=== PATIENT | female | born 1955 | race Hispanic/Latino ===

== ENCOUNTER 2016-12-23 10:28 | Emergency (ER) | payer MEDICARE ==
[2016-12-23] MEDS ORDERED: Albuterol-Ipratrop 3 mg / 0.5 (3 ml) UD IH STA ×2 (10:51)
[2016-12-23] MEDS ORDERED: Albuterol-Ipratrop 3 mg / 0.5 (3 ml) UD ONE (10:53)
--- NOTE | 2016-12-23 10:56 | ED PDOC ---
HPI: SOB/CHF/COPD Time Seen by Provider: 12/23/16 10:41 Chief Complaint (Nursing): Cough, Cold, Congestion Chief Complaint (Provider): Cough, Cold, Congestion History Per: Patient History/Exam Limitations: no limitations Onset/Duration Of Symptoms: Days Current Symptoms Are (Timing): Still Present Initiating Event: Upper Respiratory Illness Quality: Tightness Exacerbating Factor(s): Coughing Current Respiratory Medications: See Home Med List Associated Symptoms: Productive Cough. denies: Fever, Chills Additional Complaint(s): Patient is a 61 year old female with a history of COPD, presents to ED for evaluation of right sided chest pain for 2 days. Pain is associated with cough productive of yellow/brown sputum. Patient also reports SOB unrelieved with home nebulizer. Denies fever, palpations, dizziness, headache or hemoptysis Past Medical History Reviewed: Historical Data, Nursing Documentation, Vital Signs Vital Signs: Last Vital Signs Temp 98.2 F 12/23/16 10:37 Pulse 92 H 12/23/16 10:37 Resp 28 H 12/23/16 11:22 BP 132/79 12/23/16 10:37 Pulse Ox 95 12/23/16 11:22 - Medical History PMH: COPD, Fibromyalgia, HTN - Surgical History Surgical History: No Surg Hx - Family History Family History: States: Unknown Family Hx - Home Medications Home Medications: Ambulatory Orders Medication Instructions Recorded Naproxen [Naprosyn] 500 mg PO BID 09/28/16 Oxycodone HCl [Oxycontin] 20 mg PO Q12 09/28/16 Pregabalin [Lyrica] 75 mg PO BID 09/28/16 oxyCODONE/Acetaminophen [Percocet 1 tab PO BID 09/28/16 5/325 mg Tab] Albuterol 0.083% [Albuterol 3 ml IH Q8 #1 neb 12/23/16 Sulfate 3 Ml] Azithromycin [Zithromax] 250 mg PO DAILY #6 tab 12/23/16 Non-Formulary 1 ea .ROUTE Q6 #1 ea 12/23/16 predniSONE [predniSONE Tab] 10 mg PO TID #15 tab 12/23/16 - Allergies Allergies/Adverse Reactions: Allergies Allergy/AdvReac Type Severity Reaction Status Date / Time No Known Allergies Allergy Verified 02/03/15 19:48 Review of Systems ROS Statement: Except As Marked, All Systems Reviewed And Found Negative Constitutional: Negative for: Fever, Chills Cardiovascular: Positive for: Chest Pain. Negative for: Palpitations, Light Headedness Respiratory: Positive for: Cough, Shortness of Breath, Sputum Gastrointestinal: Negative for: Abdominal Pain Musculoskeletal: Negative for: Neck Pain Skin: Negative for: Rash Physical Exam - Reviewed Nursing Documentation Reviewed: Yes Vital Signs Reviewed: Yes - Physical Exam Appears: Positive for: Non-toxic, No Acute Distress Skin: Positive for: Normal Color, Warm. Negative for: Rash Eye Exam: Positive for: Normal appearance Neck: Positive for: Normal, Painless ROM Cardiovascular/Chest: Positive for: Regular Rate, Rhythm, Chest Non Tender Respiratory: Positive for: Decreased Breath Sounds, Rhonchi, Wheezing (mild expiratory right greater than left). Negative for: Respiratory Distress Gastrointestinal/Abdominal: Positive for: Normal Exam. Negative for: Tenderness Extremity: Positive for: Normal ROM. Negative for: Pedal Edema, Calf Tenderness Neurologic/Psych: Positive for: Alert, Oriented - Laboratory Results Result Diagrams: 12/23/16 10:55 12/23/16 10:55 - ECG O2 Sat by Pulse Oximetry: 89 (RA) Pulse Ox Interpretation: Abnormal - Progress Re-evaluation Time: 12:59 Condition: Improved Medical Decision Making Medical Decision Making: Time: 1050 Initial impression: COPD exacerbation r/o pneumonia Initial plan: -- VBG -- CMP -- Urine dip -- CBC -- CXR -- Duoneb x2, Solumedrol -- Blood culture Scribe Attestation: Documented by Lorie Middleton acting as a scribe for Jan Eason MD MD Scribe Attestation: All medical record entries made by the Scribe were at my direction and personally dictated by me. I have reviewed the chart and agree that the record accurately reflects my personal performance of the history, physical exam, medical decision making, and the department course for this patient. I have also personally directed, reviewed, and agree with the discharge instructions and disposition. Disposition - Clinical Impression Clinical Impression: COPD exacerbation - Patient ED Disposition Is Patient to be Admitted: No Counseled Patient/Family Regarding: Studies Performed, Diagnosis, Need For Followup, Rx Given - Disposition Referrals: [facility] [place] [Outside] Disposition: Routine/Home Disposition Time: 13:00 Condition: FAIR Prescriptions: Albuterol 0.083% [Albuterol Sulfate 3 Ml] 3 ml IH Q8 #1 neb Non-Formulary 1 ea .ROUTE Q6 #1 ea Azithromycin [Zithromax] 250 mg PO DAILY #6 tab predniSONE [predniSONE Tab] 10 mg PO TID #15 tab Instructions: COPD (Chronic Obstructive Pulmonary Disease) (ED)
[2016-12-23 11:22] LABS: BASO # 0.1 K/uL (0.0-0.2); BASO % 0.8 % (0.0-2.0); EOS # 0.2 K/uL (0.0-0.7); EOS % 1.8 % (0.0-4.0); HEMATOCRIT 45.1 % (34.0-47.0); LYMPH % 23.2 % (20.0-40.0); MEAN CORPUSCULAR HEMOGLOBIN 31.4 pg (27.0-31.0); MEAN CORPUSCULAR HGB CONC 33.4 g/dL (33.0-37.0); MEAN PLATELET VOLUME 7.3 fl (7.2-11.7); MONO # 0.6 K/uL (0.0-0.8); MONO % 7.4 % (0.0-10.0); NEUT # 5.8 K/uL (1.8-7.0); NEUT % 66.8 % (50.0-75.0); NRBC % 0.1 % (0.0-0.0); RED CELL DISTRIBUTION WIDTH 13.7 % (11.5-14.5); WHITE BLOOD COUNT 8.6 K/uL (4.8-10.8)
[2016-12-23 11:42] LABS: ALB/GLOB RATIO 1.1 (1.0-2.1); ALKALINE PHOSPHATASE 90 U/L (38-126); ALT/SGPT 10 U/L (9-52); AST/SGOT 18 U/L (14-36); BILIRUBIN,TOTAL 0.5 mg/dl (0.2-1.3); BLOOD UREA NITROGEN 14 mg/dl (7-17); CALCIUM 9.3 mg/dL (8.4-10.2); CARBON DIOXIDE 30 mmol/L (22-30); CHLORIDE 103 mmol/L (98-107); GFR AFRICAN-AMERICAN > 60; GLUCOSE,RANDOM 97 mg/dL (65-105); POTASSIUM 3.8 MMOL/L (3.6-5.0); SODIUM 143 mmol/l (132-148)
--- NOTE | 2016-12-23 12:48 | RAD ---
HISTORY: Cough. Technique: Single view portable erect @ 11:40. COMPARISON: 09/28/2016. FINDINGS: LUNGS: No active pulmonary disease. PLEURA: No significant pleural effusion identified, no pneumothorax apparent. CARDIOVASCULAR: No radiographic findings to suggest acute or significant cardiovascular disease. OSSEOUS STRUCTURES: No significant abnormalities. VISUALIZED UPPER ABDOMEN: Normal. OTHER FINDINGS: None. IMPRESSION: No active disease. No significant interval change compared to the prior examination(s).
[2016-12-23 13:07] VITALS: BP 132/74; PULSE 74; RESP 19; TEMP 98; O2SAT 96
== END 2016-12-23 13:20 | disposition home or self-care (01) ==
LOC: SUPCPDRO 10:28 → H.ER 10:28
DX: J44.1 Chronic obstructive pulmonary disease with (acute) exacerbation (principal); R05 Cough; I10 Essential (primary) hypertension; M79.7 Fibromyalgia
CPT/HCPCS: 71010; 80053; 85025; 87040; 94640; 96374; 99284; J2930

== ENCOUNTER 2017-06-17 07:09 | Emergency (ER) | payer MEDICARE ==
[2017-06-17 07:22] VITALS: BP 172/93; PULSE 82; RESP 16; TEMP 98.9; O2SAT 90
[2017-06-17] MEDS: Tetracaine 0.5% Ophth 2 ML BOTTLE OD ONE (08:00)
[2017-06-17] MEDS ORDERED: Tetracaine 0.5% Ophth 2 ML BOTTLE ONE (08:13)
[2017-06-17] MEDS: Ciprofloxacin 0.3% OPTH SOLN OD ONE (08:30)
--- NOTE | 2017-06-17 08:44 | ED PDOC ---
HPI: Eye Injury/Pain Time Seen by Provider: 06/17/17 07:19 Chief Complaint (Nursing): Eye Problem Chief Complaint (Provider): Eye problem History Per: Patient History/Exam Limitations: no limitations Onset/Duration Of Symptoms: Days (x1) Current Symptoms Are (Timing): Still Present Associated Symptoms: Pain (mild pain to light), FB Sensation, Other (mild blurry vision) Additional Complaint(s): Jesús Alex is a 62 year old female, with a past medical history of fibromyalgia and hypertension, who presents to the emergency department complaining of right eye pain since awakening. Patient has an indwelling pain pump. She thinks she might have poked her eye while sleeping but is unsure. Patient reports mild blurry vision, sense of foreign body and mild pain to light. She states she didn't take her blood pressure this morning. She denies any headaches, changes of speech or vision. PMD: None provided. Past Medical History Reviewed: Historical Data, Nursing Documentation, Vital Signs Vital Signs: Last Vital Signs Temp 98.9 F 06/17/17 07:19 Pulse 82 06/17/17 07:19 Resp 16 06/17/17 07:19 BP 172/93 H 06/17/17 07:19 Pulse Ox 90 L 06/17/17 07:19 - Medical History PMH: Asthma, COPD, Fibromyalgia, HTN, Hypercholesterolemia - Family History Family History: States: Unknown Family Hx - Social History Current smoker - smoking cessation education provided: Yes (Heavy smoker >10 cigarettes daily) Alcohol: None Drugs: Denies - Home Medications Home Medications: Ambulatory Orders Medication Instructions Recorded Naproxen [Naprosyn] 500 mg PO BID 09/28/16 Oxycodone HCl [Oxycontin] 20 mg PO Q12 09/28/16 Pregabalin [Lyrica] 75 mg PO BID 09/28/16 oxyCODONE/Acetaminophen [Percocet 1 tab PO BID 09/28/16 5/325 mg Tab] Albuterol 0.083% [Albuterol 3 ml IH Q8 #1 neb 12/23/16 Sulfate 3 Ml] Azithromycin [Zithromax] 250 mg PO DAILY #6 tab 12/23/16 Non-Formulary 1 ea .ROUTE Q6 #1 ea 12/23/16 predniSONE [predniSONE Tab] 10 mg PO TID #15 tab 12/23/16 - Allergies Allergies/Adverse Reactions: Allergies Allergy/AdvReac Type Severity Reaction Status Date / Time No Known Allergies Allergy Verified 06/17/17 07:18 Review of Systems ROS Statement: Except As Marked, All Systems Reviewed And Found Negative Eyes: Positive for: Pain (right eye pain and mild pain to light), Vision Change (mild blurry vision), Other (sense of foreign body) Neurological: Negative for: Change in Speech (or vision), Headache Physical Exam - Reviewed Nursing Documentation Reviewed: Yes Vital Signs Reviewed: Yes - Physical Exam Appears: Positive for: Well, Non-toxic, No Acute Distress Head Exam: Positive for: ATRAUMATIC, NORMAL INSPECTION, NORMOCEPHALIC Skin: Positive for: Normal Color, Warm, Dry Eye Exam: Positive for: Normal appearance (Cornea is quiet and appearance of pupil is 3mm and reactive. ), Conjunctival injection (mild to right eye), Other (Mild increased lachrymation) Neck: Positive for: Normal, Painless ROM, Supple Respiratory: Positive for: Normal Breath Sounds Extremity: Positive for: Normal ROM. Negative for: Pedal Edema, Deformity Neurologic/Psych: Positive for: Alert, Oriented, Gait (normal). Negative for: Motor/Sensory Deficits (strength is normal) - ECG O2 Sat by Pulse Oximetry: 90 (RA) Pulse Ox Interpretation: Abnormal Medical Decision Making Medical Decision Making: Initial Impression: Eye pain and corneal abrasion. Initial Plan: --Cilocan 0.3% Ophth SOLN --Tetracaine 0.5% Ophth Soln --reevaluation -2 drops of tetracaine applied to right eye with some relief of symptoms. Fluorescein applied to right eye with minimal uptake in lower cornea. Patient started on Ciprofloxacin drops and she states she will see her eye doctor today. Visual acuity performed with 20/30 on both eyes symmetric. Patient understands need for follow up with production bow maker, and referral for Dr. Chery contact center team lead. Patient did not want treatment for blood pressure in ER. Scribe Attestation: Documented by Praveen Adam, acting as a scribe for Alejandro Drake MD Provider Scribe Attestation: All medical record entries made by the Scribe were at my direction and personally dictated by me. I have reviewed the chart and agree that the record accurately reflects my personal performance of the history, physical exam, medical decision making, and the department course for this patient. I have also personally directed, reviewed, and agree with the discharge instructions and disposition. Disposition - Clinical Impression Clinical Impression: Eye pain, Corneal abrasion - Disposition Referrals: Peter Chery MD [Staff Provider] - Disposition Time: 08:30 Condition: STABLE Additional Instructions: Return to ER for any change in vision, use Cipro drops (2 drops to R eye) every 4 hours today. See your eye doctor today, or Dr Chery, if unable to see your own eye doctor. Instructions: Corneal Abrasion (ED), Blurred Vision (ED), Eye Pain (ED)
== END 2017-06-17 08:40 | disposition home or self-care (01) ==
LOC: H.ER 07:09
DX: H53.8 Other visual disturbances (principal)

== ENCOUNTER 2017-12-27 08:42 | Emergency (ER) | payer MEDICARE ==
[2017-12-27 08:56] VITALS: BMI 22.3
[2017-12-27 08:57] VITALS: BP 143/76; PULSE 79; RESP 16; TEMP 98.3; O2SAT 96
[2017-12-27] MEDS ORDERED: Morphine 5 MG/ML SYRINGE IM STA (09:18)
--- NOTE | 2017-12-27 09:22 | ED PDOC ---
HPI: General Adult Time Seen by Provider: 12/27/17 09:10 Chief Complaint (Nursing): Upper Extremity Problem/Injury Additional Complaint(s): 62 y/o F c PMHx HTN, HLD, COPD, fibromyalgia, pain pump implant, on chronic opiates p/w L shoulder pain x 4 days. Patient states she was laying down when someone knocked on the door and she suddenly jolted and has had this L shoulder pain since then. Pain is sharp, worse with movement or palpation, nonradiating, constant. She states it feels like an acute injury and not associated with her chronic pain. Denies fever, chills, dyspnea, nausea, vomiting, headstrike, LOC, numbness, or motor weakness. Past Medical History Vital Signs: Last Vital Signs Temp 98.3 F 12/27/17 08:56 Pulse 79 12/27/17 08:56 Resp 16 12/27/17 08:56 BP 143/76 12/27/17 08:56 Pulse Ox 96 12/27/17 09:23 - Medical History PMH: Asthma, COPD, Fibromyalgia, HTN, Hypercholesterolemia - Family History Family History: States: Unknown Family Hx - Home Medications Home Medications: Ambulatory Orders Medication Instructions Recorded Naproxen [Naprosyn] 500 mg PO BID 09/28/16 Oxycodone HCl [Oxycontin] 20 mg PO Q12 09/28/16 Pregabalin [Lyrica] 75 mg PO BID 09/28/16 oxyCODONE/Acetaminophen [Percocet 1 tab PO BID 09/28/16 5/325 mg Tab] Albuterol 0.083% [Albuterol 3 ml IH Q8 #1 neb 12/23/16 Sulfate 3 Ml] Azithromycin [Zithromax] 250 mg PO DAILY #6 tab 12/23/16 Non-Formulary 1 ea .ROUTE Q6 #1 ea 12/23/16 predniSONE [predniSONE Tab] 10 mg PO TID #15 tab 12/23/16 - Allergies Allergies/Adverse Reactions: Allergies Allergy/AdvReac Type Severity Reaction Status Date / Time No Known Allergies Allergy Verified 06/17/17 07:18 Review of Systems ROS Statement: Except As Marked, All Systems Reviewed And Found Negative Constitutional: Negative for: Fever Respiratory: Negative for: Shortness of Breath Physical Exam - Physical Exam Comments: Gen: NAD Head: NC/AT Eyes: No scleral icterus ENT: MMM Neck: No midline tenderness, FROM Chest: No tenderness, no clavicular tenderness CV: Regular rate Lungs: No accessory muscle use Extremities: L posterior shoulder tenderness, no edema, erythema or limited ROM Skin: No ecchymosis Neuro: Alert, motor and sensation intact in arm - ECG O2 Sat by Pulse Oximetry: 96 Medical Decision Making Medical Decision Making: Morphine IM injection for pain. Shoulder to exclude fracture or dislocation. XR negative for fracture or dislocation. Will discharge home, continue home medications, f/u PMD, return to ED for worsening pain, inability to range, or fever. Disposition - Clinical Impression Clinical Impression: Shoulder pain - Patient ED Disposition Is Patient to be Admitted: No - Disposition Disposition: Routine/Home Disposition Time: 09:52 Condition: STABLE Instructions: Shoulder Pain (DC) Forms: [employer] (Burkinan)
[2017-12-27] MEDS ORDERED: Morphine 4 MG/ML VIAL IM STA (09:59)
--- NOTE | 2017-12-27 16:50 | RAD ---
PROCEDURE: Radiographs of the Left Shoulder HISTORY: shoulder pain COMPARISON: No prior. FINDINGS: BONES: Normal. No fracture. JOINTS: Normal. Glenohumeral and acromioclavicular joints preserved. No osteoarthritis. SOFT TISSUES: Normal. OTHER FINDINGS: None. IMPRESSION: Normal radiographs of the left shoulder.
== END 2017-12-27 09:55 | disposition home or self-care (01) ==
LOC: H.ER 08:42
DX: M25.512 Pain in left shoulder (principal); E78.00 Pure hypercholesterolemia, unspecified; I10 Essential (primary) hypertension; M79.7 Fibromyalgia; Z79.891 Long term (current) use of opiate analgesic; J44.9 Chronic obstructive pulmonary disease, unspecified
CPT/HCPCS: 73030; 96372; 99283; J2270

== ENCOUNTER 2018-01-01 11:01 | Emergency (ER) | payer MEDICARE ==
[2018-01-01 11:01] VITALS: BMI 22.3
--- NOTE | 2018-01-01 11:40 | ED PDOC ---
Upper Extremity Pain/Injury Time Seen by Provider: 01/01/18 11:31 Chief Complaint (Nursing): Upper Extremity Problem/Injury Chief Complaint (Provider): left shoulder pain History Per: Patient (62 y/o female 62 y/o F c PMHx HTN, HLD, COPD, fibromyalgia , pain pump implant, on chronic opiates with L shoulder pain after falling outstretching on hands 4-5 days ago when moving suddenly to answer door. Has had xry yesterday negative. Was given morphine at that time that helped with pain. Seen by Yareli yesterday (pain management) with trigger point injections and mild temporary improvement of symptoms.) Past Medical History Reviewed: Historical Data, Nursing Documentation, Vital Signs Vital Signs: Last Vital Signs Temp 97.9 F 01/01/18 11:06 Pulse 90 01/01/18 11:06 Resp 18 01/01/18 11:06 BP 111/67 01/01/18 11:06 Pulse Ox 97 01/01/18 11:06 - Medical History PMH: Asthma, COPD, Fibromyalgia, HTN, Hypercholesterolemia - Family History Family History: States: Unknown Family Hx - Home Medications Home Medications: Ambulatory Orders Medication Instructions Recorded Naproxen [Naprosyn] 500 mg PO BID 09/28/16 Oxycodone HCl [Oxycontin] 20 mg PO Q12 09/28/16 Pregabalin [Lyrica] 75 mg PO BID 09/28/16 oxyCODONE/Acetaminophen [Percocet 1 tab PO BID 09/28/16 5/325 mg Tab] Albuterol 0.083% [Albuterol 3 ml IH Q8 #1 neb 12/23/16 Sulfate 3 Ml] Azithromycin [Zithromax] 250 mg PO DAILY #6 tab 12/23/16 Non-Formulary 1 ea .ROUTE Q6 #1 ea 12/23/16 predniSONE [predniSONE Tab] 10 mg PO TID #15 tab 12/23/16 Naproxen 375 mg PO Q12 PRN #14 tablet 01/01/18 - Allergies Allergies/Adverse Reactions: Allergies Allergy/AdvReac Type Severity Reaction Status Date / Time No Known Allergies Allergy Verified 01/01/18 11:19 Review of Systems ROS Statement: Except As Marked, All Systems Reviewed And Found Negative Physical Exam - Reviewed Nursing Documentation Reviewed: Yes Vital Signs Reviewed: Yes - Physical Exam Appears: Positive for: Well, Non-toxic, No Acute Distress Head Exam: Positive for: ATRAUMATIC, NORMAL INSPECTION, NORMOCEPHALIC Skin: Positive for: Normal Color, Warm, DRY Eye Exam: Positive for: EOMI, Normal appearance, PERRL ENT: Positive for: Normal ENT Inspection Neck: Positive for: Normal, Painless ROM Cardiovascular/Chest: Positive for: Regular Rate, Rhythm Respiratory: Positive for: CNT, Normal Breath Sounds Gastrointestinal/Abdominal: Positive for: Normal Exam, Soft Back: Positive for: Normal Inspection Extremity: Positive for: Normal ROM, Tenderness (subscapular left side tenderness) Neurologic/Psych: Positive for: Alert, Oriented - ECG O2 Sat by Pulse Oximetry: 97 - Progress ED Course And Treament: case d/w Dr. Downs [phone] Patient seen in his office yesterday/he gave trigger point injections. Recommends f/u with ortho for further evaluation. Disposition - Clinical Impression Clinical Impression: Shoulder strain - Patient ED Disposition Is Patient to be Admitted: No - Disposition Referrals: Delicia Foster MD [Staff Provider] - Disposition: Routine/Home Disposition Time: 11:42 Condition: FAIR Prescriptions: Naproxen 375 mg PO Q12 PRN #14 tablet PRN Reason: Pain, Moderate (4-7) Instructions: Shoulder Pain (DC) Forms: [employer] (Sri Lankan)
[2018-01-01 13:25] VITALS: BP 130/65; PULSE 67; RESP 16; TEMP 98.7; O2SAT 96
== END 2018-01-01 13:25 | disposition home or self-care (01) ==
LOC: H.ER 11:01
DX: M25.512 Pain in left shoulder (principal); E78.00 Pure hypercholesterolemia, unspecified; I10 Essential (primary) hypertension; M79.7 Fibromyalgia; J44.9 Chronic obstructive pulmonary disease, unspecified
CPT/HCPCS: 96372; 99283; J1885

== ENCOUNTER 2018-01-03 14:20 | Emergency (ER) | payer MEDICARE ==
[2018-01-03 14:20] VITALS: BMI 22.3
[2018-01-03 14:29] VITALS: BP 155/98; PULSE 91; RESP 18; TEMP 98.2; O2SAT 96
[2018-01-03] MEDS ORDERED: Lidocaine 5% Patch TD STA (14:42)
--- NOTE | 2018-01-03 15:27 | ED PDOC ---
Upper Extremity Pain/Injury Time Seen by Provider: 01/03/18 14:30 Chief Complaint (Nursing): Upper Extremity Problem/Injury Chief Complaint (Provider): Upper Ectremity Pain History Per: Patient History/Exam Limitations: no limitations Onset/Duration Of Symptoms: Days (x14) Current Symptoms Are (Timing): Still Present Additional Complaint(s): Jesús Alex is a 62 year old female with a past medical history of hypertension, hypercholesterolemia, COPD, and fibromyalgia who is presenting to the ER with son for evaluation of left shoulder pain, onset 2 weeks ago. Patient states that on December 27 she fell down and injured her left shoulder for which she was evaluated in this ED. An X-Ray was taken which showed no abnormalities. She returned to the ER on the due to continued pain. Patient states that she has been taking anti-inflammatory drugs with no relief of symptoms. Of note, patient reports having a "pain pump" which releases morphine. She denies any numbness, tingling, chest pain, or shortness of breath. Patient offers no other medical complaints at this time. PMD: Venu Andrade Past Medical History Reviewed: Historical Data, Nursing Documentation, Vital Signs Vital Signs: Last Vital Signs Temp 98.2 F 01/03/18 14:26 Pulse 91 H 01/03/18 14:26 Resp 18 01/03/18 14:26 BP 155/98 H 01/03/18 14:26 Pulse Ox 96 01/03/18 14:26 - Medical History PMH: Asthma, COPD, Fibromyalgia, HTN, Hypercholesterolemia - Family History Family History: States: No Known Family Hx - Social History Current smoker - smoking cessation education provided: Yes (Heavy) Alcohol: None Drugs: Denies - Home Medications Home Medications: Ambulatory Orders Medication Instructions Recorded Naproxen [Naprosyn] 500 mg PO BID 09/28/16 Oxycodone HCl [Oxycontin] 20 mg PO Q12 09/28/16 Pregabalin [Lyrica] 75 mg PO BID 09/28/16 oxyCODONE/Acetaminophen [Percocet 1 tab PO BID 09/28/16 5/325 mg Tab] Albuterol 0.083% [Albuterol 3 ml IH Q8 #1 neb 12/23/16 Sulfate 3 Ml] Azithromycin [Zithromax] 250 mg PO DAILY #6 tab 12/23/16 Non-Formulary 1 ea .ROUTE Q6 #1 ea 12/23/16 predniSONE [predniSONE Tab] 10 mg PO TID #15 tab 12/23/16 Naproxen 375 mg PO Q12 PRN #14 tablet 01/01/18 Meloxicam [Mobic] 1 - 2 tab PO DAILY PRN #15 tab 01/03/18 - Allergies Allergies/Adverse Reactions: Allergies Allergy/AdvReac Type Severity Reaction Status Date / Time No Known Allergies Allergy Verified 01/01/18 11:19 Review of Systems ROS Statement: Except As Marked, All Systems Reviewed And Found Negative Cardiovascular: Negative for: Chest Pain Respiratory: Negative for: Shortness of Breath Musculoskeletal: Positive for: Shoulder Pain (left) Neurological: Negative for: Numbness, Other (tingling) Physical Exam - Reviewed Nursing Documentation Reviewed: Yes Vital Signs Reviewed: Yes - Physical Exam Appears: Positive for: Non-toxic, No Acute Distress Head Exam: Positive for: ATRAUMATIC, NORMAL INSPECTION, NORMOCEPHALIC Skin: Positive for: Normal Color, Warm. Negative for: Rash Neck: Positive for: Normal, Painless ROM Cardiovascular/Chest: Positive for: Regular Rate, Rhythm, Chest Non Tender. Negative for: Murmur Respiratory: Positive for: Normal Breath Sounds. Negative for: Respiratory Distress Pulses-Radial (L): 2+ Pulses-Radial (R): 2+ Gastrointestinal/Abdominal: Positive for: Normal Exam, Soft, Other (no ecchymosis). Negative for: Tenderness Back: Positive for: Normal Inspection. Negative for: L CVA Tenderness, R CVA Tenderness, Vertebral Tenderness Extremity: Positive for: Tenderness (mild tenderness to left shoulder). Negative for: Deformity, Swelling Neurologic/Psych: Positive for: Alert, Oriented. Negative for: Motor/Sensory Deficits, Aphasia, Facial Droop - ECG O2 Sat by Pulse Oximetry: 96 (RA) Pulse Ox Interpretation: Normal Medical Decision Making Medical Decision Making: Time: 14:38 Plan: --CT Upper extremity --EKG --Lidoderm --Toradol [address] L shoulder x-ray: Degenerative changes of AC joint, suspect rotator cuff impingement. Recommend additional evaluation with MRI. On re-evaluation, pt. sleeping comfortably. Easily arousable. Shoulder sling offered but pt. refused. Reports pain has completely resolved with Toradol. Pt. and son informed of CT findings and advised to f/u with orthopedist for further evaluation. Both agree with plan. Also told to discontinue naproxen. Scribe Attestation: Documented by Maki Fang, acting as a scribe for Jefry Parry PA-C. Provider Scribe Attestation: All medical record entries made by the Scribe were at my direction and personally dictated by me. I have reviewed the chart and agree that the record accurately reflects my personal performance of the history, physical exam, medical decision making, and the department course for this patient. I have also personally directed, reviewed, and agree with the discharge instructions and disposition. Disposition - Clinical Impression Clinical Impression: Shoulder injury - Patient ED Disposition Is Patient to be Admitted: No - Disposition Referrals: Delicia Foster MD [Staff Provider] [facility] [[facility]] Disposition: Routine/Home Disposition Time: 16:24 Condition: IMPROVED Additional Instructions: Follow up with Dr. Naga Waters for further evaluation. Return to ED immediately if symptoms worsen. Prescriptions: Meloxicam [Mobic] 1 - 2 tab PO DAILY PRN #15 tab PRN Reason: Pain Instructions: Shoulder Sprain, Rotator Cuff Injury Forms: [employer] (Sinhala) Print Language: GREEK
--- NOTE | 2018-01-03 16:20 | CT ---
EXAM: CT Left Upper Extremity Without Intravenous Contrast, Shoulder EXAM DATE/TIME: 01/03/2018 2:38 PM CLINICAL HISTORY: 62 years old, female; Pain; Shoulder; Left; Additional info: Attention left shoulder TECHNIQUE: Axial computed tomography images of the left shoulder without intravenous contrast. All CT scans at this facility use one or more dose reduction techniques, viz.: automated exposure control; ma/kV adjustment per patient size (including targeted exams where dose is matched to indication; i.e. head); or iterative reconstruction technique. Coronal and sagittal reformatted images were created and reviewed. COMPARISON: No relevant prior studies available. FINDINGS: Bones/joints: Degenerative changes of AC joint. Loss of intervening fat plane with rotator cuff. Small joint effusion. Spondylosis lower cervical and thoracic spine. Degenerative disc disease. No acute fracture. No dislocation. Soft tissues: Unremarkable. Lung apices: Centrilobular emphysema. IMPRESSION: Degenerative changes of AC joint, suspect rotator cuff impingement. Recommend additional evaluation with MRI.
--- NOTE | 2018-01-04 10:24 | CARD ---
APPROVED REPORT EKG Measurement Heart [id number] <Conclusion> Normal sinus rhythm Normal ECG
== END 2018-01-03 16:37 | disposition home or self-care (01) ==
LOC: H.ER 14:20
DX: M25.511 Pain in right shoulder (principal); E78.00 Pure hypercholesterolemia, unspecified; I10 Essential (primary) hypertension; M79.7 Fibromyalgia; J44.9 Chronic obstructive pulmonary disease, unspecified
CPT/HCPCS: 73200; 93005; 96372; 99284; J1885

== ENCOUNTER 2018-06-01 10:31 | Observation (INO) | payer MEDICARE ==
[2018-06-01 10:31] VITALS: BMI 22.3
--- NOTE | 2018-06-01 11:54 | ED PDOC ---
HPI: General Adult Time Seen by Provider: 06/01/18 11:00 Chief Complaint (Nursing): Weakness/Neurological Deficit Chief Complaint (Provider): generalized weakness History Per: Patient History/Exam Limitations: no limitations Onset/Duration Of Symptoms: Days (x1) Current Symptoms Are (Timing): Still Present Additional Complaint(s): Jesús Alex is a 63 year old female, with a past medical history of fibromyalgia, COPD, HTN and migraines, who presents to the emergency department complaining of generalized weakness, difficulty breathing, nausea and worsening headaches onset for x1 week. Patient reports her blood pressure has been higher than usual and has been feeling off-balance with chest pain/sob. Patient has a pain pump and is currently seeing Dr. Downs for pain management. She denies any fever, chills, vomiting, diarrhea or other medical complaints. PMD: Venu Hilario Pain management: Dr. Downs at [facility] Past Medical History Reviewed: Historical Data, Nursing Documentation, Vital Signs Vital Signs: Last Vital Signs Temp 97.9 F 06/01/18 16:53 Pulse 70 06/01/18 17:37 Resp 16 06/01/18 17:37 BP 169/96 H 06/01/18 16:53 Pulse Ox 95 06/01/18 16:53 - Medical History PMH: Asthma, COPD, Fibromyalgia, HTN, Hypercholesterolemia, Migraine - Surgical History Surgical History: Cholecystectomy Other surgeries: hip replacement - Family History Family History: States: Unknown Family Hx - Social History Current smoker - smoking cessation education provided: Yes (half pack per day) Alcohol: None Drugs: Denies - Home Medications Home Medications: Ambulatory Orders Medication Instructions Recorded Acetaminophen/Butalbital/Caf 1 tab PO Q6 PRN 06/01/18 [Fioricet] Albuterol Sulfate [Ventolin Hfa] 2 puff IH Q4 PRN 06/01/18 Aliskiren [Tekturna] 150 mg PO DAILY 06/01/18 Azelastine HCl [Azelastine HCl] 1 spray NORAH BID PRN 06/01/18 Clonidine Pump 4.236 mcg DAILY 06/01/18 Cyclobenzaprine [Flexeril] 10 mg PO Q8 PRN 06/01/18 Esomeprazole Magnesium [Nexium] 40 mg PO DAILY 06/01/18 Morphine Pump 10.591 mg DAILY 06/01/18 Oxycodone HCl/Acetaminophen 1 tab PO Q6 PRN 06/01/18 [Percocet 10-325 mg Tablet] Pregabalin [Lyrica] 75 mg PO Q8 06/01/18 Verapamil HCl [Verelan Pm] 200 mg PO HS 06/01/18 - Allergies Allergies/Adverse Reactions: Allergies Allergy/AdvReac Type Severity Reaction Status Date / Time No Known Allergies Allergy Verified 06/01/18 10:34 Review of Systems ROS Statement: Except As Marked, All Systems Reviewed And Found Negative Constitutional: Positive for: Weakness (generalized). Negative for: Fever, Chills Respiratory: Positive for: Shortness of Breath Gastrointestinal: Positive for: Nausea. Negative for: Vomiting, Diarrhea Neurological: Positive for: Headache Physical Exam - Reviewed Nursing Documentation Reviewed: Yes Vital Signs Reviewed: Yes - Physical Exam Appears: Positive for: No Acute Distress Head Exam: Positive for: ATRAUMATIC, NORMOCEPHALIC Skin: Positive for: Normal Color, Warm, Dry Eye Exam: Positive for: Normal appearance, EOMI, PERRL ENT: Positive for: Normal ENT Inspection Neck: Positive for: Painless ROM Cardiovascular/Chest: Positive for: Regular Rate, Rhythm. Negative for: Murmur Respiratory: Positive for: Normal Breath Sounds. Negative for: Respiratory Distress Gastrointestinal/Abdominal: Positive for: Normal Exam, Soft, Other (pain pump in place to right side of abdomen). Negative for: Tenderness, Guarding, Rebound Back: Positive for: Normal Inspection Extremity: Positive for: Normal ROM (upper and lower extremities). Negative for : Deformity, Swelling Neurologic/Psych: Positive for: Alert, Oriented. Negative for: Motor/Sensory Deficits - Laboratory Results Result Diagrams: 06/01/18 12:15 06/01/18 12:15 - ECG ECG Rhythm: Positive for: Sinus Rhythm Interpretation Of ECG: Normal Sinus rhythm at 69 bpm Rate: 69 O2 Sat by Pulse Oximetry: 98 (RA) Pulse Ox Interpretation: Normal Medical Decision Making Medical Decision Making: Time: 11:17 Initial Impression: generalized weakness, headache, chest pain Initial Plan: --CMP --Troponin I --CBC w/ differential --Chest two views (PA/LAT) [RAD] --Reevaluation -Latest blood pressure is 141/77 13:30 -will admit patient to obs telly 13:53 CXR FINDINGS: LUNGS: Hyperinflation, manifestations of COPD. No active pulmonary disease. Chronic interstitial lung disease. PLEURA: No significant pleural effusion identified. No pneumothorax apparent. CARDIOVASCULAR: No radiographic findings to suggest acute or significant cardiovascular disease. OSSEOUS STRUCTURES: No significant abnormalities. VISUALIZED UPPER ABDOMEN: Normal. OTHER FINDINGS: None. IMPRESSION: No active disease. No significant interval change compared to the prior examination(s). CT head no acute findings. ----- Scribe Attestation: Documented by Praveen Adam, acting as a scribe for Diamond Reed MD. Provider Scribe Attestation: All medical record entries made by the Scribe were at my direction and personally dictated by me. I have reviewed the chart and agree that the record accurately reflects my personal performance of the history, physical exam, medical decision making, and the department course for this patient. I have also personally directed, reviewed, and agree with the discharge instructions and disposition. Time: 1422 -- Spoke to Dr. Andrade who agrees with plan of care for the patient. -- At this time, patient is now complaining of a headache. CT Head ordered for further evaluation -- Spoke to hospitalist, Dr. Barr who is covering for Dr. Herminio Boyle for admission to [facility]. Time: [address] RESULTS FINDINGS: HEMORRHAGE: No intracranial hemorrhage. BRAIN: No mass effect or edema. No atrophy or chronic microvascular ischemic changes. VENTRICLES: Unremarkable. No hydrocephalus. CALVARIUM: Unremarkable. PARANASAL SINUSES: Unremarkable as visualized. No significant inflammatory changes. MASTOID AIR CELLS: Unremarkable as visualized. No inflammatory changes. OTHER FINDINGS: None. IMPRESSION: No acute intracranial abnormalities. No significant findings to account for the clinical presentation. No significant interval change compared to the prior examination(s). Scribe Attestation: Documented by Lyle Caputo acting as a scribe for Diamond Reed MD. Provider Scribe Attestation: All medical record entries made by the Scribe were at my direction and personally dictated by me. I have reviewed the chart and agree that the record accurately reflects my personal performance of the history, physical exam, medical decision making, and the department course for this patient. I have also personally directed, reviewed, and agree with the discharge instructions and disposition. Disposition - Clinical Impression Clinical Impression: Muscle weakness, Generalized muscle weakness - Disposition Condition: STABLE
[2018-06-01 12:20] LABS: BASO % 0.7 % (0.0-2.0); EOS # 0.2 K/uL (0.0-0.7); EOS % 3.5 % (0.0-4.0); HEMOGLOBIN 15.5 g/dL (12.0-16.0); LYMPH # 1.6 K/uL (1.0-4.3); LYMPH % 29.7 % (20.0-40.0); MEAN CELL VOLUME 93.4 fl (81.0-99.0); MEAN CORPUSCULAR HEMOGLOBIN 30.8 pg (27.0-31.0); MEAN PLATELET VOLUME 7.8 fl (7.2-11.7); MONO # 0.3 K/uL (0.0-0.8); NEUT # 3.2 K/uL (1.8-7.0); NEUT % 60.1 % (50.0-75.0); NRBC % 0.1 % (0.0-0.0); RBC 5.02 Mil/uL (3.80-5.20); RED CELL DISTRIBUTION WIDTH 14.4 % (11.5-14.5); WHITE BLOOD COUNT 5.4 K/uL (4.8-10.8)
[2018-06-01 12:28] LABS: BLOOD UREA NITROGEN 13 mg/dl (7-17); CALCIUM 8.8 mg/dL (8.4-10.2); GFR NON-AFRICAN AMERICAN > 60
[2018-06-01 12:40] LABS: ALB/GLOB RATIO 1.1 (1.0-2.1); ALBUMIN 3.9 g/dL (3.5-5.0); ALT/SGPT 14 U/L (9-52); AST/SGOT 33 U/L (14-36)
--- NOTE | 2018-06-01 13:55 | RAD ---
Date of service: 06/01/2018 HISTORY: Hypertension. COMPARISON: 07/11/2017 TECHNIQUE: Chest PA and lateral FINDINGS: LUNGS: Hyperinflation, manifestations of COPD. No active pulmonary disease. Chronic interstitial lung disease. PLEURA: No significant pleural effusion identified. No pneumothorax apparent. CARDIOVASCULAR: No radiographic findings to suggest acute or significant cardiovascular disease. OSSEOUS STRUCTURES: No significant abnormalities. VISUALIZED UPPER ABDOMEN: Normal. OTHER FINDINGS: None. IMPRESSION: No active disease. No significant interval change compared to the prior examination(s).
[2018-06-01] MEDS ORDERED: Albuterol 0.083% Inhal Sol (2.5 mg/3 mL) UD INH ONE (14:24)
[2018-06-01] MEDS ORDERED: Albuterol 0.083% Inhal Sol (2.5 mg/3 mL) UD ONE (15:00)
--- NOTE | 2018-06-01 15:15 | CT ---
Date of service: 06/01/2018 PROCEDURE: CT HEAD WITHOUT CONTRAST. HISTORY: Chest pain, headache. Duration of symptoms unknown. COMPARISON: 09/28/2016. TECHNIQUE: Axial computed tomography images were obtained through the head/brain without intravenous contrast. Coronal and sagittal reconstructed images. Radiation dose: Total exam DLP = 805.00 mGy-cm. This CT exam was performed using one or more of the following dose reduction techniques: Automated exposure control, adjustment of the mA and/or kV according to patient size, and/or use of iterative reconstruction technique. FINDINGS: HEMORRHAGE: No intracranial hemorrhage. BRAIN: No mass effect or edema. No atrophy or chronic microvascular ischemic changes. VENTRICLES: Unremarkable. No hydrocephalus. CALVARIUM: Unremarkable. PARANASAL SINUSES: Unremarkable as visualized. No significant inflammatory changes. MASTOID AIR CELLS: Unremarkable as visualized. No inflammatory changes. OTHER FINDINGS: None. IMPRESSION: No acute intracranial abnormalities. No significant findings to account for the clinical presentation. No significant interval change compared to the prior examination(s).
--- NOTE | 2018-06-01 15:32 | CP.PCM.HP ---
History of Present Illness - History of Present Illness History of Present Illness: 63 yo female with history of HTN, COPD, fibromyalgia, and migraines presents because of chronic fatigue, shortness of breath, chest pain, and elevated blood pressure. Pt reports that she has been taking her blood pressure all week and has noted it to be elevated in the 160's/ 100's. She reports that the elevated blood pressure is associated with chest pressure, shortness of breath and headaches. She woke up this morning with a headache around 2 am of which she associated with her high blood pressure. She took three pills of fiorcet this morning with no relief. Headache was associated with generalized weakness and Tinnitus. She reports that her chronic fatigue has been worse lately because of stress. She feels she can barely walk 1/2 block a day for the past 2 weeks. Chest pressure is located substernally and described as a constant, non- radiating, 4-5/10 pain worsened with walking. She states nothing makes it better. She denies the use of oxygen at home, one sided weakness, trauma to the head, dizziness, nausea and vomiting. Patient has a pain pump that is followed by Dr. Downs (her pain physician). Family history: Mother had HTN and from Heart attack in her 40's; Social Hx: Smokes 1/2 pack per day for >45 years. Denies illicit drug use and alcohol use. Surgical hx: Hip replacement a couple of months ago in [facility]. PMD: Dr. Andrade Pain management: Dr. Downs. Present on Admission - Present on Admission Any Indicators Present on Admission: No History of DVT/PE: No History of Uncontrolled Diabetes: No Urinary Catheter: No Decubitus Ulcer Present: No Review of Systems - Constitutional Constitutional: Chills, Fatigue, Lethargy, Weakness. absent: Fever - EENT Eyes: Blurred Vision (with elevated bp). absent: Loss of Peripheral Vision, Pain - Cardiovascular Cardiovascular: Chest Pain. absent: Dyspnea on Exertion, Orthopnea, Palpitations, Pedal Edema Additional comments: Chest pressure with walking. - Respiratory Respiratory: Cough (productive cough), Dyspnea, Wheezing, Chest Congestion. absent: Hemoptysis - Gastrointestinal Gastrointestinal: absent: Abdominal Pain, Bloating, Cramping, Diarrhea, Nausea, Vomiting - Genitourinary Genitourinary: absent: Dysuria, Hematuria, Pyuria, Urinary Incontinence, Urinary Frequency, Urinary Urgency - Neurological Neurological: Headaches. absent: Abnormal Speech, Confusion, Convulsions, Dizziness, Numbness, Frequent Falls, Loss of Vision, Sensory Deficit, Tingling Past Patient History - Infectious Disease Hx of Infectious Diseases: None - Past Social History Smoking Status: Heavy Smoker > 10 Cigarettes Daily Chewing Tobacco Use: No Cigar Use: No Alcohol: None Drugs: Denies Home Situation {Lives}: With Family (lives with ) - CARDIAC Hx Hypercholesterolemia: Yes Hx Hypertension: Yes - PULMONARY Hx Asthma: Yes Hx Chronic Obstructive Pulmonary Disease (COPD): Yes - NEUROLOGICAL Hx Migraine: Yes - MUSCULOSKELETAL/RHEUMATOLOGICAL Hx Musculoskeletal Disorders: Yes - PSYCHIATRIC Hx Substance Use: No - SURGICAL HISTORY Hx Cholecystectomy: Yes - ANESTHESIA Hx Anesthesia: Yes Hx Anesthesia Reactions: No Meds Allergies/Adverse Reactions: Allergies Allergy/AdvReac Type Severity Reaction Status Date / Time No Known Allergies Allergy Verified 06/01/18 10:34 Physical Exam - Constitutional Appears: Non-toxic, No Acute Distress, Older Than Stated Age Additional comments: Lethargic on exam. - Head Exam Head Exam: ATRAUMATIC, NORMAL INSPECTION, NORMOCEPHALIC - Eye Exam Eye Exam: Normal appearance - ENT Exam ENT Exam: Mucous Membranes Dry Additional comments: Rugae on tongue- Dry mouth. - Neck Exam Neck exam: Negative for: Lymphadenopathy, Tenderness, Thyromegaly - Respiratory Exam Respiratory Exam: Decreased Breath Sounds, Prolonged Expiratory Phase, Wheezes ( expiratory wheezing. ). absent: Rales, Rhonchi - Cardiovascular Exam Cardiovascular Exam: REGULAR RHYTHM, RRR, +S1, +S2. absent: Diastolic murmur, Gallop, Rubs, +S4, Systolic Murmur - GI/Abdominal Exam GI & Abdominal Exam: Normal Bowel Sounds, Soft. absent: Distended, Firm, Guarding, Hernia, Organomegaly, Pulsatile Mass, Rebound Additional comments: + right mid-abdominal scar present where pain pump is located. - Extremities Exam Extremities exam: Positive for: normal inspection, pedal pulses present (+2 dorsalis pedis and tibialis.). Negative for: calf tenderness, joint swelling Additional comments: + Left 3rd toe with keratosis on lateral area. - Neurological Exam Neurological exam: Alert, Oriented x3 - Psychiatric Exam Psychiatric exam: Normal Affect - Skin Skin Exam: Dry, Intact, Normal Color, Warm Results - Vital Signs Recent Vital Signs: Last Vital Signs Temp 98 F 06/01/18 10:34 Pulse 69 06/01/18 14:27 Resp 12 06/01/18 12:02 BP 141/77 06/01/18 12:02 Pulse Ox 98 06/01/18 14:27 - Labs Result Diagrams: 06/01/18 12:15 06/01/18 12:15 Labs: Laboratory Results - last 24 hr 06/01/18 06/01/18 12:15 12:15 WBC 5.4 RBC 5.02 Hgb 15.5 Hct 46.9 MCV 93.4 MCH 30.8 MCHC 33.0 RDW 14.4 Plt Count 220 MPV 7.8 Neut % (Auto) 60.1 Lymph % (Auto) 29.7 [place] % (Auto) 6.0 Eos % (Auto) 3.5 Baso % (Auto) 0.7 Neut # (Auto) 3.2 Lymph # (Auto) 1.6 Hood # (Auto) 0.3 Eos # (Auto) 0.2 Baso # (Auto) 0.0 Sodium 137 Potassium 4.9 Chloride 101 Carbon Dioxide 31 H Anion Gap 10 BUN 13 Creatinine 0.6 L Est GFR ( Amer) > 60 Est GFR (Non-Af Amer) > 60 Random Glucose 86 Calcium 8.8 Total Bilirubin 0.9 AST 33 ALT 14 Alkaline Phosphatase 92 Troponin I < 0.0120 Total Protein 7.7 Albumin 3.9 Globulin 3.7 Albumin/Globulin Ratio 1.1 Assessment & Plan - Assessment and Plan (Free Text) Assessment: 63 yo female with history of HTN, COPD, fibromyalgia, and migraines presents because of chronic fatigue, shortness of breath, chest pain, and elevated blood pressure. Chronic fatigue is probably secondary to chronic fibromyalgia. Plan: 1. Chronic fatigue secondary to chronic fibromyalgia - Patient is on a pain pump (morphine and clonidine)- Son said he will bring in the necessary items for her pump infusions. - possible Depression- start Amitriptyline 10mg HS as it also helps with her chronic Fibromyalgia - Percocet 5-325 Q6H prn for severe pain - Continue Lyrica 75mg po Q8H - Continue Cyclobenzapine 10mg Q8H - Continue Modafinil 100mg po Daily. - F/U TSH, B12 level, Vitamin D, RPR 2. Chest pain - Rule out ACS - EKG-normal sinus rhythm - Troponin negative x1. - F/U Troponin levels (Q6H) x2 3. Hypertension - BP: 141/77 - controlled - Continue home medications Aliskiren and Verapamil. - Monitor vital signs. 4. COPD - Patient is saturating >92% on 2L NC - continue Ventolin 2 puff Q4-6H 5. Chronic Migraines - Continue home medication of Fioricet Q6H prn 6. DVT prophylaxis - Lovenox 40mg po daily and SCD's. 7. Code status - Full Code - Date & Time Date: 06/01/18 Time: 04:00
[2018-06-01] MEDS ORDERED: Albuterol HFA 90 mcg/actuation (8 g) IH PRN (16:59)
[2018-06-01] MEDS ORDERED: Apap-Butalbital-Caffeine 325-50-40mg Tab PO PRN (17:27)
[2018-06-01] MEDS: Oxycodone/Acetaminophen 5/325 mg Tab PO PRN (18:18)
[2018-06-01] MEDS ORDERED: VERAPAMIL HCL 200 MG PO SCH (22:00)
[2018-06-02] MEDS: Oxycodone/Acetaminophen 5/325 mg Tab PO PRN ×2 (00:13→09:29)
[2018-06-02 06:39] LABS: HEMOGLOBIN 14.5 g/dL (12.0-16.0); MEAN CELL VOLUME 92.7 fl (81.0-99.0); MEAN CORPUSCULAR HEMOGLOBIN 30.9 pg (27.0-31.0); MEAN CORPUSCULAR HGB CONC 33.3 g/dL (33.0-37.0); RBC 4.68 Mil/uL (3.80-5.20); RED CELL DISTRIBUTION WIDTH 13.9 % (11.5-14.5)
[2018-06-02] MEDS ORDERED: Enoxaparin 40 mg Syringe SC SCH (09:00)
[2018-06-02] MEDS ORDERED: MORPHINE SUBCUT SCH (09:00)
[2018-06-02] MEDS ORDERED: Ergocalciferol 50,000 Intl Units Cap PO SCH (09:00)
[2018-06-02] MEDS ORDERED: CLONIDINE SUBCUT SCH (09:00)
[2018-06-02 09:03] VITALS: BP 141/83; PULSE 61; RESP 20; TEMP 98.5; O2SAT 95
--- NOTE | 2018-06-02 11:53 | CP.PCM.DIS ---
Provider - Provider Date of Admission: 06/01/18 14:23 Attending physician: Alejandra Larson MD Time Spent in preparation of Discharge (in minutes): 30 Diagnosis - Discharge Diagnosis (1) Chronic fatigue fibromyalgia syndrome Status: Acute (2) HTN (hypertension) Status: Acute (3) COPD exacerbation Status: Acute Hospital Course - Lab Results Lab Results: Most Recent Lab Values WBC 6.0 K/uL (4.8-10.8) 06/02/18 06:00 RBC 4.68 Mil/uL (3.80-5.20) 06/02/18 06:00 Hgb 14.5 g/dL (12.0-16.0) 06/02/18 06:00 Hct 43.4 % (34.0-47.0) 06/02/18 06:00 MCV 92.7 fl (81.0-99.0) 06/02/18 06:00 MCH 30.9 pg (27.0-31.0) 06/02/18 06:00 MCHC 33.3 g/dL (33.0-37.0) 06/02/18 06:00 RDW 13.9 % (11.5-14.5) 06/02/18 06:00 Plt Count 222 K/uL (130-400) 06/02/18 06:00 MPV 7.8 fl (7.2-11.7) 06/01/18 12:15 Neut % (Auto) 60.1 % (50.0-75.0) 06/01/18 12:15 Lymph % (Auto) 29.7 % (20.0-40.0) 06/01/18 12:15 [place] % (Auto) 6.0 % (0.0-10.0) 06/01/18 12:15 Eos % (Auto) 3.5 % (0.0-4.0) 06/01/18 12:15 Baso % (Auto) 0.7 % (0.0-2.0) 06/01/18 12:15 Neut # (Auto) 3.2 K/uL (1.8-7.0) 06/01/18 12:15 Lymph # (Auto) 1.6 K/uL (1.0-4.3) 06/01/18 12:15 [place] # (Auto) 0.3 K/uL (0.0-0.8) 06/01/18 12:15 Eos # (Auto) 0.2 K/uL (0.0-0.7) 06/01/18 12:15 Baso # (Auto) 0.0 K/uL (0.0-0.2) 06/01/18 12:15 Sodium 137 mmol/l (132-148) 06/01/18 12:15 Potassium 4.9 MMOL/L (3.6-5.0) 06/01/18 12:15 Chloride 101 mmol/L (98-107) 06/01/18 12:15 Carbon Dioxide 31 mmol/L (22-30) H 06/01/18 12:15 Anion Gap 10 (10-20) 06/01/18 12:15 BUN 13 mg/dl (7-17) 06/01/18 12:15 Creatinine 0.6 mg/dl (0.7-1.2) L 06/01/18 12:15 Est GFR ( Amer) > 60 06/01/18 12:15 Est GFR (Non-Af Amer) > 60 06/01/18 12:15 Random Glucose 86 mg/dL (65-105) 06/01/18 12:15 Calcium 8.8 mg/dL (8.4-10.2) 06/01/18 12:15 Total Bilirubin 0.9 mg/dl (0.2-1.3) 06/01/18 12:15 AST 33 U/L (14-36) 06/01/18 12:15 ALT 14 U/L (9-52) 06/01/18 12:15 Alkaline Phosphatase 92 U/L (38-126) 06/01/18 12:15 Troponin I < 0.0120 ng/mL (0.00-0.120) 06/02/18 00:15 Total Protein 7.7 G/DL (6.3-8.2) 06/01/18 12:15 Albumin 3.9 g/dL (3.5-5.0) 06/01/18 12:15 Globulin 3.7 gm/dL (2.2-3.9) 06/01/18 12:15 Albumin/Globulin Ratio 1.1 (1.0-2.1) 06/01/18 12:15 Vitamin B12 184 pg/mL (239-931) L 06/01/18 16:38 25-OH Vitamin D Total < 12.8 NG/ML (30.0-100.0) L 06/01/18 16:38 TSH 3rd Generation 2.86 mIU/ML (0.46-4.68) 06/01/18 16:38 RPR Nonreactive (NONREACTIVE) 06/01/18 16:38 - Hospital Course Hospital Course: 63 yo female with history of HTN, COPD, fibromyalgia, and migraines presents because of chronic fatigue, shortness of breath, chest pain, and elevated blood pressure. Pt reports that she has been taking her blood pressure all week and has noted it to be elevated in the 160's/ 100's. She reports that the elevated blood pressure is associated with chest pressure, shortness of breath and headaches. She woke up this morning with a headache around 2 am of which she associated with her high blood pressure. She took three pills of fiorcet this morning with no relief. Headache was associated with generalized weakness and Tinnitus. She reports that her chronic fatigue has been worse lately because of stress. She feels she can barely walk 1/2 block a day for the past 2 weeks. Chest pressure is located substernally and described as a constant, non- radiating, 4-5/10 pain worsened with walking. She states nothing makes it better. PMD: Dr. Andrade Pain management: Dr. Downs. ED course: Patient was afebrile and vitally stable. V/S: T: 97.7 F ; HR: 70 ; BP: 132/76 ; O2 sat: 91 on RA. - Labs: 5.4 > 15.5/ 46.9 < 220 137/4.9 ; 101/31 ; 13/0.6 < 86 --Troponin levels were ordered. -Chest Xray: negative for active disease. - CT head performed: negative EKG- normal sinus rhythm. Patient was transferred to telemetry for observation to rule out ACS. Floor course: On the floor, patient continued to be vitally stable and her Oxygen saturation was >92% on 2L NC. Home medications were continued for patient 's Chronic pain secondary to Chronic fibromyalgia. Tropnonins x3 were obtained and were negative x3. Patient was started on Amytriptiline 10mg po HS for Chronic fibromyalgia. B12 level was found to be low (184) and she was given a IM B12 injection- 1000 mcg. Vitamin D was also found to be low (< 12.8) and she was given oral vitamin D 50,000 orally. Echo was performed, pending final read. Discharge Exam - Head Exam Head Exam: ATRAUMATIC, NORMOCEPHALIC - ENT Exam ENT Exam: Mucous Membranes Moist - Respiratory Exam Respiratory Exam: Decreased Breath Sounds, Prolonged Expiratory Phase, Wheezes ( mild global expiratory wheezing. ). absent: Rales, Rhonchi, Respiratory Distress, Stridor - Cardiovascular Exam Cardiovascular Exam: REGULAR RHYTHM, RRR, +S1, +S2. absent: Diastolic murmur, Gallop, Rubs, +S4, Systolic Murmur - GI/Abdominal Exam GI & Abdominal Exam: Normal Bowel Sounds, Soft. absent: Diminished Bowel Sounds , Distended, Firm, Guarding, Mass, Pulsatile Mass, Rebound, Tenderness Additional comments: + right mid abdominal scar secondary to where pain pump is located. nontender. - Extremities Exam Extremities exam: normal inspection, pedal pulses present (+2 dorsalis pedis pulses bilaterally. ) - Neurological Exam Neurological exam: Alert, Oriented x3 - Psychiatric Exam Psychiatric exam: Normal Affect - Skin Skin Exam: Dry, Intact, Normal Color, Warm Discharge Plan - Discharge Medications Prescriptions: Amitriptyline [Elavil] 25 mg PO HS #30 tab Cyanocobalamin [Vitamin B12 1000 mcg Tab] 1,000 mcg PO DAILY #7 tab Ergocalciferol (Vitamin D2) [Vitamin D2] 50,000 unit PO QWK #4 capsule - Follow Up Plan Condition: STABLE Disposition: HOME/ ROUTINE Patient education suggested?: Yes
--- NOTE | 2018-06-02 14:03 | CARD ---
APPROVED REPORT Date of service: 06/02/2018 EXAM: Two-dimensional and M-mode echocardiogram with Doppler and color Doppler. Other Information Quality : GoodRhythm : NSR INDICATION Dyspnea 2D DIMENSIONS IVSd1.10 (0.7-1.1cm)LVDd4.59 (3.9-5.9cm) LVOT Diameter2.34 (1.8-2.4cm)PWd1.02 (0.7-1.1cm) IVSs1.44 (0.8-1.2cm)LVDs2.60 (2.5-4.0cm) FS (%) 43.3 %PWs1.41 (0.8-1.2cm) M-Mode DIMENSIONS Left Atrium (MM)3.88 (2.5-4.0cm)IVSd1.10 (0.7-1.1cm) Aortic Root3.62 (2.2-3.7cm)LVDd5.18 (4.0-5.6cm) Aortic Cusp Exc.2.26 (1.5-2.0cm)PWd1.12 (0.7-1.1cm) IVSs1.88 cmFS (%) 45 % LVDs2.82 (2.0-3.8cm)PWs1.41 cm Aortic Valve AoV Peak Iannngmf19.7cm/sAoV VTI15.0cmAO Peak GR.3mmHg LVOT Peak Qwfgnfsk07.7cm/sLVOT VTI15.60cmAO Mean GR.2mmHg ASHTYN (VMAX)2.00rs0ZZQ (VTI)2.74cm2 Mitral Valve MV E Jtdpltei83.4cm/sMV DECEL [id number] A Mcalrmht69.7cm/s MV QDS41faK/A ratio0.8MVA (PHT)2.25cm2 TDI Lateral E' Peak V7.33cm/sMedial E' Peak V5.46cm/sE/Lateral E'5.1 E/Medial E'6.8 LEFT VENTRICLE The left ventricle is normal size. There is normal left ventricular wall thickness. The left ventricular systolic function is normal. The estimated ejection fraction is 55-60% No regional wall motion abnormalities noted.. Transmitral Doppler flow pattern is Grade I-abnormal relaxation pattern. No left ventricle thrombus noted on this study. There is no ventricular septal defect visualized. There is no mass noted in the left ventricle. RIGHT VENTRICLE The right ventricle is normal size. There is normal right ventricular wall thickness. The right ventricular systolic function is normal. ATRIA The left atrium size is normal. The right atrium size is normal. The interatrial septum is intact with no evidence for an atrial septal defect. AORTIC VALVE The aortic valve is normal in structure. No aortic regurgitation is present. There is no aortic valvular stenosis. MITRAL VALVE The mitral valve is normal in structure. There is no mitral valve stenosis. There is trivial to mild mitral valve regurgitation noted. TRICUSPID VALVE The tricuspid valve is normal in structure. There is trivial tricuspid valve regurgitation noted. PULMONIC VALVE The pulmonary valve is normal in structure. There is no pulmonic valvular regurgitation. GREAT VESSELS The aortic root is normal in size. The ascending aorta is normal in size. The pulmonary artery is normal. The IVC is normal in size and collapses >50% with inspiration. PERICARDIAL EFFUSION There is no pericardial effusion. <Conclusion> Trivial to mild mitral insufficiency Normal LV systolic function with doppler hemodynamics consistent with abnormal relaxation The estimated ejection fraction is 55-60%
== END 2018-06-02 12:49 | disposition home or self-care (01) ==
LOC: H.ER 10:31 → H.ERHOLD 14:23 → H.TEL 16:37
PROVIDERS: ADMIT Hospitalist; ATTEND Hospitalist
DX: G89.4 Chronic pain syndrome (principal); M79.7 Fibromyalgia; J44.1 Chronic obstructive pulmonary disease with (acute) exacerbation; R64 Cachexia; Z68.1 Body mass index [BMI] 19.9 or less, adult; G43.909 Migraine, unspecified, not intractable, without status migrainosus; R07.89 Other chest pain; E53.8 Deficiency of other specified B group vitamins; E55.9 Vitamin D deficiency, unspecified; E78.00 Pure hypercholesterolemia, unspecified; I10 Essential (primary) hypertension; F17.210 Nicotine dependence, cigarettes, uncomplicated; H93.19 Tinnitus, unspecified ear; Z79.891 Long term (current) use of opiate analgesic; Z96.649 Presence of unspecified artificial hip joint; Z79.899 Other long term (current) drug therapy
CPT/HCPCS: 36415; 70450; 71046; 80053; 82306; 82607; 84443; 84484; 85025; 85027; 86592; 93306; 99285; G0378; J1650

== ENCOUNTER 2018-06-28 15:15 | Emergency (ER) | payer MEDICARE ==
[2018-06-28 15:15] VITALS: BMI 22.3
[2018-06-28 15:21] VITALS: BP 183/97; PULSE 63; RESP 16; TEMP 98; O2SAT 99
--- NOTE | 2018-06-28 15:46 | ED PDOC ---
Upper Extremity Pain/Injury Chief Complaint (Provider): left elbow pain History Per: Patient History/Exam Limitations: no limitations Current Symptoms Are (Timing): Still Present Additional Complaint(s): Jesús Alex is a 63 year old female who is presenting to the emergency room for evaluation of pain and swelling to the left elbow x 1.5 weeks. Patient states that her elbow has been sore for a few days and adds that she noticed redness today. She reports that in the past she had a cyst that was drained from the same elbow. Patient also states she has RI 3 week ago which was treated with stent placement. Patient denies any chest pain, SOB or CLARKE at this time. Patient offers no other medical complaints. PMD: Venu Andrade <Stephanie Mackenzie - Last Filed: 06/28/18 16:12> <Nora Santa - Last Filed: 06/28/18 23:58> Time Seen by Provider: 06/28/18 15:28 Chief Complaint (Nursing): Upper Extremity Problem/Injury Supervising Attending Note - Attestation: I have personally seen and examined this patient.: No I have reviewed all pertinent clinical information: Yes <Nora Santa F - Last Filed: 06/28/18 23:58> Past Medical History Reviewed: Historical Data, Nursing Documentation, Vital Signs Vital Signs: Last Vital Signs Temp 98.0 F 06/28/18 15:18 Pulse 63 06/28/18 15:18 Resp 16 06/28/18 15:18 BP 183/97 H 06/28/18 15:18 Pulse Ox 99 06/28/18 15:18 - Medical History PMH: Anxiety, Asthma, COPD, Fibromyalgia, HTN, Hypercholesterolemia, Migraine - Surgical History Surgical History: Cholecystectomy - Family History Family History: States: No Known Family Hx - Living Arrangements Living Arrangements: With Family - Social History Current smoker - smoking cessation education provided: No Ex-Smoker (has not smoked in the last 12 months): Yes (quit 3 weeks ago) Alcohol: None Drugs: Denies <Stephanie Mackenzie - Last Filed: 06/28/18 16:12> Vital Signs: Last Vital Signs Temp 98.0 F 06/28/18 15:18 Pulse 63 06/28/18 15:18 Resp 16 06/28/18 15:18 BP 183/97 H 06/28/18 15:18 Pulse Ox 99 06/28/18 16:19 <Nora Santa - Last Filed: 06/28/18 23:58> - Home Medications Home Medications: Ambulatory Orders Medication Instructions Recorded Clonidine Pump 4.236 mcg DAILY 06/01/18 Morphine Pump 10.591 mg DAILY 06/01/18 RX: Acetaminophen/Butalbital/Caf 1 tab PO Q6 PRN 06/01/18 [Fioricet] RX: Albuterol Sulfate [Ventolin 2 puff IH Q4 PRN 06/01/18 Hfa] RX: Azelastine HCl 1 spray NORAH BID PRN 06/01/18 RX: Cyclobenzaprine [Flexeril] 10 mg PO Q8 PRN 06/01/18 RX: Esomeprazole Magnesium [Nexium] 40 mg PO DAILY 06/01/18 RX: Oxycodone HCl/Acetaminophen 1 tab PO Q6 PRN 06/01/18 [Percocet 10-325 mg Tablet] RX: Amitriptyline [Elavil] 25 mg PO HS #30 tab 06/02/18 RX: Cyanocobalamin [Vitamin B12 1,000 mcg PO DAILY #7 tab 06/02/18 1000 mcg Tab] RX: Ergocalciferol (Vitamin D2) 50,000 unit PO QWK #4 capsule 06/02/18 [Vitamin D2] RX: Aspirin [Aspirin Chewable] 81 mg PO DAILY 30 Days chew 06/15/18 RX: Metoprolol Tartrate [Lopressor] 25 mg PO BID 30 Days tab 06/15/18 RX: Rosuvastatin Calcium [Crestor] 5 mg PO HS 30 Days tab 06/15/18 RX: Ticagrelor [Brilinta] 90 mg PO BID 30 Days tab 06/15/18 RX: Lisinopril [Zestril] 10 mg PO DAILY 30 Days tab 06/16/18 RX: Clindamycin [Cleocin] 300 mg PO TID #21 cap 06/28/18 - Allergies Allergies/Adverse Reactions: Allergies Allergy/AdvReac Type Severity Reaction Status Date / Time No Known Allergies Allergy Verified 06/01/18 10:34 Review of Systems ROS Statement: Except As Marked, All Systems Reviewed And Found Negative Cardiovascular: Negative for: Chest Pain Musculoskeletal: Positive for: Arm Pain (pain, redness and swelling to left elbow) <Stephanie Mackenzie - Last Filed: 06/28/18 16:12> Physical Exam - Reviewed Nursing Documentation Reviewed: Yes Vital Signs Reviewed: Yes - Physical Exam Appears: Positive for: Well, Non-toxic, No Acute Distress Head Exam: Positive for: ATRAUMATIC, NORMAL INSPECTION, NORMOCEPHALIC Skin: Positive for: Normal Color. Negative for: Rash Eye Exam: Positive for: Normal appearance Cardiovascular/Chest: Positive for: Regular Rate, Rhythm Respiratory: Positive for: Normal Breath Sounds. Negative for: Wheezing, Respiratory Distress Extremity: Positive for: Other (local cellulitis to left olecranon, no erythematous streaking, localilzed swelling to olecranon consistent with bursitis, no palpable fluid collection noted) Neurologic/Psych: Positive for: Alert, Oriented. Negative for: Motor/Sensory Deficits <Stephanie Mackenzie - Last Filed: 06/28/18 16:12> - ECG O2 Sat by Pulse Oximetry: 99 (RA) Pulse Ox Interpretation: Normal <Stephanie Mackenzie - Last Filed: 06/28/18 16:12> Medical Decision Making Medical Decision Making: Time: 15:42 Impression: 63 year old female with cellulitis Plan: --Clindamycin 300 mg PO Upon provider evaluation patient is medically stable, and requires no further treatment in the ED at this time. Patient will be discharged with Rx for Clindamycin. Counseling was provided and all questions were answered regarding diagnosis and need for follow up with Ortho. There is agreement to discharge plan. Return if symptoms persist or worsen. Patient was also counseled on applying warm compresses with Epsom salts to affected area as often as possible. Scribe Attestation: Documented by Maki Fang, acting as a scribe for Stephanie Mackenzie PA-C. Provider Scribe Attestation: All medical record entries made by the Scribe were at my direction and personally dictated by me. I have reviewed the chart and agree that the record accurately reflects my personal performance of the history, physical exam, medical decision making, and the department course for this patient. I have also personally directed, reviewed, and agree with the discharge instructions and disposition. <Stephanie Mackenzie - Last Filed: 06/28/18 16:12> Disposition - Patient ED Disposition Is Patient to be Admitted: No Counseled Patient/Family Regarding: Diagnosis, Need For Followup, Rx Given - Disposition Disposition: Routine/Home Disposition Time: 16:17 <Stephanie Mackenzie - Last Filed: 06/28/18 16:12> <Nora Santa - Last Filed: 06/28/18 23:58> - Clinical Impression Clinical Impression: Cellulitis of left elbow, Olecranon bursitis of left elbow - Disposition Referrals: Venu Andrade MD [Family Provider] - Condition: STABLE Additional Instructions: Apply warm compresses with Epsom salts to affected area as often as possible. Take antibiotics as directed. Follow-up in 2-3 days with primary doctor or specialiat. Prescriptions: RX: Clindamycin [Cleocin] 300 mg PO TID #21 cap Instructions: Olecranon Bursitis, Cellulitis (Skin Infection), Adult (DC) Forms: [employer] (Bermudian)
== END 2018-06-28 16:26 | disposition home or self-care (01) ==
LOC: H.ER 15:15
DX: L03.114 Cellulitis of left upper limb (principal); M70.22 Olecranon bursitis, left elbow

== ENCOUNTER 2018-09-13 16:53 | Emergency (ER) | payer MEDICARE ==
[2018-09-13 16:57] VITALS: BMI 21.7
--- NOTE | 2018-09-13 17:40 | ED PDOC ---
HPI:Nausea, Vomiting, Diarrhea Time Seen by Provider: 09/13/18 17:05 Chief Complaint (Nursing): Abdominal Pain Chief Complaint (Provider): Vomiting, Diarrhea, Abdominal Pain History Per: Patient History/Exam Limitations: no limitations Onset/Duration Of Symptoms: Hrs (since 0700 this morning) Current Symptoms Are (Timing): Still Present Additional Complaint(s): 63 year old female presents to the ED for evaluation of over ten episodes of intractable non-bilious, non-bloody vomiting since approx. 0700 this morning and about five episodes of watery, non-bloody diarrhea that developed a little later associated with crampy abdominal pain and generalized weakness. She reports her neighbor has similar symptoms, but not as severe. Denies chest pain, shortness of breath, and recent travel. Of note, in 05/2018 she suffered from a GA and had a cath with stents placed. PMD: Dr. Redmond Past Medical History Reviewed: Historical Data, Nursing Documentation, Vital Signs Vital Signs: Last Vital Signs Temp 99.4 F 09/13/18 16:55 Pulse 95 H 09/13/18 16:55 Resp 16 09/13/18 16:55 BP 115/72 09/13/18 16:55 Pulse Ox 94 L 09/13/18 16:55 - Medical History PMH: Anxiety, Asthma, CAD, COPD, Fibromyalgia, HTN, Hypercholesterolemia, Migraine Denies: Chronic Kidney Disease Other PMH: GA - Surgical History Surgical History: Cholecystectomy, Coronary Stent Other surgeries: surgery for pain medication implant - Family History Family History: States: Unknown Family Hx - Social History Current smoker - smoking cessation education provided: No Ex-Smoker (has not smoked in the last 12 months): Yes (quit 05/2018, previously a heavy smoker) Alcohol: None Drugs: Denies - Immunization History Hx Tetanus Toxoid Vaccination: No Hx Influenza Vaccination: No Hx Pneumococcal Vaccination: No - Home Medications Home Medications: Ambulatory Orders Medication Instructions Recorded Clonidine Pump 4.236 mcg DAILY 06/01/18 Morphine Pump 10.591 mg DAILY 06/01/18 RX: Acetaminophen/Butalbital/Caf 1 tab PO Q6 PRN 06/01/18 [Fioricet] RX: Albuterol Sulfate [Ventolin 2 puff IH Q4 PRN 06/01/18 Hfa] RX: Azelastine HCl 1 spray NORAH BID PRN 06/01/18 RX: Cyclobenzaprine [Flexeril] 10 mg PO Q8 PRN 06/01/18 RX: Esomeprazole Magnesium [Nexium] 40 mg PO DAILY 06/01/18 RX: Oxycodone HCl/Acetaminophen 1 tab PO Q6 PRN 06/01/18 [Percocet 10-325 mg Tablet] RX: Amitriptyline [Elavil] 25 mg PO HS #30 tab 06/02/18 RX: Cyanocobalamin [Vitamin B12 1,000 mcg PO DAILY #7 tab 06/02/18 1000 mcg Tab] RX: Ergocalciferol (Vitamin D2) 50,000 unit PO QWK #4 capsule 06/02/18 [Vitamin D2] RX: Aspirin [Aspirin Chewable] 81 mg PO DAILY 30 Days chew 06/15/18 RX: Metoprolol Tartrate [Lopressor] 25 mg PO BID 30 Days tab 06/15/18 RX: Rosuvastatin Calcium [Crestor] 5 mg PO HS 30 Days tab 06/15/18 RX: Ticagrelor [Brilinta] 90 mg PO BID 30 Days tab 06/15/18 RX: Lisinopril [Zestril] 10 mg PO DAILY 30 Days tab 06/16/18 RX: Clindamycin [Cleocin] 300 mg PO TID #21 cap 06/28/18 Dicyclomine [Bentyl] 20 mg PO QID PRN #20 tab 09/13/18 Nitrofurantoin Macrocrystals 1 cap PO BID #14 cap 09/13/18 [Macrobid] Ondansetron ODT [Zofran ODT] 1 odt PO Q6 PRN #20 odt 09/13/18 - Allergies Allergies/Adverse Reactions: Allergies Allergy/AdvReac Type Severity Reaction Status Date / Time No Known Allergies Allergy Verified 06/01/18 10:34 Review of Systems ROS Statement: Except As Marked, All Systems Reviewed And Found Negative (as per HPI) Constitutional: Positive for: Weakness (generalized) Cardiovascular: Negative for: Chest Pain Respiratory: Negative for: Shortness of Breath Gastrointestinal: Positive for: Vomiting (intractable, non-bloody, non-bilious), Abdominal Pain (crampy), Diarrhea (watery, non-bloody) Physical Exam - Reviewed Nursing Documentation Reviewed: Yes Vital Signs Reviewed: Yes - Physical Exam Appears: Positive for: In Acute Distress (mild painful; tired appearing) Head Exam: Positive for: ATRAUMATIC, NORMOCEPHALIC Skin: Positive for: Warm, Dry Eye Exam: Positive for: EOMI, PERRL ENT: Positive for: Other (mucus membranes dry) Neck: Positive for: Painless ROM, Supple Cardiovascular/Chest: Positive for: Regular Rate, Rhythm. Negative for: Bradycardia Respiratory: Positive for: Rhonchi. Negative for: Respiratory Distress Gastrointestinal/Abdominal: Positive for: Soft, Tenderness (mild diffuse), Other (implant in place, palpable and nontender). Negative for: Mass, Distended, Guarding, Rebound Back: Positive for: Normal Inspection. Negative for: Decreased ROM Extremity: Positive for: Normal ROM. Negative for: Deformity Lymphatic: Negative for: Adenopathy Neurologic/Psych: Positive for: Alert. Negative for: Motor/Sensory Deficits - Laboratory Results Result Diagrams: 09/13/18 17:40 09/13/18 17:40 - ECG O2 Sat by Pulse Oximetry: 94 Pulse Ox Interpretation: Abnormal Interpretation Of Abnormal: hx asthma and COPD Medical Decision Making Medical Decision Making: Time: 1723 Initial Impression: vomiting and diarrhea DDx includes but is not limited to: gastroenteritis, dehydration, electrolyte abnormality, viral syndrome Initial Plan: --Type and screen --EKG --CMP --Lact acid --Lipase --Magnesium and phosphorus --Trop I --CBC with differential --PT / PTT --Bentyl 20mg PO --Zofran 8mg IV --Influenza A B swab --Urinalysis 0 Labs unremarkable and patient feeling better and eager to be discharge. Has mild hypoxia which may be secondary to COPD exacerbation. Duoneb ordered but pt otherwise stable for discharge. Scribe Attestation: Documented by Mary Tian, acting as a scribe for Stephanie Fagan MD. Provider Scribe Attestation: All medical record entries made by the Scribe were at my direction and personally dictated by me. I have reviewed the chart and agree that the record accurately reflects my personal performance of the history, physical exam, medical decision making, and the department course for this patient. I have also personally directed, reviewed, and agree with the discharge instructions and disposition. Disposition - Clinical Impression Clinical Impression: Vomiting and diarrhea, Asthma exacerbation Counseled Patient/Family Regarding: Studies Performed, Diagnosis, Need For Followup - Disposition Referrals: Venu Redmond MD [Staff Provider] - Disposition: Routine/Home Disposition Time: 20:00 Condition: IMPROVED Prescriptions: Dicyclomine [Bentyl] 20 mg PO QID PRN #20 tab PRN Reason: abdominal pain Nitrofurantoin Macrocrystals [Macrobid] 1 cap PO BID #14 cap Ondansetron ODT [Zofran ODT] 1 odt PO Q6 PRN #20 odt PRN Reason: Nausea/Vomiting Instructions: Asthma, Adult (DC), Viral Gastroenteritis, Adult (DC)
[2018-09-13 18:06] LABS: BASO % 0.3 % (0.0-2.0); EOS # 0.1 K/uL (0.0-0.7); LYMPH # 0.4 K/uL (1.0-4.3); LYMPH % 5.1 % (20.0-40.0); MEAN CELL VOLUME 91.6 fl (81.0-99.0); MEAN CORPUSCULAR HEMOGLOBIN 30.3 pg (27.0-31.0); MEAN CORPUSCULAR HGB CONC 33.1 g/dL (33.0-37.0); MEAN PLATELET VOLUME 7.6 fl (7.2-11.7); MONO # 0.2 K/uL (0.0-0.8); MONO % 2.2 % (0.0-10.0); NEUT # 7.7 K/uL (1.8-7.0); NEUT % 91.4 % (50.0-75.0); PLATELET COUNT 192 K/uL (130-400); RBC 4.61 Mil/uL (3.80-5.20); RED CELL DISTRIBUTION WIDTH 14.1 % (11.5-14.5); WHITE BLOOD COUNT 8.4 K/uL (4.8-10.8)
[2018-09-13 18:14] LABS: PROTHROMBIN TIME 10.8 Seconds (9.8-13.1)
[2018-09-13 18:17] LABS: PARTIAL THROMBOPLASTIN TIME 28.3 Seconds (25.6-37.1)
[2018-09-13 18:19] LABS: ALB/GLOB RATIO 1.2 (1.0-2.1); ALBUMIN 4.2 g/dL (3.5-5.0); ALT/SGPT 23 U/L (9-52); AST/SGOT 25 U/L (14-36); BLOOD UREA NITROGEN 22 mg/dl (7-17); CALCIUM 9.1 mg/dL (8.4-10.2); GFR NON-AFRICAN AMERICAN > 60; LIPASE 58 U/L (23-300)
[2018-09-13 19:12] LABS: ANISOCYTOSIS SLIGHT; LYMPHOCYTE 7 % (20-50); MONOCYTE 3 % (0-10); NEUTROPHIL 90 % (42-75); OVALOCYTES SLIGHT; PLATELET ESTIMATE NORMAL (NORMAL); TOTAL CELLS COUNTED 100
[2018-09-13 19:13] LABS: LARGE PLATELETS PRESENT
[2018-09-13] MEDS ORDERED: Albuterol-Ipratrop 3 mg / 0.5 (3 ml) UD ONE (20:16)
[2018-09-13] MEDS: Albuterol-Ipratrop 3 mg / 0.5 (3 ml) UD INH STA (20:16)
[2018-09-13 20:22] LABS: SQUAMOUS EPITHIAL 1 /hpf (0-5); URINE AMORPHOUS SEDIMENT RARE /ul (<OCC); URINE BACTERIA RARE (<OCC); URINE BILIRUBIN NEGATIVE (NEGATIVE); URINE BLOOD NEGATIVE (NEGATIVE); URINE CLARITY CLOUDY (Clear); URINE COLOR YELLOW (YELLOW); URINE GLUCOSE (UA) NEG (NEGATIVE); URINE LEUKOCYTE ESTERASE NEG Leu/uL (Negative); URINE PROTEIN 30 mg/dL (NEGATIVE)
--- NOTE | 2018-09-13 20:35 | CARD ---
APPROVED REPORT Date of service: 09/13/2018 EKG Measurement Heart [id number] <Conclusion> Normal sinus rhythm Low voltage QRS Possible Inferior infarct, age undetermined Abnormal ECG
[2018-09-13 20:36] VITALS: BP 115/66; PULSE 96; RESP 18; TEMP 98.9
--- NOTE | 2018-09-14 11:04 | RAD ---
Date of service: 09/13/2018 HISTORY: Cough COMPARISON: 06/12/2018 FINDINGS: LUNGS: No active pulmonary disease. PLEURA: No significant pleural effusion identified, no pneumothorax apparent. CARDIOVASCULAR: No radiographic findings to suggest acute or significant cardiovascular disease. Atherosclerotic calcifications identified primarily aortic arch. OSSEOUS STRUCTURES: No significant abnormalities. VISUALIZED UPPER ABDOMEN: Normal. OTHER FINDINGS: None. IMPRESSION: No active disease. No significant interval change compared to the prior examination(s).
[2018-09-15 16:31] VITALS: O2SAT 94
== END 2018-09-13 20:40 | disposition home or self-care (01) ==
LOC: H.ER 16:53
DX: R11.10 Vomiting, unspecified (principal); R19.7 Diarrhea, unspecified; J45.901 Unspecified asthma with (acute) exacerbation; E78.00 Pure hypercholesterolemia, unspecified; I10 Essential (primary) hypertension; Z95.5 Presence of coronary angioplasty implant and graft
CPT/HCPCS: 71045; 80053; 81003; 83605; 83690; 83735; 84100; 84484; 85025; 85610; 85730; 86850; 86900; 87804; 93005; 94150; 94640; 96374; 99285; J2405

== ENCOUNTER 2018-12-11 19:58 | Emergency (ER) | payer MEDICARE ==
[2018-12-11 19:58] VITALS: BMI 21.7
[2018-12-11] MEDS ORDERED: Morphine 4 MG/ML VIAL IVP STA (20:53)
[2018-12-11] MEDS ORDERED: Sodium Chloride 0.9% 1,000 ML IV STA ×2 (20:54→23:08)
[2018-12-11] MEDS ORDERED: Morphine 4 MG/ML VIAL ONE (21:00)
[2018-12-11 21:57] LABS: VENOUS BLOOD GAS BASE EXCESS 0.8 mmol/L (0.0-2.0); VENOUS BLOOD GAS PCO2 62 mmHg (40-60); VENOUS BLOOD GAS PO2 17 mm/Hg (30-55); VENOUS BLOOD PH 7.28 (7.32-7.43)
[2018-12-11 22:01] LABS: BASO # 0.1 K/uL (0.0-0.2); BASO % 0.7 % (0.0-2.0); EOS # 0.4 K/uL (0.0-0.7); EOS % 4.9 % (0.0-4.0); HEMOGLOBIN 11.9 g/dL (12.0-16.0); LYMPH # 1.6 K/uL (1.0-4.3); LYMPH % 21.6 % (20.0-40.0); MEAN CELL VOLUME 91.9 fl (81.0-99.0); MEAN CORPUSCULAR HGB CONC 33.7 g/dL (33.0-37.0); MEAN PLATELET VOLUME 7.5 fl (7.2-11.7); MONO # 0.5 K/uL (0.0-0.8); MONO % 6.8 % (0.0-10.0); NEUT # 4.8 K/uL (1.8-7.0); RBC 3.86 Mil/uL (3.80-5.20); RED CELL DISTRIBUTION WIDTH 13.8 % (11.5-14.5); WHITE BLOOD COUNT 7.3 K/uL (4.8-10.8)
[2018-12-11 22:24] LABS: ALB/GLOB RATIO 1.3 (1.0-2.1)
--- NOTE | 2018-12-12 02:04 | ED PDOC ---
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 Patient reports she has been having problems with bowel movement recently because of infusion of morphine. She states she had medtronic device placed for her a week ago by Dr. Downs at [facility]. Patient denies nausea, vomiting, urinary symptoms, fever and abdominal pain currently. PMD: Venu Andrade Past Medical History Reviewed: Historical Data, Nursing Documentation, Vital Signs Vital Signs: Last Vital Signs Temp 100.9 F H 12/11/18 20:29 Pulse 94 H 12/11/18 20:29 Resp 18 12/11/18 20:29 BP 101/69 12/11/18 20:29 Pulse Ox 99 12/11/18 20:29 - Medical History PMH: Anxiety, Asthma, CAD, COPD, Fibromyalgia, HTN, Hypercholesterolemia, Migraine Denies: Chronic Kidney Disease - Surgical History Surgical History: Cholecystectomy, Coronary Stent - Family History Family History: States: Unknown Family Hx - Social History Current smoker - smoking cessation education provided: No Alcohol: None Drugs: Denies - Immunization History Hx Tetanus Toxoid Vaccination: No Hx Influenza Vaccination: No Hx Pneumococcal Vaccination: No - Home Medications Home Medications: Ambulatory Orders Medication Instructions Recorded Acetaminophen/Butalbital/Caf 1 tab PO Q6 PRN 06/01/18 [Fioricet] Albuterol Sulfate [Ventolin Hfa] 2 puff IH Q4 PRN 06/01/18 Azelastine HCl 1 spray NORAH BID PRN 06/01/18 Clonidine Pump 4.236 mcg DAILY 06/01/18 Cyclobenzaprine [Flexeril] 10 mg PO Q8 PRN 06/01/18 Esomeprazole Magnesium [Nexium] 40 mg PO DAILY 06/01/18 Morphine Pump 10.591 mg DAILY 06/01/18 Oxycodone HCl/Acetaminophen 1 tab PO Q6 PRN 06/01/18 [Percocet 10-325 mg Tablet] Amitriptyline [Elavil] 25 mg PO HS #30 tab 06/02/18 Cyanocobalamin [Vitamin B12 1000 1,000 mcg PO DAILY #7 tab 06/02/18 mcg Tab] Ergocalciferol (Vitamin D2) 50,000 unit PO QWK #4 capsule 06/02/18 [Vitamin D2] Aspirin [Aspirin Chewable] 81 mg PO DAILY 30 Days chew 06/15/18 Metoprolol Tartrate [Lopressor] 25 mg PO BID 30 Days tab 06/15/18 Rosuvastatin Calcium [Crestor] 5 mg PO HS 30 Days tab 06/15/18 Ticagrelor [Brilinta] 90 mg PO BID 30 Days tab 06/15/18 Lisinopril [Zestril] 10 mg PO DAILY 30 Days tab 06/16/18 Clindamycin [Cleocin] 300 mg PO TID #21 cap 06/28/18 Dicyclomine [Bentyl] 20 mg PO QID PRN #20 tab 09/13/18 Nitrofurantoin Macrocrystals 1 cap PO BID #14 cap 09/13/18 [Macrobid] Ondansetron ODT [Zofran ODT] 1 odt PO Q6 PRN #20 odt 09/13/18 Docusate Sodium [Dulcolax Stool 100 mg PO DAILY #12 capsule 12/12/18 Softener] Levofloxacin [Levaquin] 750 mg PO DAILY 10 Days #10 tablet 12/12/18 - Allergies Allergies/Adverse Reactions: Allergies Allergy/AdvReac Type Severity Reaction Status Date / Time No Known Allergies Allergy Verified 06/01/18 10:34 Review of Systems ROS Statement: Except As Marked, All Systems Reviewed And Found Negative Constitutional: Negative for: Fever Gastrointestinal: Negative for: Nausea, Vomiting, Abdominal Pain Musculoskeletal: Positive for: Back Pain (right sided) Physical Exam - Reviewed Nursing Documentation Reviewed: Yes Vital Signs Reviewed: Yes - Physical Exam Appears: Positive for: Well, No Acute Distress Head Exam: Positive for: ATRAUMATIC, NORMOCEPHALIC Skin: Positive for: Normal Color, Warm, Dry ENT: Positive for: Other (Pale mucous membrane) Neck: Positive for: Normal, Painless ROM, Supple Cardiovascular/Chest: Positive for: Regular Rate, Rhythm, Other (Surgical scar appears clean, healing with no bleeding or drainage. Surgical stables intact.). Negative for: Murmur Respiratory: Positive for: Normal Breath Sounds. Negative for: Respiratory Distress Gastrointestinal/Abdominal: Positive for: Normal Exam, Soft. Negative for: Tenderness Back: Positive for: Other (Right flank tenderness). Negative for: L CVA Tenderness, R CVA Tenderness Extremity: Positive for: Normal ROM Neurological/Psych: Positive for: Awake, Alert, Oriented (x3) - Laboratory Results Result Diagrams: 12/11/18 21:47 12/11/18 21:47 Lab Results: pO2 17 mm/Hg (30-55) L 12/11/18 21:52 VBG pH 7.28 (7.32-7.43) L 12/11/18 21:52 VBG pCO2 62 mmHg (40-60) H 12/11/18 21:52 VBG HCO3 23.4 mmol/L 12/11/18 21:52 VBG Total CO2 31.0 mmol/L (22-28) H 12/11/18 21:52 VBG O2 Sat (Calc) 31.4 % (40-65) L 12/11/18 21:52 VBG Base Excess 0.8 mmol/L (0.0-2.0) 12/11/18 21:52 VBG Potassium 3.9 mmol/L (3.6-5.2) 12/11/18 21:52 Sodium 136.0 mmol/L (132-148) 12/11/18 21:52 Chloride 105.0 mmol/L (98-107) 12/11/18 21:52 Glucose 86 mg/dL (65-105) 12/11/18 21:52 Lactate 1.1 mmol/L (0.7-2.1) 12/11/18 21:52 FiO2 21.0 % 12/11/18 21:52 Total Bilirubin 0.3 mg/dl (0.2-1.3) 12/11/18 21:47 AST 21 U/L (14-36) 12/11/18 21:47 ALT 19 U/L (9-52) 12/11/18 21:47 Alkaline Phosphatase 86 U/L (38-126) 12/11/18 21:47 Total Protein 7.0 G/DL (6.3-8.2) 12/11/18 21:47 Albumin 4.0 g/dL (3.5-5.0) 12/11/18 21:47 Globulin 3.0 gm/dL (2.2-3.9) 12/11/18 21:47 Albumin/Globulin Ratio 1.3 (1.0-2.1) 12/11/18 21:47 Lipase 28 U/L (23-300) 12/11/18 21:47 - ECG O2 Sat by Pulse Oximetry: 99 (RA) Pulse Ox Interpretation: Normal Medical Decision Making Medical Decision Making: Time: 2052 A/P: 63 years old female presents with flank pain --Patient with recent surgery, will evaluate for problems with medtronic hardware, pyelonephritis, kidney stones and constipation --Will obtain labs and CT abdomen & pelvis --Will give toradol and enulose 0025 CT Abdomen/Pelvis Findings: Chest: The visualized lung bases demonstrates small bilateral pleural effusions and lower lobe atelectasis. Abdomen: The kidneys are normal in size bilaterally. There is no evidence of hydronephrosis or nephrolithiasis. The liver, spleen, pancreas, and adrenal glands are unremarkable. The aorta demonstrates moderate atherosclerotic changes, with maximal diameter of 2.6 x 2.7 cm. There is no abdominal lymphadenopathy or ascites. Pelvis: There is moderately severe constipation demonstrated. The colon does not demonstrate any obstructive changes. The appendix is normal. The urinary bladder is within normal limits. There is no pelvic lymphadenopathy or ascites. The other pelvic structures appear unremarkable. Medtronic device is seen in the right anterior abdominal wall. Stimulator wires are seen within the spinal canal, terminating at the level of T9. Bones: There are no suspicious osseous abnormalities seen. Right hip arthroplasty is in place. Impression: 1. Moderately severe constipation. No obstructive or inflammatory bowel changes. 2. No evidence of hydronephrosis or nephrolithiasis. 3. Small bilateral lower lobe infiltrate/atelectasis and pleural effusions. 4. Moderate atherosclerosis of the abdominal aorta without evidence of aneurysm. 5. Stimulator device in place as described. 0200 After toradol patient fell promptly to sleep Family states that she is very difficult to rouse because of chronic fatigue syndrome, asking if we can keep her till the morning 0600 Patient is now awake and alert, states she no longer has back pain and wishes to go home. Patient has UTI on study, will treat for possibly ascending UTI given initial fever, although not septic given no white count, normal lactate Will also prescribe dulcolax Strongly advised patient that she should followup with her PMD Dr. Andrade on Friday or Friday Scribe Attestation: Documented by Jessica Landry, acting as a scribe for Tristian Asher MD. Provider Scribe Attestation: All medical record entries made by the Scribe were at my direction and personally dictated by me. I have reviewed the chart and agree that the record accurately reflects my personal performance of the history, physical exam, medical decision making, and the department course for this patient. I have also personally directed, reviewed, and agree with the discharge instructions and disposition. Disposition - Clinical Impression Clinical Impression: UTI (urinary tract infection), Constipation - Patient ED Disposition Is Patient to be Admitted: No Discussed With : jorge - Disposition Referrals: Venu Andrade MD [Staff Provider] - Disposition: Routine/Home Disposition Time: 06:39 Condition: IMPROVED Prescriptions: Docusate Sodium [Dulcolax Stool Softener] 100 mg PO DAILY #12 capsule Levofloxacin [Levaquin] 750 mg PO DAILY 10 Days #10 tablet Instructions: Urinary Tract Infection, Adult (DC), Constipation in Adults Forms: [employer] (Turkmen)
[2018-12-12 03:03] LABS: SQUAMOUS EPITHIAL 8 /hpf (0-5); URINE BACTERIA RARE (<OCC); URINE BILIRUBIN NEGATIVE (NEGATIVE); URINE BLOOD NEGATIVE (NEGATIVE); URINE CLARITY CLOUDY (Clear); URINE COLOR AMBER (YELLOW); URINE GLUCOSE (UA) NEG (NEGATIVE); URINE HYALINE CAST 0-2 /hpf (0-2); URINE LEUKOCYTE ESTERASE NEG Leu/uL (Negative); URINE PROTEIN 30 mg/dL (NEGATIVE)
[2018-12-12 07:29] VITALS: RESP 18
[2018-12-12 08:30] VITALS: BP 132/61; PULSE 79; TEMP 98.9; O2SAT 95
--- NOTE | 2018-12-12 17:06 | RAD ---
Date of service: 12/11/2018 HISTORY: Back pain COMPARISON: Comparison chest 09/13/2018. TECHNIQUE: 1 view obtained. FINDINGS: LUNGS: Poor inspiration with low lung volumes, crowded bronchovascular markings and mild bibasilar atelectasis. PLEURA: No significant pleural effusion identified, no pneumothorax apparent. CARDIOVASCULAR: Mild aortic atherosclerotic calcification present. Borderline-mild cardiomegaly OSSEOUS STRUCTURES: No significant abnormalities. VISUALIZED UPPER ABDOMEN: Normal. OTHER FINDINGS: None. IMPRESSION: Poor inspiration with low lung volumes, crowded bronchovascular markings and mild bibasilar atelectasis.
--- NOTE | 2018-12-12 17:23 | CT ---
Date of service: 12/11/2018 PROCEDURE: CT Abdomen and Pelvis without intravenous contrast HISTORY: back pain, recent medtronic device placement COMPARISON: The neck TECHNIQUE: Technique. Contrast dose: Radiation dose: Total exam DLP = 0.0 mGy-cm. This CT exam was performed using one or more of the following dose reduction techniques: Automated exposure control, adjustment of the mA and/or kV according to patient size, and/or use of iterative reconstruction technique. FINDINGS: LOWER THORAX: Mild bibasilar atelectasis and or developing infiltrates. Cardiomegaly. No significant pericardial effusion. Small hiatal hernia. LIVER: Liver exhibits normal size and attenuation pattern without mass collection or calcification. GALLBLADDER AND BILE DUCTS: Cholecystectomy. PANCREAS: Pancreas is atrophic and fatty replaced. No obvious pancreatic mass collection or calcification. SPLEEN: Spleen exhibits normal size and attenuation pattern without mass collection or calcification. ADRENALS: There appears to be a left adrenal nodule which measures approximately 16.6 mm. Follow-up nonemergent noncontrast MRI of the adrenal glands could be performed for further evaluation. KIDNEYS AND URETERS: Unremarkable. No hydronephrosis. No solid mass. VASCULATURE: There is slight dilatation of the infrarenal abdominal aorta which measures approximately 3.1 cm in greatest diameter. Aortic atherosclerotic calcification or mural plaque present. BOWEL: Evaluation of the bowel is somewhat limited due to the lack of oral contrast material. The stomach is partially distended with food debris and air. Visualized loops of small bowel exhibit normal contour and caliber. No evidence of acute mechanical small bowel obstruction. There is a moderately large amount of stool within the large bowel consistent with fecal retention/constipation. APPENDIX: Appendix is not positively identified however no obvious inflammatory changes right lower quadrant of the abdomen. PERITONEUM: Unremarkable. No free fluid. No free air. Small fat containing umbilical hernia. LYMPH NODES: Unremarkable. No enlarged lymph nodes. BLADDER: Urinary bladder is partially obscured by streak and beam hardening artifact arising from right total hip replacement. No definitive evidence of intraluminal urinary bladder calculi. REPRODUCTIVE: Apparent hysterectomy. BONES: Minor multilevel degenerative spondylosis of the lower thoracic and lumbar spine. In situ pain stimulator with battery pack in the left anterior mid anterior subcutaneous tissues with electrode that extends circumferentially posteriorly within the right flank and enters the spinal canal just to the left of midline at approximately the upper L1 level and extends superiorly over a distance to approximately lower T9 level. Right total hip replacement. OTHER FINDINGS: None. IMPRESSION: Findings consistent with constipation. No evidence of acute mechanical bowel obstruction. Mild bibasilar atelectasis and/or infiltrates. Mild dilatation of the infrarenal abdominal aorta as detailed above.
--- NOTE | 2018-12-12 18:41 | CARD ---
APPROVED REPORT Date of service: 12/11/2018 EKG Measurement Heart [id number] <Conclusion> Normal sinus rhythm Normal ECG
== END 2018-12-12 08:28 | disposition home or self-care (01) ==
LOC: H.ER 19:58
DX: N39.0 Urinary tract infection, site not specified (principal); K59.00 Constipation, unspecified
CPT/HCPCS: 71045; 74176; 80053; 81003; 82803; 83690; 85025; 86850; 86900; 87040; 87086; 93005; 96374; 99285; J1885; J7030

== ENCOUNTER 2018-12-17 15:00 | Inpatient (IN) | payer MEDICARE ==
[2018-12-17] MEDS ORDERED: Albuterol-Ipratrop 3 mg / 0.5 (3 ml) UD INH STA (15:44)
[2018-12-17] MEDS ORDERED: Albuterol-Ipratrop 3 mg / 0.5 (3 ml) UD ONE (15:52)
[2018-12-17 16:12] LABS: BASO % 0.9 % (0.0-2.0); EOS # 0.1 K/uL (0.0-0.7); EOS % 4.6 % (0.0-4.0); HEMOGLOBIN 11.1 g/dL (12.0-16.0); LYMPH # 0.8 K/uL (1.0-4.3); LYMPH % 26.9 % (20.0-40.0); MEAN CELL VOLUME 91.4 fl (81.0-99.0); MEAN CORPUSCULAR HEMOGLOBIN 29.7 pg (27.0-31.0); MEAN CORPUSCULAR HGB CONC 32.5 g/dL (33.0-37.0); MEAN PLATELET VOLUME 7.4 fl (7.2-11.7); MONO # 0.2 K/uL (0.0-0.8); MONO % 7.2 % (0.0-10.0); NEUT # 1.7 K/uL (1.8-7.0); NEUT % 60.4 % (50.0-75.0); NRBC % 0.2 % (0.0-0.0); RBC 3.73 Mil/uL (3.80-5.20); WHITE BLOOD COUNT 2.8 K/uL (4.8-10.8)
[2018-12-17 16:32] LABS: B-TYPE NATRIURETIC PEPTIDE 554 pg/ml (0-900)
[2018-12-17 16:47] LABS: ALB/GLOB RATIO 1.2 (1.0-2.1); ALBUMIN 3.6 g/dL (3.5-5.0); ALT/SGPT 23 U/L (9-52); AST/SGOT 34 U/L (14-36); BLOOD UREA NITROGEN 10 mg/dl (7-17); CALCIUM 8.4 mg/dL (8.4-10.2); GFR NON-AFRICAN AMERICAN > 60
--- NOTE | 2018-12-17 16:52 | RAD ---
Date of service: 12/17/2018 HISTORY: Cough COMPARISON: 12/11/2018. TECHNIQUE: Chest PA and lateral FINDINGS: LINES AND TUBES: None. LUNG AND PLEURA: The lungs are hyperinflated and there is peribronchial thickening with chronic changes in both lungs. No pleural effusion or pneumothorax. HEART AND MEDIASTINUM: The heart is not enlarged. No aortic atherosclerotic calcifications present. The hilar and mediastinal contours are within normal limits. SKELETAL STRUCTURES: The bony structures are within normal limits for the patient's age. VISUALIZED UPPER ABDOMEN: Normal. OTHER FINDINGS: None. IMPRESSION: No active pulmonary disease. COPD.
--- NOTE | 2018-12-17 17:12 | ED PDOC ---
HPI: SOB/CHF/COPD Time Seen by Provider: 12/17/18 15:27 Chief Complaint (Nursing): Shortness Of Breath Chief Complaint (Provider): Shortness of breath History Per: Patient History/Exam Limitations: no limitations Onset/Duration Of Symptoms: Hrs (today) Current Symptoms Are (Timing): Still Present Additional Complaint(s): Jesús Alex is a 63 year old female, with a past medical history of Fibromyalgia, rheumatoid arthritis, COPD, [place] in July with stent placement, who presents to the emergency department complaining of shortness of breath onset today. Patient has a long history of smoking multiple packs per day since the age of 11. She quit smoking after her heart attack in July but began again x2 weeks ago and quit again x2 days ago. She denies any fever, chills, chest pain, nausea, vomit, headache, dizziness, numbness, tingling, weakness, diaphoresis or other medical complaints. 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 Past Medical History Reviewed: Historical Data, Nursing Documentation, Vital Signs Vital Signs: Last Vital Signs Temp 99.4 F 12/17/18 15:02 Pulse 80 12/17/18 16:52 Resp 21 12/17/18 16:52 BP 151/81 H 12/17/18 16:52 Pulse Ox 99 12/17/18 16:52 - Medical History PMH: Anxiety, Asthma, CAD, COPD, Fibromyalgia, HTN, Hypercholesterolemia, Migraine Denies: Chronic Kidney Disease - Surgical History Surgical History: Cholecystectomy, Coronary Stent - Family History Family History: States: Unknown Family Hx - Social History Current smoker - smoking cessation education provided: Yes Alcohol: None Drugs: Denies - Immunization History Hx Tetanus Toxoid Vaccination: No Hx Influenza Vaccination: No Hx Pneumococcal Vaccination: No - Home Medications Home Medications: Ambulatory Orders Medication Instructions Recorded Acetaminophen/Butalbital/Caf 1 tab PO Q6 PRN 06/01/18 [Fioricet] Albuterol Sulfate [Ventolin Hfa] 2 puff IH Q4 PRN 06/01/18 Clonidine Pump 4.236 mcg DAILY 06/01/18 Esomeprazole Magnesium [Nexium] 40 mg PO DAILY 06/01/18 Morphine Pump 10.591 mg DAILY 06/01/18 Aspirin [Aspirin Chewable] 81 mg PO DAILY 30 Days chew 10/01/18 Ticagrelor [Brilinta] 90 mg PO BID 30 Days tab 06/15/18 Lisinopril [Zestril] 10 mg PO DAILY 30 Days tab 06/16/18 Levofloxacin [Levaquin] 750 mg PO DAILY 10 Days #10 tablet 12/12/18 Albuterol/Ipratropium [Duoneb 3 3 ml IH Q6 PRN 12/17/18 mg/0.5 mg (3 ml) UD] Metoprolol Tartrate [Lopressor] 25 mg PO DAILY 12/17/18 Pregabalin [Lyrica] 75 mg PO Q8 12/17/18 Rosuvastatin Calcium [Crestor] 40 mg PO DAILY 12/17/18 - Allergies Allergies/Adverse Reactions: Allergies Allergy/AdvReac Type Severity Reaction Status Date / Time "hospital tape" Allergy RASH Uncoded 12/17/18 15:02 Review of Systems ROS Statement: Except As Marked, All Systems Reviewed And Found Negative Constitutional: Negative for: Fever, Chills, Sweats Cardiovascular: Negative for: Chest Pain Respiratory: Positive for: Shortness of Breath Gastrointestinal: Negative for: Nausea, Vomiting Neurological: Negative for: Weakness, Numbness (tingling), Headache, Dizziness Physical Exam - Reviewed Nursing Documentation Reviewed: Yes Vital Signs Reviewed: Yes - Physical Exam Appears: Positive for: No Acute Distress Head Exam: Positive for: ATRAUMATIC, NORMAL INSPECTION, NORMOCEPHALIC Skin: Positive for: Normal Color, Warm, Dry Eye Exam: Positive for: Normal appearance, EOMI, PERRL Neck: Positive for: Normal, Painless ROM, Supple Cardiovascular/Chest: Positive for: Regular Rate, Rhythm. Negative for: Murmur Respiratory: Positive for: Crackles, Wheezing Gastrointestinal/Abdominal: Positive for: Normal Exam, Soft, Other (healing incision on right abdomen over pump, no erythema, drainage or fluctuance.). Negative for: Tenderness Back: Positive for: Normal Inspection. Negative for: L CVA Tenderness, R CVA Tenderness, Vertebral Tenderness Extremity: Positive for: Normal ROM (upper and lower extremities). Negative for: Deformity, Swelling Neurological/Psych: Positive for: Awake, Alert, Normal Tone, Oriented. Negative for: Motor/Sensory Deficits - Laboratory Results Result Diagrams: 12/20/18 05:30 12/20/18 05:30 Lab Results: NT-Pro-B Natriuret Pep 554 pg/ml (0-900) 12/17/18 15:55 Total Bilirubin 0.3 mg/dl (0.2-1.3) 12/17/18 15:55 AST 34 U/L (14-36) 12/17/18 15:55 ALT 23 U/L (9-52) 12/17/18 15:55 Alkaline Phosphatase 63 U/L (38-126) 12/17/18 15:55 Total Protein 6.7 G/DL (6.3-8.2) 12/17/18 15:55 Albumin 3.6 g/dL (3.5-5.0) 12/17/18 15:55 Globulin 3.1 gm/dL (2.2-3.9) 12/17/18 15:55 Albumin/Globulin Ratio 1.2 (1.0-2.1) 12/17/18 15:55 - ECG O2 Sat by Pulse Oximetry: 99 (RA) Pulse Ox Interpretation: Normal - Critical Care Total Time (In Min): 30 Documented Critical Care: Time excludes all time spent performint seperately billable procedures Medical Decision Making Medical Decision Making: Time: 15:27 Initial Impression: Work up for shortness of breath/COPD exacerbation. R/o infectious process. Duonebs, SOLU-medrol, CXR and reassess patient. Initial Plan: --EKG --BNP --CMP --CBC w/ differential --Chest two views (PA/LAT) [RAD] --Duoneb 3 ml INH --SOLU-medrol 125 mg IVP --Reevaluation 15:40 -O2 sats on upper 80s when not on nasal cannula. 96%-98% on 2L NC. 16:49 CXR FINDINGS: LINES AND TUBES: None. LUNG AND PLEURA: The lungs are hyperinflated and there is peribronchial thickening with chronic changes in both lungs. No pleural effusion or pneumothorax. HEART AND MEDIASTINUM: The heart is not enlarged. No aortic atherosclerotic calcifications present. The hilar and mediastinal contours are within normal limits. SKELETAL STRUCTURES: The bony structures are within normal limits for the patient's age. VISUALIZED UPPER ABDOMEN: Normal. OTHER FINDINGS: None. IMPRESSION: No active pulmonary disease. COPD. 17:30 Patient with bilateral infiltrates on CXR. Patient was seen by Dr. Abdi, technical sales director. Patient to be admitted to hospitalist. Will wait on antibiotics until cultures are back. Vitals are normal, no elevation of WBC. Scribe Attestation: Documented by Praveen Adam, acting as a scribe Ramon Vu MD Provider Scribe Attestation: All medical record entries made by the Scribe were at my direction and personally dictated by me. I have reviewed the chart and agree that the record accurately reflects my personal performance of the history, physical exam, medical decision making, and the department course for this patient. I have also personally directed, reviewed, and agree with the discharge instructions and disposition. Disposition - Clinical Impression Clinical Impression: COPD (chronic obstructive pulmonary disease) - Disposition Disposition Time: 17:30 Condition: FAIR
--- NOTE | 2018-12-17 17:19 | CP.PCM.CON ---
History of Present Illness - History of Present Illness History of Present Illness: Nghia Pradhan, PGY-1, Cardiology Consult Note for Dr. Abdi 63 year old female with past medical history of CAD, hypertension, fibromyalgia, RA, migrane, HLD presents with shortness of breath and nonproductive cough for 3 days. Patient recently had PCI in 05/2018 where RCA stent was placed. Patient has been stable since that time. However, patient recently started smoking again and reported nasal congestion and postnasal drip attributed to a cold two weeks ago. Patient reports that cold-like symptoms resolved but 3 days ago, shortness of breath and nonproductive cough started. Patient was sitting down while the symptoms started. Patient reports shortness of breath and cough are worse with ambulation and nebulizers have not helped. Patient is currently not on diuretic therapy. Patient denies chest pain but reports nausea. PMH: as stated above PSH: medtronic pump, hip replacement FMHx: denies SHx: smokes for 50 years (2PPD), denies alcohol and recreational drug use Allergies: hospital tape PMD: Dr. Ventura Medications: aspirin, lisinopril, lopressor, brilinta, rosuvastatin, buspirone Last cardiac catheterization: May 2018: RCA stent placed Stress test: 10 years ago was unremarkable Review of Systems - Review of Systems Review of Systems: except as mentioned in HPI Past Patient History - Infectious Disease Hx of Infectious Diseases: None - Past Medical History & Family History Past Medical History?: Yes - Past Social History Smoking Status: Former Smoker - CARDIAC Hx Hypercholesterolemia: Yes Hx Hypertension: Yes - PULMONARY Hx Asthma: Yes Hx Chronic Obstructive Pulmonary Disease (COPD): Yes - NEUROLOGICAL Hx Migraine: Yes - HEENT Hx HEENT Problems: No - RENAL Hx Chronic Kidney Disease: No - ENDOCRINE/METABOLIC Hx Endocrine Disorders: No - HEMATOLOGICAL/ONCOLOGICAL Hx Blood Disorders: No - INTEGUMENTARY Hx Dermatological Problems: No - MUSCULOSKELETAL/RHEUMATOLOGICAL Hx Musculoskeletal Disorders: Yes Hx Falls: No Other/Comment: fibromyalgia - GASTROINTESTINAL Hx Gastrointestinal Disorders: No - GENITOURINARY/GYNECOLOGICAL Hx Genitourinary Disorders: No - PSYCHIATRIC Hx Anxiety: Yes - SURGICAL HISTORY Hx Cholecystectomy: Yes Hx Coronary Stent: Yes - ANESTHESIA Hx Anesthesia: Yes Hx Anesthesia Reactions: No Hx Malignant Hyperthermia: No Meds Allergies/Adverse Reactions: Allergies Allergy/AdvReac Type Severity Reaction Status Date / Time "hospital tape" Allergy RASH Uncoded 12/17/18 15:02 Physical Exam - Constitutional Appears: Well, Non-toxic, No Acute Distress - Head Exam Head Exam: ATRAUMATIC, NORMAL INSPECTION, NORMOCEPHALIC - Eye Exam Eye Exam: EOMI, PERRL - ENT Exam ENT Exam: Mucous Membranes Moist - Respiratory Exam Respiratory Exam: Wheezes, NORMAL BREATHING PATTERN Additional comments: distant breath sounds - Cardiovascular Exam Cardiovascular Exam: REGULAR RHYTHM, RRR, +S1, +S2 - GI/Abdominal Exam GI & Abdominal Exam: Normal Bowel Sounds, Soft. absent: Tenderness - Extremities Exam Extremities exam: Positive for: full ROM, normal inspection. Negative for: pedal edema - Neurological Exam Neurological exam: Alert, CN II-XII Intact, Oriented x3 - Skin Skin Exam: Dry, Intact Results - Vital Signs Recent Vital Signs: Last Vital Signs Temp 99.4 F 12/17/18 15:02 Pulse 80 12/17/18 16:52 Resp 21 12/17/18 16:52 BP 151/81 H 12/17/18 16:52 Pulse Ox 99 12/17/18 17:12 - Labs Result Diagrams: 12/17/18 15:55 12/17/18 15:55 Labs: Laboratory Results - last 24 hr 12/17/18 12/17/18 15:55 15:55 WBC 2.8 L D RBC 3.73 L Hgb 11.1 L Hct 34.1 MCV 91.4 MCH 29.7 MCHC 32.5 L RDW 14.0 Plt Count 186 MPV 7.4 Neut % (Auto) 60.4 Lymph % (Auto) 26.9 [place] % (Auto) 7.2 Eos % (Auto) 4.6 H Baso % (Auto) 0.9 Neut # (Auto) 1.7 L Lymph # (Auto) 0.8 L [place] # (Auto) 0.2 Eos # (Auto) 0.1 Baso # (Auto) 0.0 Sodium 138 Potassium 3.9 Chloride 100 Carbon Dioxide 31 H Anion Gap 11 BUN 10 Creatinine 0.7 Est GFR ( Amer) > 60 Est GFR (Non-Af Amer) > 60 Random Glucose 98 Calcium 8.4 Total Bilirubin 0.3 AST 34 ALT 23 Alkaline Phosphatase 63 NT-Pro-B Natriuret Pep 554 Total Protein 6.7 Albumin 3.6 Globulin 3.1 Albumin/Globulin Ratio 1.2 Assessment & Plan (1) COPD exacerbation Assessment and Plan: CXR: shows no acute pulmonary disease Will follow up BNP Given solumedrol 125 mg IV and duonebs in ED Started on solumedrol 40 mg IV daily, duonebs, and pulmicort. Status: Acute (2) CAD (coronary artery disease) Assessment and Plan: Will follow up EKG Will order BNP to evaluate for cause of dyspnea Will obtain tropx3 to evaluate for acute [place] Will start aspirin, brilinta, rosuvastatin, lopressor, and zestril. Status: Acute (3) Hyperlipidemia Assessment and Plan: Follow up lipid panel. Continue with rosuvastatin. Status: Acute (4) HTN (hypertension) Assessment and Plan: Continue with lopressor and zestril Status: Acute - Date & Time Date: 12/17/18 Time: 17:19
[2018-12-17] MEDS ORDERED: Albuterol-Ipratrop 3 mg / 0.5 (3 ml) UD INH PRN (17:22)
[2018-12-17] MEDS ORDERED: Sodium Chloride 3% for Inhalation 4 ML VIAL.NEB IH PRN (17:27)
[2018-12-17 18:29] LABS: HDL CHOLESTEROL 37 MG/DL (30-70)
[2018-12-17] MEDS ORDERED: Patient's Own Med (Oxycodone Hcl/Acetaminophen [Percocet 10-325 Mg Tablet] 1 TAB) PO PRN (18:35)
[2018-12-17] MEDS ORDERED: Albuterol-Ipratrop 3 mg / 0.5 (3 ml) UD IH PRN ×2 (18:35→18:48)
[2018-12-17] MEDS ORDERED: Albuterol HFA 90 mcg/actuation (8 g) IH PRN (18:35)
[2018-12-17 18:39] LABS: LDL CHOLESTEROL 40 mg/dL (0-129)
[2018-12-17 18:42] LABS: B-TYPE NATRIURETIC PEPTIDE 562 pg/ml (0-900)
[2018-12-17] MEDS: Apap-Butalbital-Caffeine 325-50-40mg Tab PO PRN (18:53)
--- NOTE | 2018-12-17 18:58 | CP.PCM.HP ---
<Kathi Kenney - Last Filed: 12/17/18 22:44> History of Present Illness - History of Present Illness History of Present Illness: 63 yo female with history of HTN, COPD, fibromyalgia, migraines, chronic fatigue and [place] 07/[place] s/p stent admitted to [facility] for evaluation and treatment of COPD exacerbation. Patient reports few days hx of worsening dry cough, congestion and dyspnea. Patient reports significant limitations for her daily activities due to dyspnea, unable to walk for a min. + chest tightness, Blurred vision, dizziness, weakness and sick contact at home, denies any f/c/n/v, abdominal pain, or urinary symptoms. Patient is a heavy smoker who is trying to quit smoking. Patient has a pain pump (Morphine + Clonidine) that is followed by Dr. Downs (her pain physician). PMH: HTN, COPD, fibromyalgia, migraines, chronic fatigue and [place] 07/2018 s/p stent PSH: Hip replacement last year Allg: NKDA FH: Mother had HTN and from Heart attack in her 40's; Social Hx: Smokes 1/2 pack per day for >50years. Denies illicit drug use and alcohol use. PMD: Dr. Andrade Pain management: Dr. Downs. ER Course: VS: 99.4 tmp, HR 80, RR 21, 151/81. Spo2 below 92 on RA CBC: 2.8>11.1/34.1<186 Procalcitonin low CMP: Co2 31 and HBA1C 6.6, Normal lipids trop x 1 negative CXR: no acute pulm disease, COPD EKG: NSR, Low voltage QRS Negative flu S/p Methylprd 125 S/p Duoneb x1 Present on Admission - Present on Admission Any Indicators Present on Admission: No Review of Systems - Constitutional Constitutional: absent: Daytime Sleepiness - EENT Eyes: Blurred Vision Ears: absent: Ear Discharge Nose/Mouth/Throat: Nasal Congestion - Breasts Breasts: absent: Skin Changes - Cardiovascular Cardiovascular: absent: Chest Pain, Syncope - Respiratory Respiratory: Cough, Dyspnea, Dyspnea on Exertion, Wheezing, Chest Congestion. absent: Hemoptysis - Gastrointestinal Gastrointestinal: absent: Abdominal Pain - Genitourinary Genitourinary: absent: Change in Urinary Stream - Musculoskeletal Musculoskeletal: absent: Abnormal Gait - Integumentary Integumentary: absent: Bleeding Lesions - Neurological Neurological: Dizziness. absent: Abnormal Gait, Confusion, Numbness, Syncope, Vertigo - Psychiatric Psychiatric: absent: Anxiety - Endocrine Endocrine: absent: Change in Body Appearance - Hematologic/Lymphatic Hematologic: absent: Easy Bleeding Past Patient History - Infectious Disease Hx of Infectious Diseases: None - Past Medical History & Family History Past Medical History?: Yes - Past Social History Alcohol: None Drugs: Denies - CARDIAC Hx Hypercholesterolemia: Yes Hx Hypertension: Yes - PULMONARY Hx Asthma: Yes Hx Chronic Obstructive Pulmonary Disease (COPD): Yes - NEUROLOGICAL Hx Migraine: Yes - HEENT Hx HEENT Problems: No - RENAL Hx Chronic Kidney Disease: No - ENDOCRINE/METABOLIC Hx Endocrine Disorders: No - HEMATOLOGICAL/ONCOLOGICAL Hx Blood Disorders: No - INTEGUMENTARY Hx Dermatological Problems: No - MUSCULOSKELETAL/RHEUMATOLOGICAL Hx Musculoskeletal Disorders: Yes Hx Falls: No Other/Comment: fibromyalgia - GASTROINTESTINAL Hx Gastrointestinal Disorders: No - GENITOURINARY/GYNECOLOGICAL Hx Genitourinary Disorders: No - PSYCHIATRIC Hx Anxiety: Yes - SURGICAL HISTORY Hx Cholecystectomy: Yes Hx Coronary Stent: Yes - ANESTHESIA Hx Anesthesia: Yes Hx Anesthesia Reactions: No Hx Malignant Hyperthermia: No Meds Allergies/Adverse Reactions: Allergies Allergy/AdvReac Type Severity Reaction Status Date / Time "hospital tape" Allergy RASH Uncoded 12/17/18 15:02 Physical Exam - Constitutional Appears: No Acute Distress - Head Exam Head Exam: ATRAUMATIC, NORMAL INSPECTION, NORMOCEPHALIC - Eye Exam Eye Exam: EOMI, Normal appearance, PERRL Pupil Exam: NORMAL ACCOMODATION - ENT Exam ENT Exam: Mucous Membranes Moist - Neck Exam Neck exam: Positive for: Normal Inspection - Respiratory Exam Respiratory Exam: Prolonged Expiratory Phase, Rhonchi, Wheezes (and + Crackles ). absent: Accessory Muscle Use, Decreased Breath Sounds - Cardiovascular Exam Cardiovascular Exam: REGULAR RHYTHM, +S1, +S2 - GI/Abdominal Exam GI & Abdominal Exam: Normal Bowel Sounds, Soft Additional comments: R mid abdomen pain pump inserted/Internally: No erythema, swelling, discharge or tenderness - Extremities Exam Extremities exam: Positive for: normal capillary refill, normal inspection, pedal pulses present. Negative for: tenderness - Back Exam Back exam: NORMAL INSPECTION. absent: CVA tenderness (L), CVA tenderness (R) - Neurological Exam Neurological exam: Alert, CN II-XII Intact, Oriented x3 - Psychiatric Exam Psychiatric exam: Normal Affect - Skin Skin Exam: Dry, Intact, Normal Color, Warm Results - Vital Signs Recent Vital Signs: Last Vital Signs Temp 99.4 F 12/17/18 15:02 Pulse 77 12/17/18 18:00 Resp 16 12/17/18 18:00 BP 148/70 12/17/18 18:00 Pulse Ox 97 12/17/18 18:00 - Labs Result Diagrams: 12/17/18 15:55 12/17/18 15:55 Labs: Laboratory Results - last 24 hr 12/17/18 12/17/18 12/17/18 15:55 15:55 17:50 WBC 2.8 L D RBC 3.73 L Hgb 11.1 L Hct 34.1 MCV 91.4 MCH 29.7 MCHC 32.5 L RDW 14.0 Plt Count 186 MPV 7.4 Neut % (Auto) 60.4 Lymph % (Auto) 26.9 [place] % (Auto) 7.2 Eos % (Auto) 4.6 H Baso % (Auto) 0.9 Neut # (Auto) 1.7 L Lymph # (Auto) 0.8 L [place] # (Auto) 0.2 Eos # (Auto) 0.1 Baso # (Auto) 0.0 Sodium 138 Potassium 3.9 Chloride 100 Carbon Dioxide 31 H Anion Gap 11 BUN 10 Creatinine 0.7 Est GFR ( Amer) > 60 Est GFR (Non-Af Amer) > 60 Random Glucose 98 Calcium 8.4 Total Bilirubin 0.3 AST 34 ALT 23 Alkaline Phosphatase 63 Troponin I < 0.0120 NT-Pro-B Natriuret Pep 554 562 Total Protein 6.7 Albumin 3.6 Globulin 3.1 Albumin/Globulin Ratio 1.2 Triglycerides 143 Cholesterol 98 LDL Cholesterol Direct 40 HDL Cholesterol 37 Assessment & Plan - Assessment and Plan (Free Text) Assessment: A/P: 63 yo female with history of HTN, COPD, fibromyalgia, migraines, chronic fatigue and [place] 07/2018 s/p stent admitted to [facility] for evaluation and treatment of COPD exacerbation. COPD Exacerbation - Acute - CXR reviewed - START GILBERT Duoneb Q4H and PRN Q2H - START MethylPred 60mg Q8H - START Azithromycin after sputum Cx obtained - START MuCinex - C/W Pulmicort as ordered - Low Pro-calcitonin Recent Hx of [place] and s/p Stent - Consult Dr. Abdi - C/w ASA, Lipitor, Brilinta, Metoprolol 25 PO daily HTN - Chronic, Controlled - C/w Home meds as ordered/ Zestril 10mg daily Elevated HBA1C/New onset of DM-II - A1C 6.6 today with normal lipids - Accuchecks/ACHS - Sliding scale and hypoglycemic protocol - Consider discharge on metformin Chronic pain/fibromyalgia - C/w pain management as ordered & Lyrica - C/w Pain Pump, Morphine and CLonidine DVT PPx - Lovenox 40mg SC daily Case discussed and patient seen with Dr. Kwon <Laura Kwon - Last Filed: 12/24/18 09:21> Results - Vital Signs Recent Vital Signs: Last Vital Signs Temp 97.5 F L 12/21/18 08:13 Pulse 70 12/21/18 09:04 Resp 19 12/21/18 08:13 BP 154/75 H 12/21/18 09:04 Pulse Ox 94 L 12/21/18 08:13 - Labs Result Diagrams: 12/21/18 05:25 12/21/18 05:25 Attending/Attestation - Attestation I have personally seen and examined this patient.: Yes I have fully participated in the care of the patient.: Yes I have reviewed all pertinent clinical information: Yes Notes (Text): 12/24/18 09:21 Agree with findings and plan as above
[2018-12-17] MEDS ORDERED: Albuterol-Ipratrop 3 mg / 0.5 (3 ml) UD IH SCH (20:00)
[2018-12-17] MEDS: guaiFENesin-DM 600-30 mg ER Tab PO SCH ×2 (20:20→23:21)
[2018-12-17] MEDS ORDERED: Oxycodone/Acetaminophen 5/325 mg Tab ONE (21:53)
[2018-12-17] MEDS ORDERED: Glucagon Recombinant 1 mg Inj IM PRN (22:40)
[2018-12-17] MEDS ORDERED: Dextrose 50% SYRINGE Inj (50 ml) IV PRN (22:40)
[2018-12-17] MEDS: Budesonide 0.5 mg/2 ml Inhal Susp UD IH SCH (23:20)
[2018-12-17] MEDS: Albuterol-Ipratrop 3 mg / 0.5 (3 ml) UD INH SCH (23:20)
[2018-12-18] MEDS: Albuterol-Ipratrop 3 mg / 0.5 (3 ml) UD INH SCH ×7 (00:50→23:24)
[2018-12-18] MEDS ORDERED: methylPREDNISolone 60 MG in Sodium Chloride 0.9% 50 ML IVPB SCH (01:00)
[2018-12-18] MEDS: Oxycodone/Acetaminophen 5/325 mg Tab PO PRN ×2 (05:53→13:10)
--- NOTE | 2018-12-18 07:27 | CP.PCM.PN ---
Subjective - Date & Time of Evaluation Date of Evaluation: 12/18/18 Time of Evaluation: 07:25 - Subjective Subjective: Nghia Pradhan, PGY-1, Cardiology Progress Note for Dr. Abdi Patient seen and evaluated at bedside. Patient had no acute overnight events. Patient reports improvement in shortness of breath with nebulizer treatment. In addition, patient reports chest soreness with coughing. Objective - Vital Signs/Intake and Output Vital Signs (last 24 hours): Temp Pulse Resp BP Pulse Ox 97.7 F 95 H 19 170/91 H 936 H 12/18/18 00:17 12/18/18 00:17 12/18/18 00:17 12/18/18 00:17 12/18/18 00:17 - Medications Medications: Current Medications Acetaminophen (Tylenol 325mg Tab) 650 mg PO Q6 PRN PRN Reason: Headache Acetaminophen/Butalbital/Caffeine (Fioricet) 1 tab PO Q6 PRN PRN Reason: Migraine headache Last Admin: 12/17/18 18:53 Dose: 1 tab Albuterol (Ventolin Hfa 90 Mcg/Actuation (8 G)) 2 puff IH Q4 PRN PRN Reason: Shortness of Breath Albuterol/Ipratropium (Duoneb 3 Mg/0.5 Mg (3 Ml) Ud) 3 ml INH RQ4 [facility] Last Admin: 12/18/18 04:49 Dose: 3 ml Albuterol/Ipratropium (Duoneb 3 Mg/0.5 Mg (3 Ml) Ud) 3 ml IH RQ2 PRN PRN Reason: Shortness of Breath Aspirin (Aspirin Chewable) 81 mg PO DAILY [facility] Atorvastatin Calcium (Lipitor) 80 mg PO HS [facility] Last Admin: 12/17/18 23:20 Dose: 80 mg Azithromycin (Zithromax) 500 mg PO DAILY [facility]; Protocol Budesonide (Pulmicort Respules) 0.5 mg IH RBID [facility] Last Admin: 12/17/18 23:20 Dose: 0.5 mg Dextrose (Dextrose 50% Inj) 0 ml IV STAT PRN; Protocol PRN Reason: Hypoglycemia Protocol Dextrose (Glutose 15) 0 gm PO ONCE PRN; Protocol PRN Reason: Hypoglycemia Protocol Enoxaparin Sodium (Lovenox) 40 mg SC DAILY [facility]; Protocol Glucagon (Glucagen Diagnostic Kit) 0 mg IM STAT PRN; Protocol PRN Reason: Hypoglycemia Protocol Guaifenesin/Dextromethorphan (Mucinex-Dm 600-30 Mg) 1 tab PO Q12 [facility] Last Admin: 12/17/18 23:21 Dose: 1 tab Ibuprofen (Motrin Tab) 400 mg PO Q6 PRN PRN Reason: Fever >100.4 F Insulin Human Lispro (Humalog) 0 units SC [facility]; Protocol Lisinopril (Zestril) 10 mg PO DAILY [facility] Methylprednisolone (Solu-Medrol) 60 mg IV Q8 [facility] Last Admin: 12/18/18 00:33 Dose: 60 mg Metoprolol Tartrate (Lopressor) 25 mg PO DAILY [facility] Ondansetron HCl (Zofran Inj) 4 mg IVP Q6 PRN PRN Reason: Nausea/Vomiting Oxycodone/Acetaminophen (Percocet 5/325 Mg Tab) 1 tab PO Q6 PRN PRN Reason: SEVERE PAIN (8-10) Stop: 12/20/18 19:32 Last Admin: 12/18/18 05:53 Dose: 1 tab Pantoprazole Sodium (Protonix Ec Tab) 40 mg PO DAILY [facility] Pregabalin (Lyrica) 75 mg PO Q8 [facility] Last Admin: 12/18/18 00:27 Dose: 75 mg Ticagrelor (Brilinta) 90 mg PO BID [facility] - Labs Labs: 12/17/18 15:55 12/17/18 15:55 - Constitutional Appears: Well, Non-toxic, No Acute Distress - Head Exam Head Exam: ATRAUMATIC, NORMAL INSPECTION, NORMOCEPHALIC - Eye Exam Eye Exam: EOMI, PERRL - ENT Exam ENT Exam: Mucous Membranes Moist - Respiratory Exam Respiratory Exam: Wheezes, NORMAL BREATHING PATTERN Additional comments: distant breath sounds - Cardiovascular Exam Cardiovascular Exam: REGULAR RHYTHM, RRR, +S1, +S2 - GI/Abdominal Exam GI & Abdominal Exam: Normal Bowel Sounds, Soft. absent: Tenderness - Extremities Exam Extremities exam: Positive for: full ROM, normal inspection. Negative for: pedal edema - Neurological Exam Neurological exam: Alert, CN II-XII Intact, Oriented x3 - Skin Skin Exam: Dry, Intact Assessment and Plan (1) COPD exacerbation Assessment & Plan: CXR: shows no acute pulmonary disease BNP: unremarkable Given solumedrol 125 mg IV and duonebs in ED Continue solumedrol 40 mg IV daily, duonebs, and pulmicort. Status: Acute (2) CAD (coronary artery disease) Assessment & Plan: EKG: NSR BNP: 554 Tropx2: unremarkable Will continue aspirin, brilinta, rosuvastatin, lopressor, and zestril. Status: Acute (3) Hyperlipidemia Assessment & Plan: Lipid panel unremarkable Continue with rosuvastatin. Status: Acute (4) HTN (hypertension) Assessment & Plan: Continue with lopressor and zestril Status: Acute
[2018-12-18] MEDS: Budesonide 0.5 mg/2 ml Inhal Susp UD IH SCH ×2 (07:37→19:59)
[2018-12-18] MEDS: Insulin Lispro (humaLOG) 100 Units/ml Inj SC SCH ×4 (08:00→21:59)
--- NOTE | 2018-12-18 08:51 | CP.PCM.PN ---
<Kori Hdz - Last Filed: 12/18/18 14:44> Subjective - Date & Time of Evaluation Date of Evaluation: 12/18/18 Time of Evaluation: 09:26 - Subjective Subjective: Patient was seen and examined this morning. Pt complaining of shortness of breath. As per respiratory therapy pt desaturated to 85-86% on room air. She denied any cp, sob or lower leg swelling. Denies f or chills. Objective - Vital Signs/Intake and Output Vital Signs (last 24 hours): Temp Pulse Resp BP Pulse Ox 97.8 F 89 20 144/83 96 12/18/18 08:18 12/18/18 08:18 12/18/18 08:18 12/18/18 08:18 12/18/18 08:18 - Medications Medications: Current Medications Acetaminophen (Tylenol 325mg Tab) 650 mg PO Q6 PRN PRN Reason: Headache Acetaminophen/Butalbital/Caffeine (Fioricet) 1 tab PO Q6 PRN PRN Reason: Migraine headache Last Admin: 12/17/18 18:53 Dose: 1 tab Albuterol (Ventolin Hfa 90 Mcg/Actuation (8 G)) 2 puff IH Q4 PRN PRN Reason: Shortness of Breath Albuterol/Ipratropium (Duoneb 3 Mg/0.5 Mg (3 Ml) Ud) 3 ml INH RQ4 [facility] Last Admin: 12/18/18 07:37 Dose: 3 ml Albuterol/Ipratropium (Duoneb 3 Mg/0.5 Mg (3 Ml) Ud) 3 ml IH RQ2 PRN PRN Reason: Shortness of Breath Aspirin (Aspirin Chewable) 81 mg PO DAILY [facility] Atorvastatin Calcium (Lipitor) 80 mg PO HS [facility] Last Admin: 12/17/18 23:20 Dose: 80 mg Azithromycin (Zithromax) 500 mg PO DAILY [facility]; Protocol Budesonide (Pulmicort Respules) 0.5 mg IH RBID [facility] Last Admin: 12/18/18 07:37 Dose: 0.5 mg Dextrose (Dextrose 50% Inj) 0 ml IV STAT PRN; Protocol PRN Reason: Hypoglycemia Protocol Dextrose (Glutose 15) 0 gm PO ONCE PRN; Protocol PRN Reason: Hypoglycemia Protocol Enoxaparin Sodium (Lovenox) 40 mg SC DAILY [facility]; Protocol Glucagon (Glucagen Diagnostic Kit) 0 mg IM STAT PRN; Protocol PRN Reason: Hypoglycemia Protocol Guaifenesin/Dextromethorphan (Mucinex-Dm 600-30 Mg) 1 tab PO Q12 [facility] Last Admin: 12/17/18 23:21 Dose: 1 tab Ibuprofen (Motrin Tab) 400 mg PO Q6 PRN PRN Reason: Fever >100.4 F Insulin Human Lispro (Humalog) 0 units SC ACHS [facility]; Protocol Last Admin: 12/18/18 08:00 Dose: 3 units Lisinopril (Zestril) 10 mg PO DAILY [facility] Methylprednisolone (Solu-Medrol) 60 mg IV Q8 [facility] Last Admin: 12/18/18 00:33 Dose: 60 mg Metoprolol Tartrate (Lopressor) 25 mg PO DAILY [facility] Ondansetron HCl (Zofran Inj) 4 mg IVP Q6 PRN PRN Reason: Nausea/Vomiting Oxycodone/Acetaminophen (Percocet 5/325 Mg Tab) 1 tab PO Q6 PRN PRN Reason: SEVERE PAIN (8-10) Stop: 12/20/18 19:32 Last Admin: 12/18/18 05:53 Dose: 1 tab Pantoprazole Sodium (Protonix Ec Tab) 40 mg PO DAILY [facility] Pregabalin (Lyrica) 75 mg PO Q8 [facility] Last Admin: 12/18/18 00:27 Dose: 75 mg Ticagrelor (Brilinta) 90 mg PO BID [facility] - Labs Labs: 12/17/18 15:55 12/17/18 15:55 - Constitutional Appears: Non-toxic - Head Exam Head Exam: ATRAUMATIC, NORMAL INSPECTION - Eye Exam Eye Exam: EOMI - ENT Exam ENT Exam: Mucous Membranes Moist - Respiratory Exam Respiratory Exam: absent: Respiratory Distress Additional comments: on 2 L of oxygen via NC, able to speak in full sentences, scattered rhonchi - Cardiovascular Exam Cardiovascular Exam: REGULAR RHYTHM, +S1, +S2 - GI/Abdominal Exam GI & Abdominal Exam: Soft, Normal Bowel Sounds. absent: Guarding, Rigid, Tenderness - Extremities Exam Extremities Exam: absent: Calf Tenderness - Neurological Exam Neurological Exam: Alert, Awake, Oriented x3 - Psychiatric Exam Psychiatric exam: Normal Mood - Skin Skin Exam: Dry Assessment and Plan - Assessment and Plan (Free Text) Assessment: A/P: 63 yo female with history of HTN, COPD, fibromyalgia, migraines, chronic fatigue and IL 07/2018 s/p stent admitted to [facility] for evaluation and treatment of COPD exacerbation. 1. COPD Exacerbation (acute on chronic) -C/w ventolin Q4 prn - C/w Duoneb Q4H and PRN Q2H - C/w MethylPred 60mg Q8H - C/w Azithromycin QD - START MuCinex - C/W Pulmicort BID 2. Recent Hx of IL and s/p Stent - D. Jin recommendations appreciated - C/w ASA, Lipitor, Brilinta, Metoprolol 25 PO daily -FU echo; previous echo 06/2018 reported as normal systolic function with LA dilatation 3. Hypoxia ( acute on chronic) -Likely due to COPD, possible due to cardiac -Desaturated to 85-86% -Case management FU for home oxygen -C/w 2 L of NC 4. HTN (Chronic, Controlled) - C/w Zestril 10mg QD 5. Elevated HBA1C/New onset of DM-II - A1C 6.6 today with normal lipids - Accuchecks/ACHS - Sliding scale and hypoglycemic protocol - Consider discharge on metformin 6. Chronic pain/fibromyalgia - C/w pain management as ordered & Lyrica - C/w Pain Pump, Morphine and CLonidine 7. DVT PPx - Lovenox 40mg SC daily <Nirmal Martin D - Last Filed: 12/19/18 09:33> Objective - Vital Signs/Intake and Output Vital Signs (last 24 hours): Temp Pulse Resp BP Pulse Ox 98.2 F 85 20 145/75 90 L 12/18/18 16:42 12/18/18 16:42 12/18/18 16:42 12/18/18 16:42 12/18/18 16:42 - Medications Medications: Current Medications Acetaminophen (Tylenol 325mg Tab) 650 mg PO Q6 PRN PRN Reason: Headache Acetaminophen/Butalbital/Caffeine (Fioricet) 1 tab PO Q6 PRN PRN Reason: Migraine headache Last Admin: 12/18/18 14:22 Dose: 1 tab Albuterol (Ventolin Hfa 90 Mcg/Actuation (8 G)) 2 puff IH Q4 PRN PRN Reason: Shortness of Breath Albuterol/Ipratropium (Duoneb 3 Mg/0.5 Mg (3 Ml) Ud) 3 ml INH RQ4 [facility] Last Admin: 12/18/18 16:47 Dose: 3 ml Albuterol/Ipratropium (Duoneb 3 Mg/0.5 Mg (3 Ml) Ud) 3 ml IH RQ2 PRN PRN Reason: Shortness of Breath Aspirin (Aspirin Chewable) 81 mg PO DAILY [facility] Last Admin: 12/18/18 09:50 Dose: 81 mg Atorvastatin Calcium (Lipitor) 80 mg PO HS [facility] Last Admin: 12/17/18 23:20 Dose: 80 mg Azithromycin (Zithromax) 500 mg PO DAILY [facility]; Protocol Last Admin: 12/18/18 09:56 Dose: 500 mg Budesonide (Pulmicort Respules) 0.5 mg IH RBID [facility] Last Admin: 12/18/18 07:37 Dose: 0.5 mg Dextrose (Dextrose 50% Inj) 0 ml IV STAT PRN; Protocol PRN Reason: Hypoglycemia Protocol Dextrose (Glutose 15) 0 gm PO ONCE PRN; Protocol PRN Reason: Hypoglycemia Protocol Enoxaparin Sodium (Lovenox) 40 mg SC DAILY [facility]; Protocol Last Admin: 12/18/18 09:52 Dose: 40 mg Glucagon (Glucagen Diagnostic Kit) 0 mg IM STAT PRN; Protocol PRN Reason: Hypoglycemia Protocol Guaifenesin/Dextromethorphan (Mucinex-Dm 600-30 Mg) 1 tab PO Q12 [facility] Last Admin: 12/18/18 09:53 Dose: 1 tab Ibuprofen (Motrin Tab) 400 mg PO Q6 PRN PRN Reason: Fever >100.4 F Insulin Human Lispro (Humalog) 0 units SC ACHS [facility]; Protocol Last Admin: 12/18/18 16:51 Dose: Not Given Lisinopril (Zestril) 10 mg PO DAILY [facility] Last Admin: 12/18/18 09:56 Dose: 10 mg Methylprednisolone (Solu-Medrol) 60 mg IV Q8 [facility] Last Admin: 12/18/18 09:54 Dose: 60 mg Metoprolol Tartrate (Lopressor) 25 mg PO DAILY [facility] Last Admin: 12/18/18 09:51 Dose: 25 mg Ondansetron HCl (Zofran Inj) 4 mg IVP Q6 PRN PRN Reason: Nausea/Vomiting Oxycodone/Acetaminophen (Percocet 5/325 Mg Tab) 1 tab PO Q6 PRN PRN Reason: SEVERE PAIN (8-10) Stop: 12/20/18 19:32 Last Admin: 12/18/18 13:10 Dose: 1 tab Pantoprazole Sodium (Protonix Ec Tab) 40 mg PO DAILY [facility] Last Admin: 12/18/18 09:53 Dose: 40 mg Pregabalin (Lyrica) 75 mg PO Q8 [facility] Last Admin: 12/18/18 10:07 Dose: 75 mg Ticagrelor (Brilinta) 90 mg PO BID [facility] Last Admin: 12/18/18 09:50 Dose: 90 mg - Labs Labs: 12/17/18 15:55 12/17/18 15:55 Attending/Attestation - Attestation I have personally seen and examined this patient.: Yes I have fully participated in the care of the patient.: Yes I have reviewed all pertinent clinical information, including history, physical exam and plan: Yes Notes (Text): 12/18/18 17:40 Patient seen and examined with resident. Case discussed and agreed with as sessment. Patient breathing has improved but admitted feeling SOB on mild exertion. Patient would need home O2. ABG showed pO2 at 46 on RA.
[2018-12-18] MEDS ORDERED: methylPREDNISolone 40 MG in Sodium Chloride 0.9% 50 ML IV SCH (09:00)
[2018-12-18] MEDS ORDERED: MethylPREDNISolone 40 mg Vial IVP SCH (09:00)
--- NOTE | 2018-12-18 09:19 | CARD ---
APPROVED REPORT Date of service: 12/17/2018 EKG Measurement Heart [id number] <Conclusion> Normal sinus rhythm Low voltage QRS Borderline ECG
[2018-12-18] MEDS: Enoxaparin 40 mg Syringe SC SCH (09:52)
[2018-12-18] MEDS: guaiFENesin-DM 600-30 mg ER Tab PO SCH ×2 (09:53→21:56)
[2018-12-18] MEDS: Pantoprazole 40 mg EC Tab PO SCH (09:53)
[2018-12-18] MEDS: Apap-Butalbital-Caffeine 325-50-40mg Tab PO PRN (14:22)
[2018-12-18 16:58] LABS: ABG ALLEN TEST YES; ARTERIAL BLOOD GAS HCO3 26.9 mmol/L (21-28); ARTERIAL BLOOD GAS HEMOGLOBIN 11.2 g/dL (11.7-17.4); ARTERIAL BLOOD GAS O2 CAPACITY 15.5 mL/dL (16-24); ARTERIAL BLOOD GAS O2 CONTENT 13.3 ML/dL (15-23); ARTERIAL BLOOD GAS O2 SAT 85.6 % (95-98); ARTERIAL BLOOD GAS PCO2 50 mm/Hg (35-45); ARTERIAL BLOOD GAS PH 7.37 (7.35-7.45); ARTERIAL BLOOD GAS PO2 46 mm/Hg (80-100); ARTERIAL BLOOD GAS TCO2 30.4 mmol/L (22-28)
--- NOTE | 2018-12-18 19:20 | CARD ---
APPROVED REPORT Date of service: 12/18/2018 EXAM: Two-dimensional and M-mode echocardiogram with Doppler and color Doppler. Other Information Quality : GoodRhythm : NSR INDICATION Dyspnea Surgery/Intervention Status/Post Intervention: Stent 2D DIMENSIONS IVSd1.20 (0.7-1.1cm)LVDd3.95 (3.9-5.9cm) LVOT Diameter2.32 (1.8-2.4cm)PWd1.43 (0.7-1.1cm) IVSs1.41 (0.8-1.2cm)LVDs3.52 (2.5-4.0cm) FS (%) 11.1 %PWs1.32 (0.8-1.2cm) M-Mode DIMENSIONS Left Atrium (MM)3.54 (2.5-4.0cm)IVSd1.03 (0.7-1.1cm) Aortic Root3.47 (2.2-3.7cm)LVDd4.24 (4.0-5.6cm) Aortic Cusp Exc.2.55 (1.5-2.0cm)PWd1.06 (0.7-1.1cm) IVSs1.65 cmFS (%) 45 % LVDs2.35 (2.0-3.8cm)PWs1.75 cm Aortic Valve AoV Peak Nimpcutt138.6cm/sAoV VTI20.7cmAO Peak GR.5mmHg LVOT Peak Qrcdxodp22.9cm/sLVOT VTI19.34cmAO Mean GR.3mmHg ASHTYN (VMAX)2.06so3AQM (VTI)2.38cm2 Mitral Valve MV E Xjltpria89.2cm/sMV DECEL [id number] A Pwlxbopq14.6cm/s MV [id number]/A ratio0.7MVA (PHT)3.18cm2 TDI Lateral E' Peak V8.56cm/sMedial E' Peak V5.95cm/sE/Lateral E'5.5 E/Medial E'7.9 LEFT VENTRICLE The left ventricle is normal size. There is mild concentric left ventricular hypertrophy. The left ventricular systolic function is normal. The estimated ejection fraction is 55-60% No regional wall motion abnormalities noted.. Transmitral Doppler flow pattern is Grade I-abnormal relaxation pattern. No left ventricle thrombus noted on this study. There is no ventricular septal defect visualized. There is no left ventricular aneurysm. There is no mass noted in the left ventricle. RIGHT VENTRICLE The right ventricle is normal size. There is normal right ventricular wall thickness. The right ventricular systolic function is normal. ATRIA The left atrium is mildly dilated. The right atrium size is normal. The interatrial septum is intact with no evidence for an atrial septal defect. AORTIC VALVE The aortic valve is normal in structure. No aortic regurgitation is present. There is no aortic valvular stenosis. There is no aortic valvular vegetation. MITRAL VALVE The mitral valve is normal in structure. There is no evidence of mitral valve prolapse. There is no mitral valve stenosis. There is no mitral valve regurgitation noted. TRICUSPID VALVE The tricuspid valve is normal in structure. There is no tricuspid valve regurgitation noted. There is no tricuspid valve prolapse or vegetation. There is no tricuspid valve stenosis. PULMONIC VALVE The pulmonary valve is normal in structure. There is no pulmonic valvular regurgitation. There is no pulmonic valvular stenosis. GREAT VESSELS The aortic root is normal in size. The ascending aorta is normal in size. The pulmonary artery is normal. The IVC is not well visualized. PERICARDIAL EFFUSION There is no pericardial effusion. There is no pleural effusion. <Conclusion> There is mild concentric left ventricular hypertrophy. The estimated ejection fraction is 55-60% Transmitral Doppler flow pattern is Grade I-abnormal relaxation pattern. The left atrium is mildly dilated. There is no tricuspid valve regurgitation noted. The IVC is not well visualized.
[2018-12-19] MEDS: Oxycodone/Acetaminophen 5/325 mg Tab PO PRN ×4 (01:09→23:51)
[2018-12-19] MEDS: Albuterol-Ipratrop 3 mg / 0.5 (3 ml) UD INH SCH ×5 (05:01→19:02)
[2018-12-19] MEDS: Budesonide 0.5 mg/2 ml Inhal Susp UD IH SCH ×2 (07:21→19:02)
[2018-12-19] MEDS: Insulin Lispro (humaLOG) 100 Units/ml Inj SC SCH ×4 (07:25→21:39)
[2018-12-19 07:56] LABS: BASO % 0.8 % (0.0-2.0); EOS % 0.1 % (0.0-4.0); HEMOGLOBIN 11.2 g/dL (12.0-16.0); LYMPH # 0.6 K/uL (1.0-4.3); LYMPH % 13.4 % (20.0-40.0); MEAN CELL VOLUME 90.9 fl (81.0-99.0); MEAN CORPUSCULAR HEMOGLOBIN 30.4 pg (27.0-31.0); MEAN CORPUSCULAR HGB CONC 33.4 g/dL (33.0-37.0); MONO # 0.2 K/uL (0.0-0.8); MONO % 4.9 % (0.0-10.0); NEUT # 3.8 K/uL (1.8-7.0); NEUT % 80.8 % (50.0-75.0); NRBC % 0.2 % (0.0-0.0); RBC 3.67 Mil/uL (3.80-5.20); RED CELL DISTRIBUTION WIDTH 13.9 % (11.5-14.5); WHITE BLOOD COUNT 4.7 K/uL (4.8-10.8)
[2018-12-19 08:40] LABS: BLOOD UREA NITROGEN 21 mg/dl (7-17); CALCIUM 8.7 mg/dL (8.4-10.2); GFR NON-AFRICAN AMERICAN > 60
--- NOTE | 2018-12-19 11:19 | CP.PCM.PN ---
<Kori Hdz - Last Filed: 12/19/18 14:18> Subjective - Date & Time of Evaluation Date of Evaluation: 12/19/18 Time of Evaluation: 09:16 - Subjective Subjective: Patient was seen and evaluated this morning, on 2 L of NC saturating at 91%, speaking in full sentences. Patient has no complaints. Denies f/c/n/v/diarrhea, cp or sob. Objective - Vital Signs/Intake and Output Vital Signs (last 24 hours): Temp Pulse Resp BP Pulse Ox 97.1 F L 85 20 128/70 90 L 12/19/18 08:55 12/19/18 08:55 12/19/18 08:55 12/19/18 08:55 12/19/18 08:55 - Medications Medications: Current Medications Acetaminophen (Tylenol 325mg Tab) 650 mg PO Q6 PRN PRN Reason: Headache Acetaminophen/Butalbital/Caffeine (Fioricet) 1 tab PO Q6 PRN PRN Reason: Migraine headache Last Admin: 12/18/18 14:22 Dose: 1 tab Albuterol (Ventolin Hfa 90 Mcg/Actuation (8 G)) 2 puff IH Q4 PRN PRN Reason: Shortness of Breath Albuterol/Ipratropium (Duoneb 3 Mg/0.5 Mg (3 Ml) Ud) 3 ml INH RQ4 [facility] Last Admin: 12/19/18 07:22 Dose: 3 ml Albuterol/Ipratropium (Duoneb 3 Mg/0.5 Mg (3 Ml) Ud) 3 ml IH RQ2 PRN PRN Reason: Shortness of Breath Aspirin (Aspirin Chewable) 81 mg PO DAILY [facility] Last Admin: 12/18/18 09:50 Dose: 81 mg Atorvastatin Calcium (Lipitor) 80 mg PO HS [facility] Last Admin: 12/18/18 21:55 Dose: 80 mg Azithromycin (Zithromax) 500 mg PO DAILY [facility]; Protocol Last Admin: 12/18/18 09:56 Dose: 500 mg Budesonide (Pulmicort Respules) 0.5 mg IH RBID [facility] Last Admin: 12/19/18 07:21 Dose: 0.5 mg Dextrose (Dextrose 50% Inj) 0 ml IV STAT PRN; Protocol PRN Reason: Hypoglycemia Protocol Dextrose (Glutose 15) 0 gm PO ONCE PRN; Protocol PRN Reason: Hypoglycemia Protocol Enoxaparin Sodium (Lovenox) 40 mg SC DAILY [facility]; Protocol Last Admin: 12/18/18 09:52 Dose: 40 mg Glucagon (Glucagen Diagnostic Kit) 0 mg IM STAT PRN; Protocol PRN Reason: Hypoglycemia Protocol Guaifenesin/Dextromethorphan (Mucinex-Dm 600-30 Mg) 1 tab PO Q12 [facility] Last Admin: 12/18/18 21:56 Dose: 1 tab Ibuprofen (Motrin Tab) 400 mg PO Q6 PRN PRN Reason: Fever >100.4 F Insulin Human Lispro (Humalog) 0 units SC ACHS [facility]; Protocol Last Admin: 12/19/18 07:25 Dose: 3 units Lisinopril (Zestril) 10 mg PO DAILY [facility] Last Admin: 12/18/18 09:56 Dose: 10 mg Methylprednisolone (Solu-Medrol) 60 mg IV Q8 [facility] Last Admin: 12/19/18 01:11 Dose: 60 mg Metoprolol Tartrate (Lopressor) 25 mg PO DAILY [facility] Last Admin: 12/18/18 09:51 Dose: 25 mg Ondansetron HCl (Zofran Inj) 4 mg IVP Q6 PRN PRN Reason: Nausea/Vomiting Oxycodone/Acetaminophen (Percocet 5/325 Mg Tab) 1 tab PO Q6 PRN PRN Reason: SEVERE PAIN (8-10) Stop: 12/20/18 19:32 Last Admin: 12/19/18 07:23 Dose: 1 tab Pantoprazole Sodium (Protonix Ec Tab) 40 mg PO DAILY [facility] Last Admin: 12/18/18 09:53 Dose: 40 mg Pregabalin (Lyrica) 75 mg PO Q8 [facility] Last Admin: 12/19/18 01:12 Dose: Not Given Ticagrelor (Brilinta) 90 mg PO BID [facility] Last Admin: 12/18/18 17:44 Dose: 90 mg - Labs Labs: 12/19/18 06:00 12/19/18 06:00 - Constitutional Appears: Non-toxic - Head Exam Head Exam: ATRAUMATIC - Eye Exam Eye Exam: EOMI - ENT Exam ENT Exam: Mucous Membranes Moist - Respiratory Exam Respiratory Exam: Rhonchi. absent: Respiratory Distress - Cardiovascular Exam Cardiovascular Exam: REGULAR RHYTHM, +S1, +S2 - GI/Abdominal Exam GI & Abdominal Exam: Soft, Normal Bowel Sounds. absent: Guarding, Rigid, Tenderness - Extremities Exam Extremities Exam: absent: Calf Tenderness - Neurological Exam Neurological Exam: Alert, Awake, Oriented x3 - Psychiatric Exam Psychiatric exam: Normal Mood - Skin Skin Exam: Dry, Intact Assessment and Plan - Assessment and Plan (Free Text) Assessment: A/P: 63 yo female with history of HTN, COPD, fibromyalgia, migraines, chronic fatigue and [place] 07/2018 s/p stent admitted to [facility] for evaluation and treatment of COPD exacerbation. 1. COPD Exacerbation (acute on chronic) -C/w ventolin Q4 prn - C/w Duoneb Q4H and PRN Q2H - C/w MethylPred 60mg Q8H - C/w Azithromycin QD - START MuCinex - C/W Pulmicort BID 2. Recent Hx of [place] and s/p Stent - D. Jin recommendations appreciated - C/w ASA, Lipitor, Brilinta, Metoprolol 25 PO daily -FU echo; previous echo 06/2018 reported as normal systolic function with LA dilatation 3. Hypoxia ( acute on chronic) -Likely due to COPD, possible due to cardiac -Desaturated to 85-86% -Case management working on oxygen likely for friday -C/w 2 L of NC 4. HTN (Chronic, Controlled) - C/w Zestril 10mg QD 5. Elevated HBA1C/New onset of DM-II - A1C 6.6 today with normal lipids - Accuchecks/ACHS - Sliding scale and hypoglycemic protocol - Consider discharge on metformin 6. Chronic pain/fibromyalgia - C/w pain management as ordered & Lyrica - C/w Pain Pump, Morphine and CLonidine 7. DVT PPx - Lovenox 40mg SC daily <Nirmal Martin D - Last Filed: 12/19/18 18:29> Objective - Vital Signs/Intake and Output Vital Signs (last 24 hours): Temp Pulse Resp BP Pulse Ox 98 F 83 20 124/65 91 L 12/19/18 16:39 12/19/18 16:39 12/19/18 16:39 12/19/18 16:39 12/19/18 16:39 - Medications Medications: Current Medications Acetaminophen (Tylenol 325mg Tab) 650 mg PO Q6 PRN PRN Reason: Headache Acetaminophen/Butalbital/Caffeine (Fioricet) 1 tab PO Q6 PRN PRN Reason: Migraine headache Last Admin: 12/18/18 14:22 Dose: 1 tab Albuterol (Ventolin Hfa 90 Mcg/Actuation (8 G)) 2 puff IH Q4 PRN PRN Reason: Shortness of Breath Albuterol/Ipratropium (Duoneb 3 Mg/0.5 Mg (3 Ml) Ud) 3 ml INH RQ4 [facility] Last Admin: 12/19/18 15:04 Dose: 3 ml Albuterol/Ipratropium (Duoneb 3 Mg/0.5 Mg (3 Ml) Ud) 3 ml IH RQ2 PRN PRN Reason: Shortness of Breath Aspirin (Aspirin Chewable) 81 mg PO DAILY [facility] Last Admin: 12/19/18 11:15 Dose: 81 mg Atorvastatin Calcium (Lipitor) 80 mg PO HS [facility] Last Admin: 12/18/18 21:55 Dose: 80 mg Azithromycin (Zithromax) 500 mg PO DAILY [facility]; Protocol Last Admin: 12/19/18 12:14 Dose: 500 mg Budesonide (Pulmicort Respules) 0.5 mg IH RBID [facility] Last Admin: 12/19/18 07:21 Dose: 0.5 mg Dextrose (Dextrose 50% Inj) 0 ml IV STAT PRN; Protocol PRN Reason: Hypoglycemia Protocol Dextrose (Glutose 15) 0 gm PO ONCE PRN; Protocol PRN Reason: Hypoglycemia Protocol Docusate Sodium (Colace) 100 mg PO BID [facility] Last Admin: 12/19/18 17:20 Dose: 100 mg Enoxaparin Sodium (Lovenox) 40 mg SC DAILY [facility]; Protocol Last Admin: 12/19/18 12:26 Dose: 40 mg Glucagon (Glucagen Diagnostic Kit) 0 mg IM STAT PRN; Protocol PRN Reason: Hypoglycemia Protocol Guaifenesin/Dextromethorphan (Mucinex-Dm 600-30 Mg) 1 tab PO Q12 [facility] Last Admin: 12/19/18 12:13 Dose: 1 tab Ibuprofen (Motrin Tab) 400 mg PO Q6 PRN PRN Reason: Fever >100.4 F Insulin Human Lispro (Humalog) 0 units SC ACHS [facility]; Protocol Last Admin: 12/19/18 17:18 Dose: 4 units Lisinopril (Zestril) 10 mg PO DAILY [facility] Last Admin: 12/19/18 11:13 Dose: 10 mg Methylprednisolone (Solu-Medrol) 60 mg IV Q8 [facility] Last Admin: 12/19/18 17:21 Dose: 60 mg Metoprolol Tartrate (Lopressor) 25 mg PO DAILY [facility] Last Admin: 12/19/18 12:27 Dose: 25 mg Ondansetron HCl (Zofran Inj) 4 mg IVP Q6 PRN PRN Reason: Nausea/Vomiting Oxycodone/Acetaminophen (Percocet 5/325 Mg Tab) 1 tab PO Q6 PRN PRN Reason: SEVERE PAIN (8-10) Stop: 12/20/18 19:32 Last Admin: 12/19/18 12:24 Dose: 1 tab Pantoprazole Sodium (Protonix Ec Tab) 40 mg PO DAILY [facility] Last Admin: 12/19/18 12:16 Dose: 40 mg Pregabalin (Lyrica) 75 mg PO Q8 [facility] Last Admin: 12/19/18 12:24 Dose: 75 mg Ticagrelor (Brilinta) 90 mg PO BID [facility] Last Admin: 12/19/18 17:21 Dose: 90 mg - Labs Labs: 12/19/18 06:00 12/19/18 06:00 Attending/Attestation - Attestation I have personally seen and examined this patient.: Yes I have fully participated in the care of the patient.: Yes I have reviewed all pertinent clinical information, including history, physical exam and plan: Yes Notes (Text): 12/19/18 18:29 Patient seen and examined with resident. Case discussed and agreed with assessment.
[2018-12-19] MEDS: guaiFENesin-DM 600-30 mg ER Tab PO SCH ×2 (12:13→21:16)
[2018-12-19] MEDS: Pantoprazole 40 mg EC Tab PO SCH (12:16)
[2018-12-19] MEDS: Enoxaparin 40 mg Syringe SC SCH (12:26)
[2018-12-20] MEDS: Albuterol-Ipratrop 3 mg / 0.5 (3 ml) UD INH SCH ×7 (01:10→23:49)
[2018-12-20] MEDS: Oxycodone/Acetaminophen 5/325 mg Tab PO PRN ×2 (06:25→16:31)
[2018-12-20] MEDS: Budesonide 0.5 mg/2 ml Inhal Susp UD IH SCH (07:09)
[2018-12-20 07:17] LABS: BASO % 0.1 % (0.0-2.0); HEMOGLOBIN 10.5 g/dL (12.0-16.0); LYMPH # 0.8 K/uL (1.0-4.3); LYMPH % 14.9 % (20.0-40.0); MEAN CELL VOLUME 91.5 fl (81.0-99.0); MEAN CORPUSCULAR HEMOGLOBIN 29.9 pg (27.0-31.0); MEAN CORPUSCULAR HGB CONC 32.6 g/dL (33.0-37.0); MONO # 0.3 K/uL (0.0-0.8); MONO % 5.3 % (0.0-10.0); NEUT # 4.3 K/uL (1.8-7.0); NEUT % 79.7 % (50.0-75.0); NRBC % 0.1 % (0.0-0.0); RBC 3.53 Mil/uL (3.80-5.20); RED CELL DISTRIBUTION WIDTH 13.9 % (11.5-14.5); WHITE BLOOD COUNT 5.4 K/uL (4.8-10.8)
[2018-12-20 07:30] LABS: BLOOD UREA NITROGEN 23 mg/dl (7-17); CALCIUM 8.6 mg/dL (8.4-10.2); GFR NON-AFRICAN AMERICAN > 60
[2018-12-20] MEDS: Insulin Lispro (humaLOG) 100 Units/ml Inj SC SCH ×3 (09:37→16:41)
[2018-12-20] MEDS: guaiFENesin-DM 600-30 mg ER Tab PO SCH ×2 (09:38→23:06)
[2018-12-20] MEDS: Enoxaparin 40 mg Syringe SC SCH (09:38)
[2018-12-20] MEDS: Pantoprazole 40 mg EC Tab PO SCH (09:39)
--- NOTE | 2018-12-20 12:39 | CP.PCM.PN ---
<Tracey Espinoza - Last Filed: 12/20/18 13:04> Subjective - Date & Time of Evaluation Date of Evaluation: 12/20/18 Time of Evaluation: 12:39 - Subjective Subjective: Patient was seen and examined bedside. She was comfortably sitting up in bed on 2L NC, saturating 93%. Able to hold full conversation without SOB. Patient complains of constipation but denies fever, chest pain, nausea, vomiting, and new-onset edema. Objective - Vital Signs/Intake and Output Vital Signs (last 24 hours): Temp Pulse Resp BP Pulse Ox 97.8 F 69 22 142/73 93 L 12/20/18 08:37 12/20/18 09:40 12/20/18 08:37 12/20/18 09:40 12/20/18 08:37 - Medications Medications: Current Medications Acetaminophen (Tylenol 325mg Tab) 650 mg PO Q6 PRN PRN Reason: Headache Acetaminophen/Butalbital/Caffeine (Fioricet) 1 tab PO Q6 PRN PRN Reason: Migraine headache Last Admin: 12/18/18 14:22 Dose: 1 tab Albuterol (Ventolin Hfa 90 Mcg/Actuation (8 G)) 2 puff IH Q4 PRN PRN Reason: Shortness of Breath Albuterol/Ipratropium (Duoneb 3 Mg/0.5 Mg (3 Ml) Ud) 3 ml INH RQ4 [facility] Last Admin: 12/20/18 11:01 Dose: 3 ml Albuterol/Ipratropium (Duoneb 3 Mg/0.5 Mg (3 Ml) Ud) 3 ml IH RQ2 PRN PRN Reason: Shortness of Breath Aspirin (Aspirin Chewable) 81 mg PO DAILY [facility] Last Admin: 12/20/18 09:36 Dose: 81 mg Atorvastatin Calcium (Lipitor) 80 mg PO HS [facility] Last Admin: 12/19/18 21:16 Dose: 80 mg Azithromycin (Zithromax) 500 mg PO DAILY [facility]; Protocol Last Admin: 12/20/18 09:40 Dose: 500 mg Budesonide (Pulmicort Respules) 0.5 mg IH RBID [facility] Last Admin: 12/20/18 07:09 Dose: 0.5 mg Dextrose (Dextrose 50% Inj) 0 ml IV STAT PRN; Protocol PRN Reason: Hypoglycemia Protocol Dextrose (Glutose 15) 0 gm PO ONCE PRN; Protocol PRN Reason: Hypoglycemia Protocol Docusate Sodium (Colace) 100 mg PO BID [facility] Last Admin: 12/20/18 09:36 Dose: 100 mg Enoxaparin Sodium (Lovenox) 40 mg SC DAILY [facility]; Protocol Last Admin: 12/20/18 09:38 Dose: 40 mg Glucagon (Glucagen Diagnostic Kit) 0 mg IM STAT PRN; Protocol PRN Reason: Hypoglycemia Protocol Guaifenesin/Dextromethorphan (Mucinex-Dm 600-30 Mg) 1 tab PO Q12 [facility] Last Admin: 12/20/18 09:38 Dose: 1 tab Ibuprofen (Motrin Tab) 400 mg PO Q6 PRN PRN Reason: Fever >100.4 F Insulin Human Lispro (Humalog) 0 units SC ACHS [facility]; Protocol Last Admin: 12/20/18 09:37 Dose: 3 units Lisinopril (Zestril) 10 mg PO DAILY [facility] Last Admin: 12/20/18 09:40 Dose: 10 mg Methylprednisolone (Solu-Medrol) 60 mg IV Q8 [facility] Last Admin: 12/20/18 09:39 Dose: 60 mg Metoprolol Tartrate (Lopressor) 25 mg PO DAILY [facility] Last Admin: 12/20/18 09:37 Dose: 25 mg Ondansetron HCl (Zofran Inj) 4 mg IVP Q6 PRN PRN Reason: Nausea/Vomiting Oxycodone/Acetaminophen (Percocet 5/325 Mg Tab) 1 tab PO Q6 PRN PRN Reason: SEVERE PAIN (8-10) Stop: 12/20/18 19:32 Last Admin: 12/20/18 06:25 Dose: 1 tab Pantoprazole Sodium (Protonix Ec Tab) 40 mg PO DAILY [facility] Last Admin: 12/20/18 09:39 Dose: 40 mg Pregabalin (Lyrica) 75 mg PO Q8 [facility] Last Admin: 12/20/18 09:49 Dose: 75 mg Ticagrelor (Brilinta) 90 mg PO BID [facility] Last Admin: 12/20/18 09:36 Dose: 90 mg - Labs Labs: 12/20/18 05:30 12/20/18 05:30 - Constitutional Appears: Non-toxic - Head Exam Head Exam: NORMAL INSPECTION - Eye Exam Eye Exam: Normal appearance - ENT Exam ENT Exam: Mucous Membranes Moist - Respiratory Exam Respiratory Exam: Decreased Breath Sounds, Rhonchi (diffuse). absent: Respiratory Distress - Cardiovascular Exam Cardiovascular Exam: REGULAR RHYTHM, +S1, +S2 - GI/Abdominal Exam GI & Abdominal Exam: Soft. absent: Tenderness - Extremities Exam Extremities Exam: absent: Pedal Edema Additional comments: callus present between digits 2 and 3 and 3 and 4 on L foot, s/p bunion surgery. digit 2 b/l onychomycosis - Neurological Exam Neurological Exam: Alert, Awake, Oriented x3 - Psychiatric Exam Psychiatric exam: Normal Affect, Normal Mood - Skin Skin Exam: Dry, Intact, Normal Color, Warm Assessment and Plan - Assessment and Plan (Free Text) Assessment: 63 yo female with history of HTN, COPD, fibromyalgia, migraines, chronic fatigue and [place] 07/2018 s/p stent admitted to [facility] for evaluation and treatment of COPD exacerbation. Plan: COPD Exacerbation (acute on chronic) -C/w ventolin Q4 prn -C/w Duoneb Q4H and PRN Q2H -C/w MethylPred 60mg Q8H -C/w Azithromycin QD -C/w MuCinex -C/w Pulmicort BID Recent Hx of [place] and s/p stent -Woody adams appreciated -C/w ASA, Lipitor, Brilinta, Metoprolol 25 PO daily -ECHO (12/18) - EF 55-60%, mild concentric hypertrophy, mild dilation of LA -----previous echo (06/2018) reported as normal systolic function with LA dilatation Hypoxia (acute on chronic) -Likely secondary to COPD, possibly cardiac -Desaturated to 85-86% off O2 -Home O2 pending (case management, likely Mon 12/21) -2L O2 NC HTN (Chronic, Controlled) -C/w Zestril 10mg QD Elevated HBA1C/New onset of DM-II -A1C 6.6, lipids, wnl -Accuchecks/ACHS -Sliding scale and hypoglycemic protocol -Discharge on metformin Chronic pain/fibromyalgia -C/w pain management as ordered & Lyrica -C/w Pain Pump, Morphine and Clonidine Constipation -C/w Colace 100mg BID -Dulcolax 5mg DVT PPx -Lovenox 40mg SC daily <Nirmal Martin D - Last Filed: 12/20/18 15:06> Objective - Vital Signs/Intake and Output Vital Signs (last 24 hours): Temp Pulse Resp BP Pulse Ox 97.8 F 69 22 142/73 93 L 12/20/18 08:37 12/20/18 09:40 12/20/18 08:37 12/20/18 09:40 12/20/18 08:37 - Medications Medications: Current Medications Acetaminophen (Tylenol 325mg Tab) 650 mg PO Q6 PRN PRN Reason: Headache Acetaminophen/Butalbital/Caffeine (Fioricet) 1 tab PO Q6 PRN PRN Reason: Migraine headache Last Admin: 12/18/18 14:22 Dose: 1 tab Albuterol (Ventolin Hfa 90 Mcg/Actuation (8 G)) 2 puff IH Q4 PRN PRN Reason: Shortness of Breath Albuterol/Ipratropium (Duoneb 3 Mg/0.5 Mg (3 Ml) Ud) 3 ml INH RQ4 [facility] Last Admin: 12/20/18 15:02 Dose: 3 ml Albuterol/Ipratropium (Duoneb 3 Mg/0.5 Mg (3 Ml) Ud) 3 ml IH RQ2 PRN PRN Reason: Shortness of Breath Aspirin (Aspirin Chewable) 81 mg PO DAILY [facility] Last Admin: 12/20/18 09:36 Dose: 81 mg Atorvastatin Calcium (Lipitor) 80 mg PO HS [facility] Last Admin: 12/19/18 21:16 Dose: 80 mg Azithromycin (Zithromax) 500 mg PO DAILY [facility]; Protocol Last Admin: 12/20/18 09:40 Dose: 500 mg Budesonide (Pulmicort Respules) 0.5 mg IH RBID [facility] Last Admin: 12/20/18 07:09 Dose: 0.5 mg Dextrose (Dextrose 50% Inj) 0 ml IV STAT PRN; Protocol PRN Reason: Hypoglycemia Protocol Dextrose (Glutose 15) 0 gm PO ONCE PRN; Protocol PRN Reason: Hypoglycemia Protocol Docusate Sodium (Colace) 100 mg PO BID [facility] Last Admin: 12/20/18 09:36 Dose: 100 mg Enoxaparin Sodium (Lovenox) 40 mg SC DAILY [facility]; Protocol Last Admin: 12/20/18 09:38 Dose: 40 mg Glucagon (Glucagen Diagnostic Kit) 0 mg IM STAT PRN; Protocol PRN Reason: Hypoglycemia Protocol Guaifenesin/Dextromethorphan (Mucinex-Dm 600-30 Mg) 1 tab PO Q12 [facility] Last Admin: 12/20/18 09:38 Dose: 1 tab Ibuprofen (Motrin Tab) 400 mg PO Q6 PRN PRN Reason: Fever >100.4 F Insulin Human Lispro (Humalog) 0 units SC ACHS [facility]; Protocol Last Admin: 12/20/18 13:02 Dose: 4 units Lisinopril (Zestril) 10 mg PO DAILY [facility] Last Admin: 12/20/18 09:40 Dose: 10 mg Methylprednisolone (Solu-Medrol) 60 mg IV Q8 [facility] Last Admin: 12/20/18 09:39 Dose: 60 mg Metoprolol Tartrate (Lopressor) 25 mg PO DAILY [facility] Last Admin: 12/20/18 09:37 Dose: 25 mg Ondansetron HCl (Zofran Inj) 4 mg IVP Q6 PRN PRN Reason: Nausea/Vomiting Oxycodone/Acetaminophen (Percocet 5/325 Mg Tab) 1 tab PO Q6 PRN PRN Reason: SEVERE PAIN (8-10) Stop: 12/20/18 19:32 Last Admin: 12/20/18 06:25 Dose: 1 tab Pantoprazole Sodium (Protonix Ec Tab) 40 mg PO DAILY [facility] Last Admin: 12/20/18 09:39 Dose: 40 mg Pregabalin (Lyrica) 75 mg PO Q8 [facility] Last Admin: 12/20/18 09:49 Dose: 75 mg Ticagrelor (Brilinta) 90 mg PO BID [facility] Last Admin: 12/20/18 09:36 Dose: 90 mg - Labs Labs: 12/20/18 05:30 12/20/18 05:30 Attending/Attestation - Attestation I have personally seen and examined this patient.: Yes I have fully participated in the care of the patient.: Yes I have reviewed all pertinent clinical information, including history, physical exam and plan: Yes Notes (Text): 12/20/18 15:04 Patient seen and examined with resident. Case discussed and agreed with assessment and plan. Patient continue to complain of SOB just ambulating to the bathroom.
[2018-12-20] MEDS ORDERED: Bisacodyl 5mg EC Tab PO ONE (13:01)
[2018-12-20 15:51] VITALS: BMI 23.8
[2018-12-21] MEDS: Oxycodone/Acetaminophen 5/325 mg Tab PO PRN ×3 (00:03→12:05)
[2018-12-21] MEDS: Insulin Lispro (humaLOG) 100 Units/ml Inj SC SCH ×3 (00:06→12:07)
[2018-12-21] MEDS: Albuterol-Ipratrop 3 mg / 0.5 (3 ml) UD INH SCH ×3 (04:47→13:55)
[2018-12-21 06:25] LABS: HEMOGLOBIN 11.5 g/dL (12.0-16.0); MEAN CELL VOLUME 90.9 fl (81.0-99.0); MEAN CORPUSCULAR HEMOGLOBIN 30.1 pg (27.0-31.0); MEAN CORPUSCULAR HGB CONC 33.1 g/dL (33.0-37.0); RBC 3.81 Mil/uL (3.80-5.20); WHITE BLOOD COUNT 6.9 K/uL (4.8-10.8)
[2018-12-21 06:27] LABS: ALB/GLOB RATIO 1.2 (1.0-2.1); ALBUMIN 3.9 g/dL (3.5-5.0); ALT/SGPT 22 U/L (9-52); AST/SGOT 21 U/L (14-36); BLOOD UREA NITROGEN 23 mg/dl (7-17); CALCIUM 8.8 mg/dL (8.4-10.2); GFR NON-AFRICAN AMERICAN > 60
[2018-12-21] MEDS: Budesonide 0.5 mg/2 ml Inhal Susp UD IH SCH (07:40)
[2018-12-21 08:13] VITALS: BP 154/75; PULSE 70; RESP 19; TEMP 97.5; O2SAT 94
[2018-12-21] MEDS: Enoxaparin 40 mg Syringe SC SCH (09:02)
[2018-12-21] MEDS: Pantoprazole 40 mg EC Tab PO SCH (09:03)
[2018-12-21] MEDS: guaiFENesin-DM 600-30 mg ER Tab PO SCH (09:03)
[2018-12-21] MEDS ORDERED: Sodium Chloride 3% for Inhalation 4 ML VIAL.NEB IH PRN (09:06)
--- NOTE | 2018-12-21 12:58 | CP.PCM.DIS ---
<Kori Hdz - Last Filed: 12/21/18 13:07> Provider - Provider Date of Admission: 12/17/18 17:28 Attending physician: Laura Kwon DO Consults: 12/17/18 22:33 Cardiology Consult Routine Comment: Consulting Provider: Cole Abdi Consulting Physician: Cole Abdi Reason for Consult: S/p MS and Stent, Dyspnea 12/20/18 15:03 Pulmonology Consult Routine Comment: Consulting Provider: Howard Quintanilla I Consulting Physician: Howard Quintanilla I Reason for Consult: COPD exacerbation Time Spent in preparation of Discharge (in minutes): 40 Hospital Course - Lab Results Lab Results: Micro Results 12/17/18 17:50 Blood-Venous Blood Culture - Preliminary NO GROWTH AFTER 3 DAYS 12/17/18 20:50 Throat Group A Strep Throat Culture - Final NO BETA STREP GROUP A ISOLATED. Most Recent Lab Values WBC 6.9 K/uL (4.8-10.8) 12/21/18 05:25 RBC 3.81 Mil/uL (3.80-5.20) 12/21/18 05:25 Hgb 11.5 g/dL (12.0-16.0) L 12/21/18 05:25 Hct 34.6 % (34.0-47.0) 12/21/18 05:25 MCV 90.9 fl (81.0-99.0) 12/21/18 05:25 MCH 30.1 pg (27.0-31.0) 12/21/18 05:25 MCHC 33.1 g/dL (33.0-37.0) 12/21/18 05:25 RDW 14.0 % (11.5-14.5) 12/21/18 05:25 Plt Count 269 K/uL (130-400) 12/21/18 05:25 MPV 7.0 fl (7.2-11.7) L 12/20/18 05:30 Neut % (Auto) 79.7 % (50.0-75.0) H 12/20/18 05:30 Lymph % (Auto) 14.9 % (20.0-40.0) L 12/20/18 05:30 [place] % (Auto) 5.3 % (0.0-10.0) 12/20/18 05:30 Eos % (Auto) 0.0 % (0.0-4.0) 12/20/18 05:30 Baso % (Auto) 0.1 % (0.0-2.0) 12/20/18 05:30 Neut # (Auto) 4.3 K/uL (1.8-7.0) 12/20/18 05:30 Lymph # (Auto) 0.8 K/uL (1.0-4.3) L 12/20/18 05:30 [place] # (Auto) 0.3 K/uL (0.0-0.8) 12/20/18 05:30 Eos # (Auto) 0.0 K/uL (0.0-0.7) 12/20/18 05:30 Baso # (Auto) 0.0 K/uL (0.0-0.2) 12/20/18 05:30 pCO2 50 mm/Hg (35-45) H 12/18/18 16:50 pO2 46 mm/Hg (80-100) L 12/18/18 16:50 HCO3 26.9 mmol/L (21-28) 12/18/18 16:50 ABG pH 7.37 (7.35-7.45) 12/18/18 16:50 ABG Total CO2 30.4 mmol/L (22-28) H 12/18/18 16:50 ABG O2 Saturation 85.6 % (95-98) L 12/18/18 16:50 ABG O2 Content 13.3 ML/dL (15-23) L 12/18/18 16:50 ABG Base Excess 2.9 mmol/L (-2.0-3.0) 12/18/18 16:50 ABG Hemoglobin 11.2 g/dL (11.7-17.4) L 12/18/18 16:50 ABG Carboxyhemoglobin 0.7 % (0.5-1.5) 12/18/18 16:50 POC ABG HHb (Measured) 14.2 % (0.0-5.0) H 12/18/18 16:50 ABG Methemoglobin 0.5 % (0.0-3.0) 12/18/18 16:50 ABG O2 Capacity 15.5 mL/dL (16-24) L 12/18/18 16:50 Gamaliel Test Yes 12/18/18 16:50 A-a O2 Difference 41.0 mm/Hg 12/18/18 16:50 Hgb O2 Saturation 84.6 % (95.0-98.0) L 12/18/18 16:50 Vent Mode Room air 12/18/18 16:50 FiO2 21.0 % 12/18/18 16:50 Sodium 138 mmol/l (132-148) 12/21/18 05:25 Potassium 4.3 MMOL/L (3.6-5.0) 12/21/18 05:25 Chloride 101 mmol/L (98-107) 12/21/18 05:25 Carbon Dioxide 29 mmol/L (22-30) 12/21/18 05:25 Anion Gap 12 (10-20) 12/21/18 05:25 BUN 23 mg/dl (7-17) H 12/21/18 05:25 Creatinine 0.7 mg/dl (0.7-1.2) 12/21/18 05:25 Est GFR ( Amer) > 60 12/21/18 05:25 Est GFR (Non-Af Amer) > 60 12/21/18 05:25 POC Glucose (mg/dL) 389 mg/dL (65-110) H 12/21/18 10:42 Random Glucose 178 mg/dL (65-105) H 12/21/18 05:25 Hemoglobin A1c 6.6 % (4.2-6.5) H 12/17/18 17:50 Calcium 8.8 mg/dL (8.4-10.2) 12/21/18 05:25 Total Bilirubin 0.3 mg/dl (0.2-1.3) 12/21/18 05:25 AST 21 U/L (14-36) 12/21/18 05:25 ALT 22 U/L (9-52) 12/21/18 05:25 Alkaline Phosphatase 67 U/L (38-126) 12/21/18 05:25 Troponin I < 0.0120 ng/mL (0.00-0.120) 12/18/18 11:30 NT-Pro-B Natriuret Pep 562 pg/ml (0-900) 12/17/18 17:50 Total Protein 7.1 G/DL (6.3-8.2) 12/21/18 05:25 Albumin 3.9 g/dL (3.5-5.0) 12/21/18 05:25 Globulin 3.2 gm/dL (2.2-3.9) 12/21/18 05:25 Albumin/Globulin Ratio 1.2 (1.0-2.1) 12/21/18 05:25 Triglycerides 143 mg/DL (0-149) 12/17/18 17:50 Cholesterol 98 mg/dL (0-199) 12/17/18 17:50 LDL Cholesterol Direct 40 mg/dL (0-129) 12/17/18 17:50 HDL Cholesterol 37 MG/DL (30-70) 12/17/18 17:50 Procalcitonin < 0.05 NG/ML (0.19-0.49) L 12/17/18 17:50 Influenza Typ A,B (EIA) Negative for flu a/b (NEGATIVE) 12/17/18 20:50 Grp A Beta Strep Ag Negative (NEGATIVE) 12/17/18 20:50 - Hospital Course Hospital Course: 63 yo female with history of HTN, COPD, fibromyalgia, migraines, chronic fatigue and MS 07/2018 s/p stent admitted to [facility] for evaluation and treatment of COPD exacerbation. Patient desaturated to 85% on room air. Patient was seen and examined this morning saturating at 93 on 3 L of oxygen via NC. Patient stable. Discharge home with home oxygen 1. COPD Exacerbation (acute on chronic) -home oxygen 2. Recent Hx of MS and s/p Stent - C/w ASA, Lipitor, Brilinta, Metoprolol 25 PO daily 3. Hypoxia ( acute on chronic) -Likely due to COPD 4. HTN (Chronic, Controlled) 5. Elevated HBA1C/New onset of DM-II - A1C 6.6 6. Chronic pain/fibromyalgia Discharge Exam - Head Exam Head Exam: ATRAUMATIC, NORMAL INSPECTION, NORMOCEPHALIC - Eye Exam Eye Exam: EOMI - ENT Exam ENT Exam: Mucous Membranes Moist - Respiratory Exam Respiratory Exam: Decreased Breath Sounds, Rhonchi - Cardiovascular Exam Cardiovascular Exam: REGULAR RHYTHM, +S1, +S2 - GI/Abdominal Exam GI & Abdominal Exam: Firm, Normal Bowel Sounds, Soft. absent: Distended, Guarding, Tenderness - Neurological Exam Neurological exam: Alert, Oriented x3 - Psychiatric Exam Psychiatric exam: Normal Mood - Skin Skin Exam: Dry Discharge Plan - Discharge Medications Prescriptions: Fluticasone/Salmeterol [Advair 250-50 Diskus] 1 each IH BID #1 blst.w.dev Methylprednisolone [Medrol Dose Pack (21 tabs)] 4 mg PO ASDIR #21 mg - Follow Up Plan Condition: FAIR Disposition: HOME/ ROUTINE Instructions: Low Cholesterol, Saturated Fat, and Trans Fat Diet , Oxygen Therapy, Adult (DC), Coronary Heart Disease (DC), Exacerbation of COPD (DC) Additional Instructions: follow up with primary MD 1 week Referrals: Venu Andrade MD [Family Provider] - Cole Abdi MD [Staff Provider] - <Nirmal Martin D - Last Filed: 12/21/18 16:20> Provider - Provider Date of Admission: 12/17/18 17:28 Attending physician: Laura Kwon DO Consults: 12/17/18 22:33 Cardiology Consult Routine Comment: Consulting Provider: Cole Abdi Consulting Physician: Cole Abdi Reason for Consult: S/p MS and Stent, Dyspnea 12/20/18 15:03 Pulmonology Consult Routine Comment: Consulting Provider: Howard Quintanilla I Consulting Physician: Howard Quintanilla I Reason for Consult: COPD exacerbation Hospital Course - Lab Results Lab Results: Micro Results 12/17/18 17:50 Blood-Venous Blood Culture - Preliminary NO GROWTH AFTER 3 DAYS 12/17/18 20:50 Throat Group A Strep Throat Culture - Final NO BETA STREP GROUP A ISOLATED. Most Recent Lab Values WBC 6.9 K/uL (4.8-10.8) 12/21/18 05:25 RBC 3.81 Mil/uL (3.80-5.20) 12/21/18 05:25 Hgb 11.5 g/dL (12.0-16.0) L 12/21/18 05:25 Hct 34.6 % (34.0-47.0) 12/21/18 05:25 MCV 90.9 fl (81.0-99.0) 12/21/18 05:25 MCH 30.1 pg (27.0-31.0) 12/21/18 05:25 MCHC 33.1 g/dL (33.0-37.0) 12/21/18 05:25 RDW 14.0 % (11.5-14.5) 12/21/18 05:25 Plt Count 269 K/uL (130-400) 12/21/18 05:25 MPV 7.0 fl (7.2-11.7) L 12/20/18 05:30 Neut % (Auto) 79.7 % (50.0-75.0) H 12/20/18 05:30 Lymph % (Auto) 14.9 % (20.0-40.0) L 12/20/18 05:30 [place] % (Auto) 5.3 % (0.0-10.0) 12/20/18 05:30 Eos % (Auto) 0.0 % (0.0-4.0) 12/20/18 05:30 Baso % (Auto) 0.1 % (0.0-2.0) 12/20/18 05:30 Neut # (Auto) 4.3 K/uL (1.8-7.0) 12/20/18 05:30 Lymph # (Auto) 0.8 K/uL (1.0-4.3) L 12/20/18 05:30 [place] # (Auto) 0.3 K/uL (0.0-0.8) 12/20/18 05:30 Eos # (Auto) 0.0 K/uL (0.0-0.7) 12/20/18 05:30 Baso # (Auto) 0.0 K/uL (0.0-0.2) 12/20/18 05:30 pCO2 50 mm/Hg (35-45) H 12/18/18 16:50 pO2 46 mm/Hg (80-100) L 12/18/18 16:50 HCO3 26.9 mmol/L (21-28) 12/18/18 16:50 ABG pH 7.37 (7.35-7.45) 12/18/18 16:50 ABG Total CO2 30.4 mmol/L (22-28) H 12/18/18 16:50 ABG O2 Saturation 85.6 % (95-98) L 12/18/18 16:50 ABG O2 Content 13.3 ML/dL (15-23) L 12/18/18 16:50 ABG Base Excess 2.9 mmol/L (-2.0-3.0) 12/18/18 16:50 ABG Hemoglobin 11.2 g/dL (11.7-17.4) L 12/18/18 16:50 ABG Carboxyhemoglobin 0.7 % (0.5-1.5) 12/18/18 16:50 POC ABG HHb (Measured) 14.2 % (0.0-5.0) H 12/18/18 16:50 ABG Methemoglobin 0.5 % (0.0-3.0) 12/18/18 16:50 ABG O2 Capacity 15.5 mL/dL (16-24) L 12/18/18 16:50 Gamaliel Test Yes 12/18/18 16:50 A-a O2 Difference 41.0 mm/Hg 12/18/18 16:50 Hgb O2 Saturation 84.6 % (95.0-98.0) L 12/18/18 16:50 Vent Mode Room air 12/18/18 16:50 FiO2 21.0 % 12/18/18 16:50 Sodium 138 mmol/l (132-148) 12/21/18 05:25 Potassium 4.3 MMOL/L (3.6-5.0) 12/21/18 05:25 Chloride 101 mmol/L (98-107) 12/21/18 05:25 Carbon Dioxide 29 mmol/L (22-30) 12/21/18 05:25 Anion Gap 12 (10-20) 12/21/18 05:25 BUN 23 mg/dl (7-17) H 12/21/18 05:25 Creatinine 0.7 mg/dl (0.7-1.2) 12/21/18 05:25 Est GFR ( Amer) > 60 12/21/18 05:25 Est GFR (Non-Af Amer) > 60 12/21/18 05:25 POC Glucose (mg/dL) 389 mg/dL (65-110) H 12/21/18 10:42 Random Glucose 178 mg/dL (65-105) H 12/21/18 05:25 Hemoglobin A1c 6.6 % (4.2-6.5) H 12/17/18 17:50 Calcium 8.8 mg/dL (8.4-10.2) 12/21/18 05:25 Total Bilirubin 0.3 mg/dl (0.2-1.3) 12/21/18 05:25 AST 21 U/L (14-36) 12/21/18 05:25 ALT 22 U/L (9-52) 12/21/18 05:25 Alkaline Phosphatase 67 U/L (38-126) 12/21/18 05:25 Troponin I < 0.0120 ng/mL (0.00-0.120) 12/18/18 11:30 NT-Pro-B Natriuret Pep 562 pg/ml (0-900) 12/17/18 17:50 Total Protein 7.1 G/DL (6.3-8.2) 12/21/18 05:25 Albumin 3.9 g/dL (3.5-5.0) 12/21/18 05:25 Globulin 3.2 gm/dL (2.2-3.9) 12/21/18 05:25 Albumin/Globulin Ratio 1.2 (1.0-2.1) 12/21/18 05:25 Triglycerides 143 mg/DL (0-149) 12/17/18 17:50 Cholesterol 98 mg/dL (0-199) 12/17/18 17:50 LDL Cholesterol Direct 40 mg/dL (0-129) 12/17/18 17:50 HDL Cholesterol 37 MG/DL (30-70) 12/17/18 17:50 Procalcitonin < 0.05 NG/ML (0.19-0.49) L 12/17/18 17:50 Influenza Typ A,B (EIA) Negative for flu a/b (NEGATIVE) 12/17/18 20:50 Grp A Beta Strep Ag Negative (NEGATIVE) 12/17/18 20:50 Attending/Attestation - Attestation I have personally seen and examined this patient.: Yes I have fully participated in the care of the patient.: Yes I have reviewed all pertinent clinical information, including history, physical exam and plan: Yes Notes (Text): 12/21/18 16:19 Patient seen and examined with resident. Case discussed and agreed with assessment. Patient discharged in stable condition. Home O2 arranged.
--- NOTE | 2018-12-21 15:49 | CON ---
DATE: 12/21/2018 HISTORY OF PRESENT ILLNESS: Ms. Alex is a 63-year-old female who was referred for pulmonary evaluation by . She was admitted via the emergency room without shortness of breath, exercise intolerance, and a diagnosis of acute exacerbation of chronic obstructive pulmonary disease. She indicates that she has had shortness of breath and cough with exercise intolerance for several days prior to presentation. She has a history of hypertension, chronic obstructive pulmonary disease, fibromyalgia with chronic persistent pain, fatigue, migraine headache, and myocardial infarction in 2018. She is status post stent placements and also has a history of hip replacement surgery. She is on multiple drugs including morphine pump and continues to smoke cigarettes, even though she denies smoking for the past several months. FAMILY HISTORY: Remarkable for parents who both had coronary artery disease. SOCIAL HISTORY: She smokes half-a-pack a day. Does not use illicit drugs except for morphine pump. Does not drink alcohol. Lives at home with her who continues to smoke cigarettes. PHYSICAL EXAMINATION: GENERAL: The patient is alert and oriented, appears to be in moderate distress on mild exertion. VITAL SIGNS: Blood pressure 154/75 with a pulse of 78, respiratory rate is 18. She is febrile, O2 sat 94% on nasal cannula oxygen. SKIN: Shows fair turgor. HEENT: Pupils equal, reactive to light and accommodation. Mouth shows fair hygiene. JVP flat. LUNGS: Poor aeration bilaterally with audible wheezing and rales. HEART: S1, S2. BREASTS: Normal. ABDOMEN: Soft, nontender, no organomegaly. EXTREMITIES: Show no edema or cyanosis. CENTRAL NERVOUS SYSTEM: Exam is grossly intact. LABORATORY DATA: Remarkable for WBC of 6.9, hemoglobin 11.5, platelet count of 69,000. Influenza negative, strep negative . Arterial blood gas, pH 7.37, pCO2 of 50, pO2 of 46, O2 saturation 85.6. Sodium 138, potassium 4.3, BUN 23, creatinine 0.7, serum glucose 178. Chest x-ray remarkable for no active pulmonary disease, COPD picture. IMPRESSION: Acute exacerbation of chronic obstructive pulmonary disease with respiratory failure and hypoxemia, history of coronary artery disease, history of fibromyalgia, history of hyperlipidemia, history of chronic pain. PLAN: Bronchodilator therapy, oxygen, continue IV steroids. We will obtain sputum for Gram stain and cultures. We would monitor the patient and need for outpatient home oxygen. The patient advised smoking cessation. We would also place the patient on Mucomyst to help expectorate specimen and sputum. Further therapy will depend on findings. Howard Quintanilla MD
[2018-12-21] MEDS ORDERED: Acetylcysteine 20% Inhal Soln (4ml) INH SCH (20:00)
--- NOTE | 2018-12-23 14:50 | PQF ---
PROVIDER RESPONSE TEXT: Patient is known to have COPD and was admitted with exacerbation on admission REVIEWER QUERY TEXT: Present On Admission It is unclear whether a diagnosis was present on admission. Your help is needed. Please clarify the POA status if you agree. Such as: -- Present on admission -- Not present on admission The patient's Clinical Indicators include: 12/[address] Quintanilla "respiratory failure and hypoxemia." Query created by: Fabienne Benitez on 12/22/2018 12:20 PM Electronically signed by: Nirmal Martin MD 12/23/2018 2:47 PM
== END 2018-12-21 14:40 | disposition home or self-care (01) | DRG 192 ==
LOC: H.ER 15:00 → H.ERHOLD 17:28 → H.MEDSURG1 23:46
PROVIDERS: ADMIT Student in an Organized Health Care Education/Training Program; ATTEND Student in an Organized Health Care Education/Training Program
PROC: 5A0945Z Assistance with Respiratory Ventilation, 24-96 Consecutive Hours (ICD-10-PCS; principal; 2018-12-18)
DX: J44.1 Chronic obstructive pulmonary disease with (acute) exacerbation (principal); E11.9 Type 2 diabetes mellitus without complications; G89.29 Other chronic pain; M79.7 Fibromyalgia; M06.9 Rheumatoid arthritis, unspecified; I25.2 Old myocardial infarction; I25.10 Atherosclerotic heart disease of native coronary artery without angina pectoris; Z95.5 Presence of coronary angioplasty implant and graft; F41.9 Anxiety disorder, unspecified; E78.00 Pure hypercholesterolemia, unspecified; Z79.82 Long term (current) use of aspirin; I10 Essential (primary) hypertension; Z96.649 Presence of unspecified artificial hip joint; E78.5 Hyperlipidemia, unspecified; F17.210 Nicotine dependence, cigarettes, uncomplicated; K59.00 Constipation, unspecified; Z79.02 Long term (current) use of antithrombotics/antiplatelets; R09.02 Hypoxemia

== ENCOUNTER 2018-12-22 02:07 | Inpatient (IN) | payer MEDICARE ==
[2018-12-22] MEDS ORDERED: Iohexol 240 (50 ml) PO ONE (02:26)
[2018-12-22] MEDS ORDERED: Morphine 4 MG/ML VIAL IVP ONE ×2 (02:27→03:22)
[2018-12-22] MEDS ORDERED: Iohexol 240 (50 ml) ONE (02:43)
[2018-12-22] MEDS ORDERED: Morphine 4 MG/ML VIAL ONE ×2 (02:43→03:23)
--- NOTE | 2018-12-22 02:43 | ED PDOC ---
HPI: Abdomen Time Seen by Provider: 12/22/18 02:13 Chief Complaint (Nursing): Abdominal Pain Chief Complaint (Provider): Abdominal Pain History Per: Patient History/Exam Limitations: no limitations Additional Complaint(s): 63 years old female with history of chronic pain, fibromyalgia, COPD, CAD and asthma presents to ER for evaluation of right flank pain. Patient was discharged yesterday after 4 day admission related to COPD. She reports having 3 bowel movements that she describes as loose but not diarrhea. Patient reports she believes pain is related to constipation. She denies any fever, nausea or vo miting. PMD: Venu Andrade Past Medical History Reviewed: Historical Data, Nursing Documentation, Vital Signs Vital Signs: Last Vital Signs Temp 98.5 F 12/22/18 02:12 Pulse 77 12/22/18 02:12 Resp 20 12/22/18 02:12 BP 167/113 H 12/22/18 02:12 Pulse Ox 95 12/22/18 02:12 - Medical History PMH: Anxiety, Asthma, CAD, COPD, Fibromyalgia, HTN, Hypercholesterolemia, Migraine Denies: HIV, Chronic Kidney Disease - Surgical History Surgical History: Cholecystectomy, Coronary Stent - Family History Family History: States: Unknown Family Hx - Social History Current smoker - smoking cessation education provided: Yes Alcohol: None Drugs: Denies - Immunization History Hx Tetanus Toxoid Vaccination: No Hx Influenza Vaccination: No Hx Pneumococcal Vaccination: No - Home Medications Home Medications: Ambulatory Orders Medication Instructions Recorded Acetaminophen/Butalbital/Caf 1 tab PO Q6 PRN 06/01/18 [Fioricet] Albuterol Sulfate [Ventolin Hfa] 2 puff IH Q4 PRN 06/01/18 Esomeprazole Magnesium [Nexium] 40 mg PO DAILY 06/01/18 Aspirin [Aspirin Chewable] 81 mg PO DAILY 30 Days chew 06/15/18 Ticagrelor [Brilinta] 90 mg PO BID 30 Days tab 06/15/18 Lisinopril [Zestril] 10 mg PO DAILY 30 Days tab 06/16/18 Albuterol/Ipratropium [Duoneb 3 3 ml IH Q6 PRN 12/17/18 mg/0.5 mg (3 ml) UD] Metoprolol Tartrate [Lopressor] 25 mg PO DAILY 12/17/18 Pregabalin [Lyrica] 75 mg PO Q8 12/17/18 Rosuvastatin Calcium [Crestor] 40 mg PO DAILY 12/17/18 Fluticasone/Salmeterol [Advair 1 each IH BID #1 blst.w.dev 12/21/18 250-50 Diskus] Methylprednisolone [Medrol Dose 4 mg PO ASDIR #21 mg 12/21/18 Pack (21 tabs)] - Allergies Allergies/Adverse Reactions: Allergies Allergy/AdvReac Type Severity Reaction Status Date / Time "hospital tape" Allergy RASH Uncoded 12/17/18 15:02 Review of Systems ROS Statement: Except As Marked, All Systems Reviewed And Found Negative Constitutional: Negative for: Fever Gastrointestinal: Positive for: Abdominal Pain, Other (loose stools). Negative for: Nausea, Vomiting, Diarrhea Physical Exam - Reviewed Nursing Documentation Reviewed: Yes Vital Signs Reviewed: Yes - Physical Exam Appears: Positive for: Uncomfortable Head Exam: Positive for: ATRAUMATIC, NORMOCEPHALIC Skin: Positive for: Normal Color, Warm, Dry Eye Exam: Positive for: Normal appearance, EOMI, PERRL Neck: Positive for: Normal, Painless ROM, Supple Cardiovascular/Chest: Positive for: Regular Rate, Rhythm. Negative for: Murmur Respiratory: Positive for: Normal Breath Sounds. Negative for: Respiratory Distress Gastrointestinal/Abdominal: Positive for: Tenderness (diffusely), Other (multipl abdominal wall scars. Large hematoma on left side of abdomen about 12cm x 10cm.) Back: Positive for: Normal Inspection. Negative for: L CVA Tenderness, R CVA Tenderness Extremity: Positive for: Normal ROM. Negative for: Pedal Edema, Deformity Neurological/Psych: Positive for: Awake, Alert, Oriented (x3) - Laboratory Results Result Diagrams: 12/22/18 02:51 12/22/18 02:51 - ECG O2 Sat by Pulse Oximetry: 95 (RA) Pulse Ox Interpretation: Normal Medical Decision Making Medical Decision Making: Time: 020 Initial Impression: 63 y/o female with abdominal pain Initial Plan: --CT Abdomen/Pelvis --EKG --CMP --Lactic acid --Lipase --CBC --Morphine 4 mg IVP --Iohexol 50 ml PO --Urinalysis 0635 CT Abdomen/Pelvis Findings: Mild cardiomegaly, unchanged. Acute intramuscular hematoma is noted within the thickness of the left rectus abdominis muscle measuring 12.4x5.3x13.7 cm in its largest transverse, anteroposterior and craniocaudal dimensions respectively. Associated contrast blush is noted within the hematoma suspicious for active bleeding or active contrast extravasation. An emergent surgical/endovascular consultation is recommended. Mild displacement of the adjacent fat. Moderate amount of fecal residue is noted in the large bowels. Atherosclerotic, tortuous ectatic aorta iliac arteries. Right hip arthroplasty metallic prosthesis is unremarkable. Prior cholecystectomy, unchanged. The liver is of uniform attenuation without mass or defect. There is no intra or extrahepatic biliary ductal dilatation. The spleen is normal. The pancreas is of normal contour and attenuation characteristics. There is no evidence of adrenal mass. Both kidneys demonstrate prompt and equal nephrograms. The kidneys are normal in size, shape and configuration. There is no evidence of renal or ureteral mass. No renal or ureteral calculi are identified. There is no hydroureter or hydronephrosis. No evidence for appendicitis. There is no bowel wall thickening. No evidence for small or large bowel obstruction. There is no evidence of abdominal ascites or lymphadenopathy. There is no evidence of intrinsic or extrinsic bladder mass. There is no pelvic ascites or lymphadenopathy. Images of the lung bases show no evidence of pleural or parenchymal mass. There are no pleural effusions. The bony structures are free of lytic or blastic lesions. IMPRESSION: Mild cardiomegaly, unchanged. Acute intramuscular hematoma is noted within the thickness of the left rectus abdominis muscle measuring 12.4x5.3x13.7 cm in its largest transverse, camacho posterior and craniocaudal dimensions respectively. Associated contrast blush is noted within the hematoma suspicious for active bleeding or active contrast extravasation. An emergent surgical/endovascular consultation is recommended. Mild displacement of the adjacent fat. Moderate amount of fecal residue is noted in the large bowels. Atherosclerotic, tortuous ectatic aorta iliac arteries. Right hip arthroplasty metallic prosthesis is unremarkable. Prior cholecystectomy, unchanged. 0650 Paging surgery consult. [address] Modesta Gomez, the surgical appliances salesperson, who will evaluate patient on bedside. Dr. Gomez will speak with Dr. Garcia. 0700 Patient signed out to Dr. Graham, pending surgery consult. ScribeAttestation: Documented byJessica Landry, acting as a scribe for Drew Rea MD. Provider ScribeAttestation: All medical record entries made by the Scribe were at my direction and personally dictated by me. I have reviewed the chart and agree that the record accurately reflects my personal performance of the history, physical exam, medical decision making, and the department course for this patient. I have also personally directed, reviewed, and agree with the discharge instructions and disposition. Disposition - Clinical Impression Clinical Impression: Abdominal pain - Patient ED Disposition Is Patient to be Admitted: Transfer of Care - Disposition Referrals: Venu Andrade MD [Primary Care Provider] - Disposition: Transfer of Care Disposition Time: 07:00 Condition: FAIR Forms: [employer] ([place]) Patient Signed Over To: Vinh Graham (pending surgery consult)
[2018-12-22 03:04] LABS: BASO % 0.3 % (0.0-2.0); HEMOGLOBIN 12.2 g/dL (12.0-16.0); LYMPH # 3.3 K/uL (1.0-4.3); LYMPH % 31.4 % (20.0-40.0); MEAN CELL VOLUME 91.2 fl (81.0-99.0); MEAN PLATELET VOLUME 6.7 fl (7.2-11.7); MONO # 0.9 K/uL (0.0-0.8); MONO % 8.5 % (0.0-10.0); NEUT # 6.4 K/uL (1.8-7.0); NEUT % 59.8 % (50.0-75.0); NRBC % 0.3 % (0.0-0.0); RBC 4.06 Mil/uL (3.80-5.20); RED CELL DISTRIBUTION WIDTH 14.3 % (11.5-14.5)
[2018-12-22 03:09] LABS: WHITE BLOOD COUNT 10.6 K/uL (4.8-10.8)
[2018-12-22 03:32] LABS: ALB/GLOB RATIO 1.3 (1.0-2.1); ALBUMIN 4.1 g/dL (3.5-5.0); ALT/SGPT 29 U/L (9-52); AST/SGOT 27 U/L (14-36); BLOOD UREA NITROGEN 22 mg/dl (7-17); CALCIUM 8.7 mg/dL (8.4-10.2); GFR NON-AFRICAN AMERICAN > 60; LIPASE 55 U/L (23-300)
[2018-12-22] MEDS ORDERED: Iohexol 300 100 ML IJ ONE (05:54)
[2018-12-22] MEDS ORDERED: Sodium Chloride 0.9% 50 ML IV ONE (05:54)
[2018-12-22] MEDS ORDERED: DiphenhydrAMINE 50 mg/ml Inj IV STA (06:33)
[2018-12-22] MEDS ORDERED: DiphenhydrAMINE 50 mg/ml Inj ONE (06:38)
[2018-12-22] MEDS ORDERED: Promethazine 25 MG in Sodium Chloride 0.9% 50 ML IVPB STA (06:39)
--- NOTE | 2018-12-22 07:25 | ED PDOC ---
- Laboratory Results Result Diagrams: 12/22/18 02:51 12/22/18 02:51 Lab Results: Total Bilirubin 0.4 mg/dl (0.2-1.3) 12/22/18 02:51 AST 27 U/L (14-36) 12/22/18 02:51 ALT 29 U/L (9-52) 12/22/18 02:51 Alkaline Phosphatase 70 U/L (38-126) 12/22/18 02:51 Total Protein 7.4 G/DL (6.3-8.2) 12/22/18 02:51 Albumin 4.1 g/dL (3.5-5.0) 12/22/18 02:51 Globulin 3.3 gm/dL (2.2-3.9) 12/22/18 02:51 Albumin/Globulin Ratio 1.3 (1.0-2.1) 12/22/18 02:51 Lipase 55 U/L (23-300) 12/22/18 02:51 - ECG O2 Sat by Pulse Oximetry: 95 (RA) Pulse Ox Interpretation: Normal - Progress ED Course And Treament: 2100: Stable. Spoke with Dr. Larson. She will speak with Dr. Martin who will do the admit. Surgery saw pt. and want her admitted for serial hemoglobins. Medical Decision Making Medical Decision Makin Patient endorsed to me by Dr. Rea, pending surgery consult and reevaluation. Scribe Attestation: Documented by Praveen Hairston, acting as a scribe for Vinh Graham MD Provider Scribe Attestation: All medical record entries made by the Scribe were at my direction and personally dictated by me. I have reviewed the chart and agree that the record accurately reflects my personal performance of the history, physical exam, medical decision making, and the department course for this patient. I have also personally directed, reviewed, and agree with the discharge instructions and disposition. Disposition - Clinical Impression Clinical Impression: Hematoma - POA Present On Arrival: None - Disposition Disposition: Hospitalized as Observation Patient Disposition Time: 09:00 Condition: FAIR
--- NOTE | 2018-12-22 08:29 | CP.PCM.CON ---
History of Present Illness - History of Present Illness History of Present Illness: 63F with PMHx of HTN, COPD, fibromyalgia, [place], presents to [facility] ED on 12/22/2017 with complaints of abdominal pain. Patient had been admitted on 12/17 for COPD exacerbation and was discharged on 12/21/18. Patient returned to ED with complaint s of abdominal pain that began yesterday. Patient had history of dry cough for the past couple of days. Upon examination patient was complaining of generalized abdominal pain. However, she is not peritoneal. She states coughing exacerbates pain. Denied headache/dizzines, nausea/vomiting, chest pain. PMH: as stated above PSH: Hip replacement All: NKDA Social Hx: Reports smoking 1/2 pack per day for >50years. Denies illicit drug use and alcohol use. Review of Systems - Review of Systems Review of Systems: as stated in HPI Past Patient History - Infectious Disease Hx of Infectious Diseases: None - Past Medical History & Family History Past Medical History?: Yes - Past Social History Alcohol: None Drugs: Denies - CARDIAC Hx Hypercholesterolemia: Yes Hx Hypertension: Yes - PULMONARY Hx Asthma: Yes Hx Chronic Obstructive Pulmonary Disease (COPD): Yes - NEUROLOGICAL Hx Migraine: Yes - HEENT Hx HEENT Problems: No - RENAL Hx Chronic Kidney Disease: No - ENDOCRINE/METABOLIC Hx Endocrine Disorders: No - HEMATOLOGICAL/ONCOLOGICAL Hx Human Immunodeficiency Virus (HIV): No - INTEGUMENTARY Hx Dermatological Problems: No - MUSCULOSKELETAL/RHEUMATOLOGICAL Hx Musculoskeletal Disorders: No - GASTROINTESTINAL Hx Gastrointestinal Disorders: No - GENITOURINARY/GYNECOLOGICAL Hx Genitourinary Disorders: No - PSYCHIATRIC Hx Anxiety: Yes - SURGICAL HISTORY Hx Cholecystectomy: Yes Hx Coronary Stent: Yes - ANESTHESIA Hx Anesthesia: Yes Hx Anesthesia Reactions: No Hx Malignant Hyperthermia: No Meds Allergies/Adverse Reactions: Allergies Allergy/AdvReac Type Severity Reaction Status Date / Time "hospital tape" Allergy RASH Uncoded 12/17/18 15:02 Results - Vital Signs Recent Vital Signs: Last Vital Signs Temp 98.5 F 12/22/18 02:12 Pulse 85 12/22/18 06:57 Resp 12 12/22/18 06:42 BP 132/90 12/22/18 06:42 Pulse Ox 95 12/22/18 07:24 - Labs Result Diagrams: 12/22/18 02:51 12/22/18 02:51 Labs: Laboratory Results - last 24 hr 12/22/18 12/22/18 12/22/18 02:51 02:51 02:51 WBC 10.6 D RBC 4.06 Hgb 12.2 Hct 37.0 MCV 91.2 MCH 30.0 MCHC 33.0 RDW 14.3 Plt Count 333 MPV 6.7 L Neut % (Auto) 59.8 Lymph % (Auto) 31.4 [place] % (Auto) 8.5 Eos % (Auto) 0.0 Baso % (Auto) 0.3 Neut # (Auto) 6.4 Lymph # (Auto) 3.3 [place] # (Auto) 0.9 H Eos # (Auto) 0.0 Baso # (Auto) 0.0 Sodium 136 Potassium 3.7 Chloride 99 Carbon Dioxide 30 Anion Gap 11 BUN 22 H Creatinine 0.7 Est GFR ( Amer) > 60 Est GFR (Non-Af Amer) > 60 Random Glucose 107 H Lactic Acid 1.5 Calcium 8.7 Total Bilirubin 0.4 AST 27 ALT 29 Alkaline Phosphatase 70 Total Protein 7.4 Albumin 4.1 Globulin 3.3 Albumin/Globulin Ratio 1.3 Lipase 55 Assessment & Plan - Assessment and Plan (Free Text) Assessment: 63F with intra abdominal wall hematoma with active extravasation on CT measuring 12.4x 5.0x 13.7cm Plan: -Patient hemodynamically stable -Monitor H/H Q6 -Recommend IR consult for possible IR embolization should patient's clinical status deteriorate -will follow -D/w Dr. Marie -Further recs per Dr. Marie/ Dr.Kofman Dominguez PGY3
--- NOTE | 2018-12-22 08:34 | CARD ---
APPROVED REPORT Date of service: 12/22/2018 EKG Measurement Heart [id number] ID [id number] <Conclusion> Normal sinus rhythm Septal infarct, age undetermined Abnormal ECG
--- NOTE | 2018-12-22 08:52 | CT ---
Date of service: 12/22/2018 PROCEDURE: CT Abdomen and Pelvis with contrast HISTORY: abd pain COMPARISON: Abdomen and pelvis CT without contrast 12/11/2018. TECHNIQUE: Following oral and intravenous contrast administration, a CT examination of the abdomen and pelvis was performed from the domes of the diaphragms to the symphysis pubis with reformatted datasets provided not only axial but also sagittal and coronal series. Contrast dose: Omnipaque 300, 90 cc Radiation dose: Total exam DLP = 357.2 mGy-cm. This CT exam was performed using one or more of the following dose reduction techniques: Automated exposure control, adjustment of the mA and/or kV according to patient size, and/or use of iterative reconstruction technique. FINDINGS: LOWER THORAX: There is mild cardiomegaly. Trace bilateral basilar dependent atelectasis reiterated. LIVER: Unremarkable. No gross lesion or ductal dilatation. GALLBLADDER AND BILE DUCTS: Postcholecystectomy changes reiterated. Related dilatation of the common bile duct is unchanged. PANCREAS: Unremarkable. No gross lesion or ductal dilatation. SPLEEN: Unremarkable. ADRENALS: Unremarkable. No mass. KIDNEYS AND URETERS: Unremarkable. No hydronephrosis. No solid mass. VASCULATURE: Unremarkable. No aortic aneurysm. Relatively extensive soft plaque scattered throughout the visualized abdominal aorta with occasional partially calcified components. BOWEL: There is prominent fecal loading throughout the large bowel primarily affecting proximal and middle colonic segments and mildly affecting the left hemicolon. No obstruction. No gross mural thickening. APPENDIX: No CT evidence of appendicitis. The appendix is not identified. For possible appendectomy. Oral contrast opacifies the cecum well. PERITONEUM: Unremarkable. No free fluid. No free air. LYMPH NODES: Unremarkable. No enlarged lymph nodes. BLADDER: Unremarkable. REPRODUCTIVE: Prior hysterectomy evident once again. BONES: Grade 1 spondylolisthesis L5-S1 on the basis of gross facet joint degenerative change. No definite spondylolysis. Prior right hip replacement prosthesis reiterated, unchanged in appearance. Neural stimulator identified at the right flank anterior abdominal wall with solitary lead extending posterior laterally to the right entering into upper lumbar central canal once again with postoperative change surrounding the generator now resolved. OTHER FINDINGS: Note is made of a moderate-sized intramuscular or submuscular hematoma affecting the lower abdomen left rectus musculature which previously was less than 1 cm anterior-posterior thickness. Small areas of hyper intensity may reflect active extravasation. Hematoma measures 10.9 x 4.5 x 11.3 cm (transverse by anteroposterior by superoinferior dimensions). IMPRESSION: 1. 11.3 cm intramuscular or submuscular hematoma at left rectus abdominus musculature at the lower abdomen. No hemoperitoneum. Trace active extravasation identified. Etiology unclear. Clinically correlate further. 2. Prominent retained fecal material throughout the large bowel. 3. Prior cholecystectomy reiterated as well as likely related dilatation of common bile duct. 4. Prior hysterectomy reiterated. 5. Other lesser findings as discussed above. Concordant preliminary report from [facility], 12/22/2018, 6:35 a.m..
[2018-12-22 09:16] LABS: INR 0.9; PROTHROMBIN TIME 10.2 Seconds (9.8-13.1)
[2018-12-22 09:44] LABS: PARTIAL THROMBOPLASTIN TIME 20.8 Seconds (25.6-37.1)
--- NOTE | 2018-12-22 09:44 | CP.PCM.HP ---
<Kori Hdz - Last Filed: 12/22/18 10:13> History of Present Illness - History of Present Illness History of Present Illness: Patient seen and evaluated with Dr. Martin 63 yo female with history of HTN, COPD, fibromyalgia, migraines, chronic fatigue and [place] 07/2018 s/p stent with recent discharge for COPD exacerbation is being admitted for observation after presenting with complaints of abdominal pain. Pt was found to have a 11.3cm intramuscular or submuscular hematoma at left rectus abdominus muscle. Surgical team evaluated the patient, and she is scheduled with IR for possible embolization today. PMH: HTN, COPD, fibromyalgia, migraines, chronic fatigue and [place] 07/2018 s/p s tent PSH: Hip replacement last year Allg: NKDA FH: Mother had HTN and from Heart attack in her 40's; Social Hx: Smokes 1/2 pack per day for >50years. Denies illicit drug use and alcohol use. ER Course: VS: 98.5 tmp, HR 77bpm, RR 20, 167/113- 132/90. Spo2 92 on 2 L of NC CBC: 20.3>11.2/35.4<370 PT-10.2, INR-0.9, PTT-20.8L s/p 10mg of morphine total CMP: unremarkable EKG: NSR Abd/Pelvic CT-11.3cm intramuscular or submuscular hematoma at left rectus abdominal musculature; no hemoperitoneum Present on Admission - Present on Admission Any Indicators Present on Admission: No Past Patient History - Infectious Disease Hx of Infectious Diseases: None - Past Medical History & Family History Past Medical History?: Yes - Past Social History Alcohol: None Drugs: Denies - CARDIAC Hx Hypercholesterolemia: Yes Hx Hypertension: Yes - PULMONARY Hx Asthma: Yes Hx Chronic Obstructive Pulmonary Disease (COPD): Yes - NEUROLOGICAL Hx Migraine: Yes - HEENT Hx HEENT Problems: No - RENAL Hx Chronic Kidney Disease: No - ENDOCRINE/METABOLIC Hx Endocrine Disorders: No - HEMATOLOGICAL/ONCOLOGICAL Hx Human Immunodeficiency Virus (HIV): No - INTEGUMENTARY Hx Dermatological Problems: No - MUSCULOSKELETAL/RHEUMATOLOGICAL Hx Musculoskeletal Disorders: No - GASTROINTESTINAL Hx Gastrointestinal Disorders: No - GENITOURINARY/GYNECOLOGICAL Hx Genitourinary Disorders: No - PSYCHIATRIC Hx Anxiety: Yes - SURGICAL HISTORY Hx Cholecystectomy: Yes Hx Coronary Stent: Yes - ANESTHESIA Hx Anesthesia: Yes Hx Anesthesia Reactions: No Hx Malignant Hyperthermia: No Meds Allergies/Adverse Reactions: Allergies Allergy/AdvReac Type Severity Reaction Status Date / Time "hospital tape" Allergy RASH Uncoded 12/17/18 15:02 Physical Exam - Constitutional Appears: Agitated Additional comments: writhing back in forth asking for pain medication; facial grimacing - Head Exam Head Exam: ATRAUMATIC - Eye Exam Eye Exam: EOMI - ENT Exam ENT Exam: Mucous Membranes Dry - Respiratory Exam Respiratory Exam: Decreased Breath Sounds. absent: Respiratory Distress - Cardiovascular Exam Cardiovascular Exam: +S1, +S2 Additional comments: bordeline tachycardia - GI/Abdominal Exam GI & Abdominal Exam: Tenderness Additional comments: large 13 x 11cm area of ecchymosis with tenderness and some guarding - Psychiatric Exam Psychiatric exam: Agitated - Skin Skin Exam: Dry Additional comments: scattered areas of ecchymosis on left arm Results - Vital Signs Recent Vital Signs: Last Vital Signs Temp 98.6 F 12/22/18 09:42 Pulse 100 H 12/22/18 09:42 Resp 20 12/22/18 09:42 BP 128/76 12/22/18 09:42 Pulse Ox 98 12/22/18 09:42 - Labs Result Diagrams: 12/22/18 09:00 12/22/18 02:51 Labs: Laboratory Results - last 24 hr 12/22/18 12/22/18 12/22/18 02:51 02:51 02:51 WBC 10.6 D RBC 4.06 Hgb 12.2 Hct 37.0 MCV 91.2 MCH 30.0 MCHC 33.0 RDW 14.3 Plt Count 333 MPV 6.7 L Neut % (Auto) 59.8 Lymph % (Auto) 31.4 [place] % (Auto) 8.5 Eos % (Auto) 0.0 Baso % (Auto) 0.3 Neut # (Auto) 6.4 Lymph # (Auto) 3.3 [place] # (Auto) 0.9 H Eos # (Auto) 0.0 Baso # (Auto) 0.0 PT INR Sodium 136 Potassium 3.7 Chloride 99 Carbon Dioxide 30 Anion Gap 11 BUN 22 H Creatinine 0.7 Est GFR ( Amer) > 60 Est GFR (Non-Af Amer) > 60 Random Glucose 107 H Lactic Acid 1.5 Calcium 8.7 Total Bilirubin 0.4 AST 27 ALT 29 Alkaline Phosphatase 70 Total Protein 7.4 Albumin 4.1 Globulin 3.3 Albumin/Globulin Ratio 1.3 Lipase 55 12/22/18 08:00 WBC RBC Hgb Hct MCV MCH MCHC RDW Plt Count MPV Neut % (Auto) Lymph % (Auto) [place] % (Auto) Eos % (Auto) Baso % (Auto) Neut # (Auto) Lymph # (Auto) [place] # (Auto) Eos # (Auto) Baso # (Auto) PT 10.2 INR 0.9 Sodium Potassium Chloride Carbon Dioxide Anion Gap BUN Creatinine Est GFR ( Amer) Est GFR (Non-Af Amer) Random Glucose Lactic Acid Calcium Total Bilirubin AST ALT Alkaline Phosphatase Total Protein Albumin Globulin Albumin/Globulin Ratio Lipase Assessment & Plan - Assessment and Plan (Free Text) Assessment: 63 yo female with history of HTN, COPD, fibromyalgia, migraines, chronic fatigue and [place] 07/2018 s/p stent with recent discharge for COPD exacerbation admitted for further management of 11.3cm intramuscular or submuscular hematoma at left rectus abdominus muscle Abdominal wall hematoma -Surgical team recs appreciated -s/p 10mg morphine -IR today for possible embolizaton COPD with hypoxemia (chronic) -c/w oxygen via nasal canula to maintain 02 sat b/w 92-94% Recent Hx of GA and s/p Stent -hold meds HTN (Chronic, Controlled) -hold meds Newly dx DM-II - A1C 6.6 Chronic pain/fibromyalgia -hold meds <Nirmal Martin D - Last Filed: 12/22/18 13:42> Results - Vital Signs Recent Vital Signs: Last Vital Signs Temp 98.7 F 12/22/18 12:25 Pulse 117 H 12/22/18 12:25 Resp 20 12/22/18 12:25 BP 94/62 L 12/22/18 12:25 Pulse Ox 98 12/22/18 12:25 - Labs Result Diagrams: 12/22/18 10:20 12/22/18 02:51 Labs: Laboratory Results - last 24 hr 12/22/18 12/22/18 12/22/18 02:51 02:51 02:51 WBC 10.6 D RBC 4.06 Hgb 12.2 Hct 37.0 MCV 91.2 MCH 30.0 MCHC 33.0 RDW 14.3 Plt Count 333 MPV 6.7 L Neut % (Auto) 59.8 Lymph % (Auto) 31.4 [place] % (Auto) 8.5 Eos % (Auto) 0.0 Baso % (Auto) 0.3 Neut # (Auto) 6.4 Lymph # (Auto) 3.3 [place] # (Auto) 0.9 H Eos # (Auto) 0.0 Baso # (Auto) 0.0 PT INR APTT Sodium 136 Potassium 3.7 Chloride 99 Carbon Dioxide 30 Anion Gap 11 BUN 22 H Creatinine 0.7 Est GFR ( Amer) > 60 Est GFR (Non-Af Amer) > 60 Random Glucose 107 H Lactic Acid 1.5 Calcium 8.7 Total Bilirubin 0.4 AST 27 ALT 29 Alkaline Phosphatase 70 Total Protein 7.4 Albumin 4.1 Globulin 3.3 Albumin/Globulin Ratio 1.3 Lipase 55 12/22/18 12/22/18 12/22/18 08:00 09:00 10:20 WBC 20.3 H D 19.6 H RBC 3.82 3.44 L Hgb 11.2 L 10.2 L Hct 35.4 31.5 L MCV 92.7 91.4 MCH 29.2 29.6 MCHC 31.5 L 32.4 L RDW 14.4 14.0 Plt Count 370 371 MPV 7.2 Neut % (Auto) 72.3 Lymph % (Auto) 20.5 [place] % (Auto) 7.0 Eos % (Auto) 0.0 Baso % (Auto) 0.2 Neut # (Auto) 14.7 H Lymph # (Auto) 4.1 [place] # (Auto) 1.4 H Eos # (Auto) 0.0 Baso # (Auto) 0.0 PT 10.2 INR 0.9 APTT 20.8 L Sodium Potassium Chloride Carbon Dioxide Anion Gap BUN Creatinine Est GFR ( Amer) Est GFR (Non-Af Amer) Random Glucose Lactic Acid Calcium Total Bilirubin AST ALT Alkaline Phosphatase Total Protein Albumin Globulin Albumin/Globulin Ratio Lipase Attending/Attestation - Attestation I have personally seen and examined this patient.: Yes I have fully participated in the care of the patient.: Yes I have reviewed all pertinent clinical information: Yes Notes (Text): 12/22/18 13:42 t seen and examined with resident. Case discussed and agreed with assessment and plan.
[2018-12-22 09:47] LABS: BASO % 0.2 % (0.0-2.0); HEMOGLOBIN 11.2 g/dL (12.0-16.0); LYMPH # 4.1 K/uL (1.0-4.3); LYMPH % 20.5 % (20.0-40.0); MEAN CELL VOLUME 92.7 fl (81.0-99.0); MEAN CORPUSCULAR HEMOGLOBIN 29.2 pg (27.0-31.0); MEAN CORPUSCULAR HGB CONC 31.5 g/dL (33.0-37.0); MEAN PLATELET VOLUME 7.2 fl (7.2-11.7); MONO # 1.4 K/uL (0.0-0.8); NEUT # 14.7 K/uL (1.8-7.0); NEUT % 72.3 % (50.0-75.0); NRBC % 0.2 % (0.0-0.0); RBC 3.82 Mil/uL (3.80-5.20); RED CELL DISTRIBUTION WIDTH 14.4 % (11.5-14.5); WHITE BLOOD COUNT 20.3 K/uL (4.8-10.8)
[2018-12-22] MEDS ORDERED: Albuterol HFA 90 mcg/actuation (8 g) IH PRN (09:50)
[2018-12-22] MEDS ORDERED: Albuterol-Ipratrop 3 mg / 0.5 (3 ml) UD IH PRN (09:50)
[2018-12-22] MEDS: FLUTICASONE PROPION/SALMETEROL 113MCG/14MCG 60 PUFF IH SCH ×2 (10:46→17:52)
[2018-12-22 12:39] LABS: HEMOGLOBIN 10.2 g/dL (12.0-16.0); MEAN CELL VOLUME 91.4 fl (81.0-99.0); MEAN CORPUSCULAR HEMOGLOBIN 29.6 pg (27.0-31.0); MEAN CORPUSCULAR HGB CONC 32.4 g/dL (33.0-37.0); PLATELET COUNT 371 K/uL (130-400); RBC 3.44 Mil/uL (3.80-5.20); WHITE BLOOD COUNT 19.6 K/uL (4.8-10.8)
[2018-12-22] MEDS ORDERED: Sodium Chloride 0.9% 1,000 ML IV SCH (12:45)
[2018-12-22] MEDS: Sodium Chloride 0.9% 1,000 ML IV SCH ×2 (12:51→16:18)
[2018-12-22 13:32] LABS: MEAN CELL VOLUME 91.5 fl (81.0-99.0); MEAN CORPUSCULAR HEMOGLOBIN 29.6 pg (27.0-31.0); MEAN CORPUSCULAR HGB CONC 32.4 g/dL (33.0-37.0); RBC 3.38 Mil/uL (3.80-5.20); RED CELL DISTRIBUTION WIDTH 14.1 % (11.5-14.5); WHITE BLOOD COUNT 18.1 K/uL (4.8-10.8)
[2018-12-22 13:44] LABS: PROTHROMBIN TIME 11.6 Seconds (9.8-13.1)
[2018-12-22 13:47] LABS: PARTIAL THROMBOPLASTIN TIME 22.2 Seconds (25.6-37.1)
[2018-12-22] MEDS: HYDROmorphone 0.5 mg/0.5 ml ISec IVP PRN ×2 (14:04→22:34)
[2018-12-22 15:02] LABS: HYPOCHROMIC SLIGHT; LYMPHOCYTE 22 % (20-50); METAMYELOCYTE 1 % (0-0); MONOCYTE 7 % (0-10); MYELOCYTE 2 % (0-0); NEUTROPHIL 68 % (42-75); PLATELET ESTIMATE NORMAL (NORMAL); TOTAL CELLS COUNTED 100
[2018-12-22 15:03] LABS: OVALOCYTES SLIGHT; TARGET CELLS SLIGHT
[2018-12-22 21:28] LABS: HEMOGLOBIN 9.1 g/dL (12.0-16.0); MEAN CELL VOLUME 90.8 fl (81.0-99.0); MEAN CORPUSCULAR HEMOGLOBIN 30.2 pg (27.0-31.0); MEAN CORPUSCULAR HGB CONC 33.2 g/dL (33.0-37.0); RBC 3.02 Mil/uL (3.80-5.20); WHITE BLOOD COUNT 16.3 K/uL (4.8-10.8)
[2018-12-23] MEDS: HYDROmorphone 0.5 mg/0.5 ml ISec IVP PRN (04:14)
[2018-12-23 07:06] LABS: INR 1.2; PROTHROMBIN TIME 13.5 Seconds (9.8-13.1)
[2018-12-23 07:09] LABS: PARTIAL THROMBOPLASTIN TIME 23.6 Seconds (25.6-37.1)
[2018-12-23 07:11] LABS: BASO % 0.1 % (0.0-2.0); HEMOGLOBIN 9.4 g/dL (12.0-16.0); LYMPH # 3.3 K/uL (1.0-4.3); LYMPH % 20.5 % (20.0-40.0); MEAN CELL VOLUME 91.5 fl (81.0-99.0); MEAN CORPUSCULAR HGB CONC 32.8 g/dL (33.0-37.0); MEAN PLATELET VOLUME 7.7 fl (7.2-11.7); MONO # 0.9 K/uL (0.0-0.8); MONO % 5.5 % (0.0-10.0); NEUT # 11.7 K/uL (1.8-7.0); NEUT % 73.9 % (50.0-75.0); NRBC % 0.4 % (0.0-0.0); RBC 3.13 Mil/uL (3.80-5.20); RED CELL DISTRIBUTION WIDTH 14.1 % (11.5-14.5); WHITE BLOOD COUNT 15.9 K/uL (4.8-10.8)
[2018-12-23 07:26] LABS: BLOOD UREA NITROGEN 36 mg/dl (7-17); CALCIUM 8.3 mg/dL (8.4-10.2); GFR NON-AFRICAN AMERICAN > 60
--- NOTE | 2018-12-23 08:50 | CP.PCM.CON ---
History of Present Illness - History of Present Illness History of Present Illness: 63 yo woman w/ left abdominal wall hematoma, history of chronic pain with IT morphine + clonidine pump, is referred for pain management. The reservoir is in the right abdominal wall and is not affected by her current situation. She st ates that pump is working fine and that she's due for a refill later this month. She's a poor historian and cannot give me the names and contact info of her pain specialist. The pain in the left abdominal wall is better today. She was able to have a bowel movement and states that it made her feel better. At home, she doesn't take additional PO opioids on top of the IT pump infusion. She denies trauma to the abdomen. She does have ecchymotic lesions throughout her body, not just the left abdomen. She's scheduled to undergo IR procedure today. Past Patient History - Infectious Disease Hx of Infectious Diseases: None - Past Medical History & Family History Past Medical History?: Yes - Past Social History Smoking Status: Former Smoker - CARDIAC Hx Hypercholesterolemia: Yes Hx Hypertension: Yes - PULMONARY Hx Asthma: Yes Hx Chronic Obstructive Pulmonary Disease (COPD): Yes - NEUROLOGICAL Hx Migraine: Yes - HEENT Hx HEENT Problems: No - RENAL Hx Chronic Kidney Disease: No - ENDOCRINE/METABOLIC Hx Endocrine Disorders: No - HEMATOLOGICAL/ONCOLOGICAL Hx Human Immunodeficiency Virus (HIV): No - INTEGUMENTARY Hx Dermatological Problems: No - MUSCULOSKELETAL/RHEUMATOLOGICAL Hx Musculoskeletal Disorders: No Hx Falls: No - GASTROINTESTINAL Hx Gastrointestinal Disorders: No - GENITOURINARY/GYNECOLOGICAL Hx Genitourinary Disorders: No - PSYCHIATRIC Hx Anxiety: Yes Hx Substance Use: No - SURGICAL HISTORY Hx Cholecystectomy: Yes Hx Coronary Stent: Yes - ANESTHESIA Hx Anesthesia: Yes Hx Anesthesia Reactions: No Hx Malignant Hyperthermia: No Meds Allergies/Adverse Reactions: Allergies Allergy/AdvReac Type Severity Reaction Status Date / Time "hospital tape" Allergy RASH Uncoded 12/17/18 15:02 - Medications Medications: Current Medications Albuterol (Ventolin Hfa 90 Mcg/Actuation (8 G)) 2 puff IH Q4 PRN PRN Reason: Shortness of Breath Albuterol/Ipratropium (Duoneb 3 Mg/0.5 Mg (3 Ml) Ud) 3 ml IH Q6 PRN PRN Reason: Shortness of Breath Sodium Chloride (Sodium Chloride 0.9%) 1,000 mls @ 100 mls/hr IV .Q10H [facility] Stop: 12/23/18 12:33 Last Admin: 12/22/18 16:18 Dose: 100 mls/hr Methylprednisolone (Medrol) 4 mg PO BID [facility] Last Admin: 12/22/18 17:54 Dose: Not Given Morphine Sulfate (Morphine) 4 mg IVP Q6 PRN PRN Reason: Pain, severe (8-10) Last Admin: 12/22/18 12:53 Dose: 4 mg Ticagrelor (Brilinta) 90 mg PO BID [facility] Last Admin: 12/22/18 17:54 Dose: Not Given Physical Exam - GI/Abdominal Exam Additional comments: Ecchymosis over abdomen wall diffusely, the largest over the left abdomen. Tender to touch. Results - Vital Signs Recent Vital Signs: Last Vital Signs Temp 97.9 F 12/23/18 08:40 Pulse 89 12/23/18 08:40 Resp 20 12/23/18 08:40 BP 100/63 12/23/18 08:40 Pulse Ox 93 L 12/23/18 08:40 - Labs Result Diagrams: 12/23/18 06:35 12/23/18 06:35 Labs: Laboratory Results - last 24 hr 12/22/18 12/22/18 12/22/18 08:00 09:00 10:20 WBC 20.3 H D 19.6 H RBC 3.82 3.44 L Hgb 11.2 L 10.2 L Hct 35.4 31.5 L MCV 92.7 91.4 MCH 29.2 29.6 MCHC 31.5 L 32.4 L RDW 14.4 14.0 Plt Count 370 371 MPV 7.2 Neut % (Auto) 72.3 Lymph % (Auto) 20.5 [place] % (Auto) 7.0 Eos % (Auto) 0.0 Baso % (Auto) 0.2 Neut # (Auto) 14.7 H Lymph # (Auto) 4.1 [place] # (Auto) 1.4 H Eos # (Auto) 0.0 Baso # (Auto) 0.0 Neutrophils % (Manual) 68 Lymphocytes % (Manual) 22 Monocytes % (Manual) 7 Metamyelocytes % 1 H Myelocytes % 2 H Platelet Estimate Normal Hypochromasia (manual) Slight Target Cells Slight Ovalocytes Slight PT 10.2 INR 0.9 APTT 20.8 L Sodium Potassium Chloride Carbon Dioxide Anion Gap BUN Creatinine Est GFR ( Amer) Est GFR (Non-Af Amer) Random Glucose Calcium Blood Type Antibody Screen Crossmatch BBK History Checked 12/22/18 12/22/18 12/22/18 13:10 13:10 14:20 WBC 18.1 H RBC 3.38 L Hgb 10.0 L Hct 30.9 L MCV 91.5 MCH 29.6 MCHC 32.4 L RDW 14.1 Plt Count 371 MPV Neut % (Auto) Lymph % (Auto) [place] % (Auto) Eos % (Auto) Baso % (Auto) Neut # (Auto) Lymph # (Auto) [place] # (Auto) Eos # (Auto) Baso # (Auto) Neutrophils % (Manual) Lymphocytes % (Manual) Monocytes % (Manual) Metamyelocytes % Myelocytes % Platelet Estimate Hypochromasia (manual) Target Cells Ovalocytes PT 11.6 INR 1.0 APTT 22.2 L Sodium Potassium Chloride Carbon Dioxide Anion Gap BUN Creatinine Est GFR ( Amer) Est GFR (Non-Af Amer) Random Glucose Calcium Blood Type O POSITIVE Antibody Screen Negative Crossmatch See Detail BBK History Checked Patient has bt 12/22/18 12/23/18 12/23/18 21:00 06:35 06:35 WBC 16.3 H 15.9 H RBC 3.02 L 3.13 L Hgb 9.1 L 9.4 L Hct 27.4 L 28.7 L MCV 90.8 91.5 MCH 30.2 30.0 MCHC 33.2 32.8 L RDW 14.0 14.1 Plt Count 308 322 MPV 7.7 Neut % (Auto) 73.9 Lymph % (Auto) 20.5 [place] % (Auto) 5.5 Eos % (Auto) 0.0 Baso % (Auto) 0.1 Neut # (Auto) 11.7 H Lymph # (Auto) 3.3 [place] # (Auto) 0.9 H Eos # (Auto) 0.0 Baso # (Auto) 0.0 Neutrophils % (Manual) Lymphocytes % (Manual) Monocytes % (Manual) Metamyelocytes % Myelocytes % Platelet Estimate Hypochromasia (manual) Target Cells Ovalocytes PT 13.5 H INR 1.2 APTT 23.6 L Sodium Potassium Chloride Carbon Dioxide Anion Gap BUN Creatinine Est GFR ( Amer) Est GFR (Non-Af Amer) Random Glucose Calcium Blood Type Antibody Screen Crossmatch BBK History Checked 12/23/18 06:35 WBC RBC Hgb Hct MCV MCH MCHC RDW Plt Count MPV Neut % (Auto) Lymph % (Auto) [place] % (Auto) Eos % (Auto) Baso % (Auto) Neut # (Auto) Lymph # (Auto) [place] # (Auto) Eos # (Auto) Baso # (Auto) Neutrophils % (Manual) Lymphocytes % (Manual) Monocytes % (Manual) Metamyelocytes % Myelocytes % Platelet Estimate Hypochromasia (manual) Target Cells Ovalocytes PT INR APTT Sodium 137 Potassium 3.9 Chloride 100 Carbon Dioxide 27 Anion Gap 14 BUN 36 H Creatinine 0.8 Est GFR ( Amer) > 60 Est GFR (Non-Af Amer) > 60 Random Glucose 181 H Calcium 8.3 L Blood Type Antibody Screen Crossmatch BBK History Checked Assessment & Plan (1) Hematoma Assessment and Plan: 63 yo woman w/ chronic pain on IT pump. Infusion rate is unknown, but pump is working appropriately according to the patient. She's not due for a refill until later this month. Will keep the an IV Morphine PRN order for now, although it's not likely to approximate what the patient is already getting through the IT pump. - continue Morphine IV PRN - IT pump ongoing, patient to have it refilled after discharge - care per surgery, IR Status: Acute
[2018-12-23 08:59] LABS: SQUAMOUS EPITHIAL 1 /hpf (0-5); URINE BILIRUBIN NEGATIVE (NEGATIVE); URINE BLOOD NEGATIVE (NEGATIVE); URINE CLARITY CLOUDY (Clear); URINE COLOR AMBER (YELLOW); URINE GLUCOSE (UA) NEG (NEGATIVE); URINE LEUKOCYTE ESTERASE NEG Leu/uL (Negative); URINE PROTEIN 30 mg/dL (NEGATIVE)
[2018-12-23 09:01] LABS: URINE BACTERIA RARE (<OCC)
[2018-12-23] MEDS: FLUTICASONE PROPION/SALMETEROL 113MCG/14MCG 60 PUFF IH SCH ×2 (09:58→18:35)
[2018-12-23] MEDS: Sodium Chloride 0.9% 1,000 ML IV SCH ×2 (09:59→10:01)
--- NOTE | 2018-12-23 10:33 | CP.PCM.PN ---
<Kori Hdz - Last Filed: 12/23/18 11:02> Subjective - Date & Time of Evaluation Date of Evaluation: 12/23/18 Time of Evaluation: 09:46 - Subjective Subjective: Patient was seen and examined this morning at bedside. She reports her abdominal pain has decreased after having a large bowel movement s/p two fleet enemas rec eived yesterday. She denies any lightheadedness, cp or shortness of breath at this time. Objective - Vital Signs/Intake and Output Vital Signs (last 24 hours): Temp Pulse Resp BP Pulse Ox 97.9 F 89 20 100/63 93 L 12/23/18 08:40 12/23/18 08:40 12/23/18 08:40 12/23/18 08:40 12/23/18 08:40 - Medications Medications: Current Medications Albuterol (Ventolin Hfa 90 Mcg/Actuation (8 G)) 2 puff IH Q4 PRN PRN Reason: Shortness of Breath Albuterol/Ipratropium (Duoneb 3 Mg/0.5 Mg (3 Ml) Ud) 3 ml IH Q6 PRN PRN Reason: Shortness of Breath Sodium Chloride (Sodium Chloride 0.9%) 1,000 mls @ 100 mls/hr IV .Q10H [facility] Stop: 12/23/18 12:33 Last Admin: 12/23/18 10:01 Dose: 100 mls/hr Methylprednisolone (Medrol) 4 mg PO BID [facility] Last Admin: 12/23/18 09:57 Dose: 4 mg Morphine Sulfate (Morphine) 4 mg IVP Q6 PRN PRN Reason: Pain, severe (8-10) Last Admin: 12/22/18 12:53 Dose: 4 mg Ticagrelor (Brilinta) 90 mg PO BID [facility] Last Admin: 12/22/18 17:54 Dose: Not Given - Labs Labs: 12/23/18 06:35 12/23/18 06:35 PT 13.5 Seconds (9.8-13.1) H 12/23/18 06:35 INR 1.2 12/23/18 06:35 APTT 23.6 Seconds (25.6-37.1) L 12/23/18 06:35 - Head Exam Head Exam: ATRAUMATIC - Eye Exam Eye Exam: EOMI - ENT Exam ENT Exam: Mucous Membranes Dry - Respiratory Exam Respiratory Exam: Decreased Breath Sounds - Cardiovascular Exam Cardiovascular Exam: REGULAR RHYTHM, +S1, +S2 - GI/Abdominal Exam GI & Abdominal Exam: Tenderness Additional comments: ecchymosis in left flank as well as over the epigastric area with epigastric tenderness - Neurological Exam Neurological Exam: Alert - Skin Additional comments: scattered ecchymosis on the arms Assessment and Plan - Assessment and Plan (Free Text) Assessment: 63 yo female with history of HTN, COPD, fibromyalgia, migraines, chronic fatigue and DC 07/2018 s/p stent with recent discharge for COPD exacerbation admitted for further management of 11.3cm intramuscular or submuscular hematoma at left rectus abdominus muscle Abdominal wall hematoma -Dr. Atkins's recommendation appreciated -C/w serial H & H monitoring. -As per Dr. Atkins if Hgb <8, transfuse, repeat chest CT & abdomen with contrast & reconsult IR -C/w pain management as recommended by Dr. Karimi- IV morphine PRN COPD with hypoxemia (chronic) -c/w oxygen via nasal canula to maintain 02 sat b/w 88-92% -C/w Alb Q4 prn -C/w Dooneb Q6 prn -C/w Salumedrol 3 mg PO BID Recent Hx of DC and s/p Stent -hold meds HTN (Chronic, Controlled) -hold meds Newly dx DM-II - A1C 6.6 Chronic pain/fibromyalgia -morphine prn <Argelia Stewart - Last Filed: 12/23/18 18:49> Objective - Vital Signs/Intake and Output Vital Signs (last 24 hours): Temp Pulse Resp BP Pulse Ox 98.5 F 84 18 94/65 L 91 L 12/23/18 16:05 12/23/18 16:05 12/23/18 16:05 12/23/18 16:05 12/23/18 16:05 - Medications Medications: Current Medications Albuterol (Ventolin Hfa 90 Mcg/Actuation (8 G)) 2 puff IH Q4 PRN PRN Reason: Shortness of Breath Albuterol/Ipratropium (Duoneb 3 Mg/0.5 Mg (3 Ml) Ud) 3 ml IH Q6 PRN PRN Reason: Shortness of Breath Docusate Sodium (Colace) 200 mg PO DAILY [facility] Last Admin: 12/23/18 13:38 Dose: 200 mg Methylprednisolone (Medrol) 4 mg PO BID [facility] Last Admin: 12/23/18 17:08 Dose: 4 mg Morphine Sulfate (Morphine) 4 mg IVP Q6 PRN PRN Reason: Pain, severe (8-10) Last Admin: 12/22/18 12:53 Dose: 4 mg Ticagrelor (Brilinta) 90 mg PO BID [facility] Last Admin: 12/22/18 17:54 Dose: Not Given - Labs Labs: 12/23/18 06:35 12/23/18 06:35 PT 13.5 Seconds (9.8-13.1) H 12/23/18 06:35 INR 1.2 12/23/18 06:35 APTT 23.6 Seconds (25.6-37.1) L 12/23/18 06:35 Attending/Attestation - Attestation I have personally seen and examined this patient.: Yes I have fully participated in the care of the patient.: Yes I have reviewed all pertinent clinical information, including history, physical exam and plan: Yes Notes (Text): Abd Wall Hematoma/Rectus Sheath Hematoma Acute Blood Loss Anemia likely from extravasation of blood into abd wall Chronic COPD Constipation -IR consulted for poss Embolization due to noted extravasation -Dr Atkins reviewed case , not feasible, multiple areas , rec to monitor H/H - Surgery consulted - Pain mgt - monitor H/H -cont Oxygen at 2 liters - Duoneb prn - cont Medrol 4 mg bid - hold Brilinta - Lactulose daily, Colace, Fleet prn
--- NOTE | 2018-12-23 10:48 | CP.PCM.PN ---
<Juan RMary Kay-Kody - Last Filed: 12/23/18 10:45> Subjective - Date & Time of Evaluation Date of Evaluation: 12/23/18 Time of Evaluation: 10:45 - Subjective Subjective: Surgery: Dr. Marie Patient states her abdomen feels better today. She denies n/v/f/c. She denies SOB, dizziness. She thinks the bruising on her abdomen in improving. Objective - Vital Signs/Intake and Output Vital Signs (last 24 hours): Temp Pulse Resp BP Pulse Ox 97.9 F 89 20 100/63 93 L 12/23/18 08:40 12/23/18 08:40 12/23/18 08:40 12/23/18 08:40 12/23/18 08:40 - Medications Medications: Current Medications Albuterol (Ventolin Hfa 90 Mcg/Actuation (8 G)) 2 puff IH Q4 PRN PRN Reason: Shortness of Breath Albuterol/Ipratropium (Duoneb 3 Mg/0.5 Mg (3 Ml) Ud) 3 ml IH Q6 PRN PRN Reason: Shortness of Breath Sodium Chloride (Sodium Chloride 0.9%) 1,000 mls @ 100 mls/hr IV .Q10H [facility] Stop: 12/23/18 12:33 Last Admin: 12/23/18 10:01 Dose: 100 mls/hr Methylprednisolone (Medrol) 4 mg PO BID [facility] Last Admin: 12/23/18 09:57 Dose: 4 mg Morphine Sulfate (Morphine) 4 mg IVP Q6 PRN PRN Reason: Pain, severe (8-10) Last Admin: 12/22/18 12:53 Dose: 4 mg Ticagrelor (Brilinta) 90 mg PO BID [facility] Last Admin: 12/22/18 17:54 Dose: Not Given - Labs Labs: 12/23/18 06:35 12/23/18 06:35 PT 13.5 Seconds (9.8-13.1) H 12/23/18 06:35 INR 1.2 12/23/18 06:35 APTT 23.6 Seconds (25.6-37.1) L 12/23/18 06:35 - Constitutional Appears: Non-toxic, No Acute Distress, Chronically Ill - Head Exam Head Exam: ATRAUMATIC, NORMOCEPHALIC - Eye Exam Eye Exam: EOMI, Normal appearance - ENT Exam ENT Exam: Mucous Membranes Moist - Respiratory Exam Respiratory Exam: NORMAL BREATHING PATTERN. absent: Respiratory Distress - Cardiovascular Exam Cardiovascular Exam: REGULAR RHYTHM. absent: Tachycardia - GI/Abdominal Exam GI & Abdominal Exam: Soft. absent: Distended, Guarding, Tenderness Additional comments: extensive ecchymosis mainly left abdomen, old nonexpanding - Neurological Exam Neurological Exam: Alert, Awake, Oriented x3 Assessment and Plan - Assessment and Plan (Free Text) Assessment: 63 y/o female w/ rectus sheath hematoma Plan: -hgb stablized this am at 9.4 from 9.1 -transfuse prn -rec IR to evaluate if concerning for cont active bleeding -no acute surgical intervention at this time -further recs per attending AKWhite PGY4 <Manjinder Marie - Last Filed: 12/23/18 13:07> Objective - Vital Signs/Intake and Output Vital Signs (last 24 hours): Temp Pulse Resp BP Pulse Ox 97.9 F 89 20 100/63 93 L 12/23/18 08:40 12/23/18 08:40 12/23/18 08:40 12/23/18 08:40 12/23/18 08:40 - Medications Medications: Current Medications Albuterol (Ventolin Hfa 90 Mcg/Actuation (8 G)) 2 puff IH Q4 PRN PRN Reason: Shortness of Breath Albuterol/Ipratropium (Duoneb 3 Mg/0.5 Mg (3 Ml) Ud) 3 ml IH Q6 PRN PRN Reason: Shortness of Breath Methylprednisolone (Medrol) 4 mg PO BID [facility] Last Admin: 12/23/18 09:57 Dose: 4 mg Morphine Sulfate (Morphine) 4 mg IVP Q6 PRN PRN Reason: Pain, severe (8-10) Last Admin: 12/22/18 12:53 Dose: 4 mg Ticagrelor (Brilinta) 90 mg PO BID [facility] Last Admin: 12/22/18 17:54 Dose: Not Given - Labs Labs: 12/23/18 06:35 12/23/18 06:35 PT 13.5 Seconds (9.8-13.1) H 12/23/18 06:35 INR 1.2 04/10/19 06:35 APTT 23.6 Seconds (25.6-37.1) L 12/23/18 06:35 Assessment and Plan - Assessment and Plan (Free Text) Plan: pt seen at bedside, resting comfortably. Pt states abdominal pain has improved. HH stabalized, pts hemodynamically stable. gen: awake, alert, NAD HEENT: NC/AT, EOMI. PERRLA no acute respiratory distress abd: soft, ND, ecchymosis to left abdomen, minimal discomfort on palpation skin: ecchymosis to right hand, abdomen a/p -HH has stabalized -repeat HH in am unless pt becomes hemodynamically unstable hold anticoagulation -ok to restart diet from surgery standpoint
[2018-12-23 20:00] LABS: MEAN CELL VOLUME 91.1 fl (81.0-99.0); MEAN CORPUSCULAR HEMOGLOBIN 29.1 pg (27.0-31.0); MEAN CORPUSCULAR HGB CONC 31.9 g/dL (33.0-37.0); RBC 2.75 Mil/uL (3.80-5.20); RED CELL DISTRIBUTION WIDTH 14.5 % (11.5-14.5); WHITE BLOOD COUNT 13.1 K/uL (4.8-10.8)
[2018-12-23] MEDS: Albuterol-Ipratrop 3 mg / 0.5 (3 ml) UD INH SCH (21:30)
[2018-12-24 00:37] LABS: BASO % 0.1 % (0.0-2.0); HEMOGLOBIN 7.5 g/dL (12.0-16.0); LYMPH # 2.6 K/uL (1.0-4.3); LYMPH % 23.2 % (20.0-40.0); MEAN CORPUSCULAR HEMOGLOBIN 29.9 pg (27.0-31.0); MEAN CORPUSCULAR HGB CONC 32.8 g/dL (33.0-37.0); MEAN PLATELET VOLUME 7.3 fl (7.2-11.7); MONO # 0.6 K/uL (0.0-0.8); MONO % 5.7 % (0.0-10.0); NEUT # 7.9 K/uL (1.8-7.0); NRBC % 0.2 % (0.0-0.0); RBC 2.52 Mil/uL (3.80-5.20); RED CELL DISTRIBUTION WIDTH 14.3 % (11.5-14.5); WHITE BLOOD COUNT 11.2 K/uL (4.8-10.8)
[2018-12-24] MEDS ORDERED: Iohexol 300 100 ML IJ ONE (01:30)
[2018-12-24] MEDS ORDERED: Sodium Chloride 0.9% 50 ML IV ONE (01:31)
[2018-12-24] MEDS ORDERED: Benzocaine/Menthol (Cepacol) Lozenge PO ONE (03:04)
[2018-12-24] MEDS ORDERED: guaiFENesin DM 200 mg-20 mg/10 ml UD PO STA (03:04)
[2018-12-24] MEDS: Albuterol-Ipratrop 3 mg / 0.5 (3 ml) UD INH SCH ×3 (07:28→19:10)
--- NOTE | 2018-12-24 07:56 | CP.PCM.PN ---
Subjective - Date & Time of Evaluation Date of Evaluation: 12/24/18 Time of Evaluation: 07:52 - Subjective Subjective: General Surgery Note: Dr. Marie 63 year old female patient seen and examined at bedside. Patient resting comfortably and in NAD at this time. Patient was transferred to [facility] overnight. She reports mild pain to her abdomen at this time and notes increased bruising. Denies nausea/vomiting/fever/chest pain. Objective - Vital Signs/Intake and Output Vital Signs (last 24 hours): Temp Pulse Resp BP Pulse Ox 98.2 F 74 16 119/72 92 L 12/24/18 05:47 12/24/18 05:47 12/24/18 05:47 12/24/18 05:47 12/23/18 23:05 Intake and Output: 12/24/18 12/24/18 06:59 18:59 Intake Total 375 Balance 375 - Medications Medications: Current Medications Albuterol (Ventolin Hfa 90 Mcg/Actuation (8 G)) 2 puff IH Q4 PRN PRN Reason: Shortness of Breath Albuterol/Ipratropium (Duoneb 3 Mg/0.5 Mg (3 Ml) Ud) 3 ml IH Q6 PRN PRN Reason: Shortness of Breath Albuterol/Ipratropium (Duoneb 3 Mg/0.5 Mg (3 Ml) Ud) 3 ml INH RTID [facility] Last Admin: 12/24/18 07:28 Dose: 3 ml Docusate Sodium (Colace) 200 mg PO DAILY [facility] Last Admin: 12/23/18 13:38 Dose: 200 mg Sodium Chloride (Sodium Chloride 0.9%) 1,000 mls @ 125 mls/hr IV .Q8H [facility] Stop: 12/25/18 06:34 Lactulose (Enulose) 20 gm PO DAILY [facility] Methylprednisolone (Medrol) 4 mg PO BID [facility] Last Admin: 12/23/18 17:08 Dose: 4 mg Morphine Sulfate (Morphine) 4 mg IVP Q6 PRN PRN Reason: Pain, severe (8-10) Last Admin: 12/22/18 12:53 Dose: 4 mg Ticagrelor (Brilinta) 90 mg PO BID [facility] Last Admin: 12/22/18 17:54 Dose: Not Given - Labs Labs: 12/24/18 00:01 12/23/18 06:35 PT 13.5 Seconds (9.8-13.1) H 12/23/18 06:35 INR 1.2 12/23/18 06:35 APTT 23.6 Seconds (25.6-37.1) L 12/23/18 06:35 - Constitutional Appears: Non-toxic, No Acute Distress - Head Exam Head Exam: ATRAUMATIC, NORMOCEPHALIC - Cardiovascular Exam Cardiovascular Exam: REGULAR RHYTHM - GI/Abdominal Exam GI & Abdominal Exam: Distended, Soft Additional comments: Extensive ecchymosis appreciated to the left abdomen - Extremities Exam Extremities Exam: Normal Capillary Refill. absent: Calf Tenderness - Neurological Exam Neurological Exam: Alert, Awake, Oriented x3 - Psychiatric Exam Psychiatric exam: Normal Affect, Normal Mood - Skin Skin Exam: Warm Assessment and Plan - Assessment and Plan (Free Text) Assessment: 63 year old female patient with left rectus hematoma Plan: - Hgb trending down; 10.2 upon admission, 7.5 today - Repeat H/H in the am - NPO - C/w pain control - Hold anticoagulation - IR consult, for possible embolization - Transfuse PRN - Further recs per Dr. Frank Oglesby PGY1
[2018-12-24] MEDS: Sodium Chloride 0.9% 1,000 ML IV SCH ×2 (08:05→17:19)
--- NOTE | 2018-12-24 08:50 | CP.PCM.PN ---
Subjective - Date & Time of Evaluation Date of Evaluation: 12/24/18 Time of Evaluation: 09:46 - Subjective Subjective: -Patient was seen and examined this morning at bedside with son present. -Last night, patient's hemoglobin dropped to 7.5. -Chest CT & abdomen was performed. -Pt received 1 prbc transfused thus far & currently receiving 2nd prbc. -Chest & Abd CT reviewed with Dr. Atkins today who reported no active bleed and continued monitoring of H & H. -Patient slightly lethargic, and stated abdominal pain has improved. Denies any f/c/cp or sob. Objective - Vital Signs/Intake and Output Vital Signs (last 24 hours): Temp Pulse Resp BP Pulse Ox 97.7 F 82 18 110/67 93 L 12/24/18 08:23 12/24/18 08:23 12/24/18 08:23 12/24/18 08:23 12/24/18 08:23 Intake and Output: 12/24/18 12/24/18 06:59 18:59 Intake Total 375 Balance 375 - Medications Medications: Current Medications Albuterol (Ventolin Hfa 90 Mcg/Actuation (8 G)) 2 puff IH Q4 PRN PRN Reason: Shortness of Breath Albuterol/Ipratropium (Duoneb 3 Mg/0.5 Mg (3 Ml) Ud) 3 ml IH Q6 PRN PRN Reason: Shortness of Breath Albuterol/Ipratropium (Duoneb 3 Mg/0.5 Mg (3 Ml) Ud) 3 ml INH RTID [facility] Last Admin: 12/24/18 07:28 Dose: 3 ml Docusate Sodium (Colace) 200 mg PO DAILY [facility] Last Admin: 12/23/18 13:38 Dose: 200 mg Sodium Chloride (Sodium Chloride 0.9%) 1,000 mls @ 125 mls/hr IV .Q8H [facility] Stop: 12/25/18 06:34 Lactulose (Enulose) 20 gm PO DAILY [facility] Methylprednisolone (Medrol) 4 mg PO BID [facility] Last Admin: 12/23/18 17:08 Dose: 4 mg Morphine Sulfate (Morphine) 4 mg IVP Q6 PRN PRN Reason: Pain, severe (8-10) Last Admin: 12/22/18 12:53 Dose: 4 mg Ticagrelor (Brilinta) 90 mg PO BID [facility] Last Admin: 12/22/18 17:54 Dose: Not Given - Labs Labs: 12/24/18 00:01 12/23/18 06:35 PT 13.5 Seconds (9.8-13.1) H 12/23/18 06:35 INR 1.2 12/23/18 06:35 APTT 23.6 Seconds (25.6-37.1) L 12/23/18 06:35 - Head Exam Head Exam: ATRAUMATIC - Eye Exam Eye Exam: EOMI - ENT Exam ENT Exam: Mucous Membranes Dry - Respiratory Exam Respiratory Exam: absent: Respiratory Distress Additional comments: scattered rhonchi - Cardiovascular Exam Cardiovascular Exam: REGULAR RHYTHM, +S1, +S2 - GI/Abdominal Exam GI & Abdominal Exam: Tenderness. absent: Rigid Additional comments: ecchymosis from left flank across the anterior abdomen, slightly department mgr in appearance compared to yesterday; epigastric tenderness; no rigidity - Neurological Exam Additional comments: slightly lethargic - Psychiatric Exam Psychiatric exam: Normal Mood - Skin Skin Exam: Dry Assessment and Plan - Assessment and Plan (Free Text) Assessment: 63 yo female with history of HTN, COPD, fibromyalgia, migraines, chronic fatigue and NH 07/2018 s/p stent with recent discharge for COPD exacerbation admitted for further management of 11.3cm intramuscular or submuscular hematoma at left rectus abdominus muscle. Abdominal wall hematoma /rectus sheath hematoma -s/p 1 prbc transfusion; currently undergoing 2nd prbc transfusion -Chest & Abd CT reviewed with Dr. Atkins who reported no active bleed and continued monitoring of H & H. - If Hgb <8, transfuse -C/w pain management as recommended by Dr. Karimi- IV morphine PRN Acute blood loss anemia (likely from extravasation of blood into abdominal wall -s/p 1 prbc transfusion; currently undergoing 2nd prbc transfusion -Monitor of H & H COPD with hypoxemia (chronic) -c/w oxygen via nasal canula to maintain 02 sat b/w 88-92% -C/w Alb Q4 prn -C/w Dooneb Q6 prn -C/w Salumedrol 3 mg PO BID Recent Hx of NH and s/p Stent -hold Brilinta HTN (Chronic, Controlled) -hold meds Newly dx DM-II - A1C 6.6 Constipation ( chronic, likely due to chronic morphine use) -C/w colace daily, fleet enema prn
[2018-12-24] MEDS: FLUTICASONE PROPION/SALMETEROL 113MCG/14MCG 60 PUFF IH SCH ×2 (09:07→17:15)
--- NOTE | 2018-12-24 09:40 | CP.PCM.PN ---
Subjective - Date & Time of Evaluation Date of Evaluation: 12/24/18 Time of Evaluation: 09:37 - Subjective Subjective: General Surgery Pt seen and examined this AM. She reports feeling better today. She is currently NPO. She is worried that she is going to from this bleeding. Labs and vitals noted. HGB dropped down to 7.5. PE Gen: Pt laying in bed in NAD Skin: erythema and ecchymosis on abdomen on the left side Cardio: s1s2 RRR Lungs: (+) poor air movement, (+) wheezing in bilateral lower lobes Abd: Soft, (+) palpable pain pump on right side of abdomen, (+) tenderness over erythema on left side of abdomen with some fullness in region. Surgical scar on right side of abdomen healed. A/P 63 year old female patient with left rectus hematoma Hgb trending down, awaiting IR for possible embolization Repeat H/H in the am NPO Hold anticoagulation RN mentioned pt to be transfused today, no order noted in chart at this time. Objective - Vital Signs/Intake and Output Vital Signs (last 24 hours): Temp Pulse Resp BP Pulse Ox 97.7 F 82 18 110/67 93 L 12/24/18 08:23 12/24/18 08:23 12/24/18 08:23 12/24/18 08:23 12/24/18 08:23 Intake and Output: 12/24/18 12/24/18 06:59 18:59 Intake Total 375 Balance 375 - Medications Medications: Current Medications Albuterol (Ventolin Hfa 90 Mcg/Actuation (8 G)) 2 puff IH Q4 PRN PRN Reason: Shortness of Breath Albuterol/Ipratropium (Duoneb 3 Mg/0.5 Mg (3 Ml) Ud) 3 ml IH Q6 PRN PRN Reason: Shortness of Breath Albuterol/Ipratropium (Duoneb 3 Mg/0.5 Mg (3 Ml) Ud) 3 ml INH RTID [facility] Last Admin: 12/24/18 07:28 Dose: 3 ml Docusate Sodium (Colace) 200 mg PO DAILY [facility] Last Admin: 12/24/18 09:07 Dose: 200 mg Sodium Chloride (Sodium Chloride 0.9%) 1,000 mls @ 125 mls/hr IV .Q8H [facility] Stop: 12/25/18 06:34 Lactulose (Enulose) 20 gm PO DAILY [facility] Last Admin: 12/24/18 09:07 Dose: 20 gm Methylprednisolone (Medrol) 4 mg PO BID [facility] Last Admin: 12/24/18 09:08 Dose: 4 mg Morphine Sulfate (Morphine) 4 mg IVP Q6 PRN PRN Reason: Pain, severe (8-10) Last Admin: 12/22/18 12:53 Dose: 4 mg Ticagrelor (Brilinta) 90 mg PO BID [facility] Last Admin: 12/22/18 17:54 Dose: Not Given - Labs Labs: 12/24/18 00:01 12/23/18 06:35 PT 13.5 Seconds (9.8-13.1) H 12/23/18 06:35 INR 1.2 12/23/18 06:35 APTT 23.6 Seconds (25.6-37.1) L 12/23/18 06:35
[2018-12-24 11:33] LABS: INR 1.1; PROTHROMBIN TIME 12.1 Seconds (9.8-13.1)
--- NOTE | 2018-12-24 13:48 | CT ---
Date of service: 12/24/2018 PROCEDURE: CT Chest, Abdomen and Pelvis with intravenous contrast HISTORY: Active bleeding/abdominal Hemartoma COMPARISON: 12/22/2018 abdominal/pelvic CT TECHNIQUE: IV dose administered: 90 mL Omnipaque 300 Radiation dose: Total exam DLP = 814.99 mGy-cm. This CT exam was performed using one or more of the following dose reduction techniques: Automated exposure control, adjustment of the mA and/or kV according to patient size, and/or use of iterative reconstruction technique. FINDINGS: CT CHEST WITH CONTRAST: LUNGS: Minimal bilateral lower lobe subsegmental atelectasis. Nonspecific small airways disease in right middle lobe, and right lower lobe. Few nonspecific patchy opacities, small, in right middle and right lower lobe. No shilpi consolidation. No pulmonary mass. There is centrilobular pulmonary emphysema. MEDIASTINUM: Unremarkable. Normal caliber aorta and pulmonary arterial trunk. No aortic dissection. Normal size heart. LYMPH NODES: Unremarkable. PLEURA: Unremarkable. No pneumothorax. No pleural fluid. BONES: Unremarkable. OTHER FINDINGS: None. CT ABDOMEN AND PELVIS: LIVER: Unremarkable. No gross lesion or ductal dilatation. GALLBLADDER AND BILE DUCTS: Status post cholecystectomy. There is dilatation of the common bile duct to a diameter of roughly 10 mm. This may be related to patient age and prior cholecystectomy. There is no associated intrahepatic biliary dilatation. Correlate with laboratory evaluation for possible biliary obstruction. PANCREAS: Unremarkable. No gross lesion or ductal dilatation. SPLEEN: Unremarkable. ADRENALS: Unremarkable. No mass. KIDNEYS AND URETERS: Unremarkable. No hydronephrosis. No solid mass. VASCULATURE: There is atherosclerotic calcification of the abdominal aorta. Unremarkable. No aortic aneurysm. BOWEL: Unremarkable. No obstruction. No gross mural thickening. APPENDIX: Normal appendix. PERITONEUM: There is no ascites or pneumoperitoneum. There is a left rectus sheath hematoma which is essentially unchanged in size when compared to the prior examination. It now measures approximately 4.1 x 10.4 x 13.0 cm. No active extravasation is appreciated within this collection on current examination. There is a spinal stimulator module seen over the right anterior abdominal wall. The spinal stimulator enters the thoracolumbar spinal canal. LYMPH NODES: Unremarkable. No enlarged lymph nodes. BLADDER: Unremarkable. REPRODUCTIVE: Status post hysterectomy BONES: No acute fracture. OTHER FINDINGS: None. IMPRESSION: Essentially no interval change in size of left rectus sheath hematoma. No active extravasation demonstrated on current examination. Centrilobular pulmonary emphysema. Few small focal areas of small airways disease in right middle and right lower lobe. Additional minor findings as above. The preliminary findings for this examination were reported by [facility] Rad[facility] at 2:25 a.m. on 12/24/2018. There is concurrence of this report with the preliminary findings.
[2018-12-24 15:17] LABS: BASO % 0.1 % (0.0-2.0); HEMOGLOBIN 10.3 g/dL (12.0-16.0); LYMPH # 1.4 K/uL (1.0-4.3); LYMPH % 12.8 % (20.0-40.0); MEAN CELL VOLUME 90.6 fl (81.0-99.0); MEAN CORPUSCULAR HEMOGLOBIN 29.8 pg (27.0-31.0); MEAN CORPUSCULAR HGB CONC 32.9 g/dL (33.0-37.0); MEAN PLATELET VOLUME 7.3 fl (7.2-11.7); MONO # 0.6 K/uL (0.0-0.8); MONO % 5.2 % (0.0-10.0); NEUT # 9.2 K/uL (1.8-7.0); NEUT % 81.9 % (50.0-75.0); RBC 3.47 Mil/uL (3.80-5.20); RED CELL DISTRIBUTION WIDTH 14.5 % (11.5-14.5); WHITE BLOOD COUNT 11.2 K/uL (4.8-10.8)
[2018-12-24 20:29] LABS: BASO % 0.3 % (0.0-2.0); EOS % 0.1 % (0.0-4.0); HEMOGLOBIN 10.6 g/dL (12.0-16.0); LYMPH # 1.4 K/uL (1.0-4.3); LYMPH % 11.8 % (20.0-40.0); MEAN CELL VOLUME 90.2 fl (81.0-99.0); MEAN CORPUSCULAR HGB CONC 33.3 g/dL (33.0-37.0); MEAN PLATELET VOLUME 7.1 fl (7.2-11.7); MONO # 0.6 K/uL (0.0-0.8); MONO % 5.5 % (0.0-10.0); NEUT # 9.5 K/uL (1.8-7.0); NEUT % 82.3 % (50.0-75.0); NRBC % 1.2 % (0.0-0.0); RBC 3.52 Mil/uL (3.80-5.20); RED CELL DISTRIBUTION WIDTH 14.7 % (11.5-14.5); WHITE BLOOD COUNT 11.5 K/uL (4.8-10.8)
[2018-12-24] MEDS: Morphine 4 MG/ML VIAL IVP PRN (21:32)
[2018-12-25] MEDS: Sodium Chloride 0.9% 1,000 ML IV SCH (01:46)
[2018-12-25] MEDS: Morphine 4 MG/ML VIAL IVP PRN ×4 (03:35→23:50)
[2018-12-25 05:50] LABS: HEMOGLOBIN 9.3 g/dL (12.0-16.0); MEAN CELL VOLUME 90.3 fl (81.0-99.0); MEAN CORPUSCULAR HEMOGLOBIN 30.6 pg (27.0-31.0); MEAN CORPUSCULAR HGB CONC 33.8 g/dL (33.0-37.0); RBC 3.04 Mil/uL (3.80-5.20); WHITE BLOOD COUNT 9.3 K/uL (4.8-10.8)
--- NOTE | 2018-12-25 07:46 | CP.PCM.PN ---
<Kori Hdz - Last Filed: 12/25/18 10:41> Subjective - Date & Time of Evaluation Date of Evaluation: 12/25/18 Time of Evaluation: 09:26 - Subjective Subjective: Patient was seen and examined this morning at bedside. Hemoglobin 9.3 this AM s/p 2 prbc. Patient pain is tolerable with pain regimen. She denied any fever, chills, n/v/diarrhea, cp or sob. Objective - Vital Signs/Intake and Output Vital Signs (last 24 hours): Temp Pulse Resp BP Pulse Ox 98.1 F 62 16 114/72 96 12/25/18 05:00 12/25/18 05:00 12/25/18 05:00 12/25/18 05:00 12/25/18 05:00 - Medications Medications: Current Medications Albuterol (Ventolin Hfa 90 Mcg/Actuation (8 G)) 2 puff IH Q4 PRN PRN Reason: Shortness of Breath Albuterol/Ipratropium (Duoneb 3 Mg/0.5 Mg (3 Ml) Ud) 3 ml IH Q6 PRN PRN Reason: Shortness of Breath Albuterol/Ipratropium (Duoneb 3 Mg/0.5 Mg (3 Ml) Ud) 3 ml INH RTID [facility] Last Admin: 12/24/18 19:10 Dose: 3 ml Docusate Sodium (Colace) 200 mg PO DAILY [facility] Last Admin: 12/24/18 09:07 Dose: 200 mg Lactulose (Enulose) 20 gm PO DAILY [facility] Last Admin: 12/24/18 09:07 Dose: 20 gm Methylprednisolone (Medrol) 4 mg PO BID [facility] Last Admin: 12/24/18 17:16 Dose: 4 mg Morphine Sulfate (Morphine) 4 mg IVP Q6 PRN PRN Reason: Pain, severe (8-10) Stop: 12/26/18 19:50 Last Admin: 12/25/18 03:35 Dose: 4 mg Ticagrelor (Brilinta) 90 mg PO BID [facility] Last Admin: 12/22/18 17:54 Dose: Not Given - Labs Labs: 12/25/18 04:50 12/23/18 06:35 PT 12.1 Seconds (9.8-13.1) 12/24/18 11:00 INR 1.1 12/24/18 11:00 APTT 23.0 Seconds (25.6-37.1) L 12/24/18 11:00 - Constitutional Appears: Non-toxic - Head Exam Head Exam: ATRAUMATIC - Eye Exam Eye Exam: EOMI - ENT Exam ENT Exam: Mucous Membranes Dry - Cardiovascular Exam Cardiovascular Exam: +S1, +S2 - GI/Abdominal Exam GI & Abdominal Exam: Soft Additional comments: ecchymosis from left flank across the anterior abdomen continues to show improve ment in appearance compared to yesterday; minimal epigastric tenderness; no rigidity or guarding - Extremities Exam Extremities Exam: absent: Calf Tenderness - Neurological Exam Neurological Exam: Alert, Awake, Oriented x3 - Psychiatric Exam Psychiatric exam: Normal Mood - Skin Skin Exam: Dry Additional comments: scattered ecchymosis on the arms Assessment and Plan - Assessment and Plan (Free Text) Assessment: 63 yo female with history of HTN, COPD, fibromyalgia, migraines, chronic fatigue and [place] 07/2018 s/p stent with recent discharge for COPD exacerbation admitted for further management of 11.3cm intramuscular or submuscular hematoma at left rectus abdominus muscle. Abdominal wall hematoma /rectus sheath hematoma -s/p 2 prbc transfusion yesterday; Hemoglobin 9.3 this morning -Chest & Abd CT reviewed with Dr. Atkisn yesterday who reported no active bleed and continued monitoring of H & H. - If Hgb <8, transfuse -C/w pain management as recommended by Dr. Karimi- IV morphine PRN Acute blood loss anemia (likely from extravasation of blood into abdominal wall -s/p 2 prbc transfusion; Hemoglobin 9.3 this morning -Monitor of H & H COPD with hypoxemia (chronic) -c/w oxygen via nasal canula to maintain 02 sat b/w 88-92% -C/w Alb Q4 prn -C/w Dooneb Q6 prn -C/w Salumedrol 3 mg PO BID Recent Hx of [place] and s/p Stent -Will possibly restart Brilinta HTN (Chronic, Controlled) -hold meds Newly dx DM-II - A1C 6.6 Constipation ( chronic, likely due to chronic morphine use) -C/w colace daily, fleet enema prn <Areglia Stewart - Last Filed: 12/25/18 17:45> Objective - Vital Signs/Intake and Output Vital Signs (last 24 hours): Temp Pulse Resp BP Pulse Ox 98.1 F 70 22 108/61 97 12/25/18 16:30 12/25/18 16:30 12/25/18 16:30 12/25/18 16:30 12/25/18 16:30 - Medications Medications: Current Medications Albuterol (Ventolin Hfa 90 Mcg/Actuation (8 G)) 2 puff IH Q4 PRN PRN Reason: Shortness of Breath Albuterol/Ipratropium (Duoneb 3 Mg/0.5 Mg (3 Ml) Ud) 3 ml IH Q6 PRN PRN Reason: Shortness of Breath Albuterol/Ipratropium (Duoneb 3 Mg/0.5 Mg (3 Ml) Ud) 3 ml INH RTID [facility] Last Admin: 12/25/18 13:59 Dose: 3 ml Clopidogrel Bisulfate (Plavix) 75 mg PO DAILY [facility] Last Admin: 12/25/18 14:00 Dose: 75 mg Docusate Sodium (Colace) 200 mg PO DAILY [facility] Last Admin: 12/25/18 09:26 Dose: 200 mg Lactulose (Enulose) 20 gm PO DAILY [facility] Last Admin: 12/25/18 09:26 Dose: 20 gm Methylprednisolone (Medrol) 4 mg PO BID [facility] Last Admin: 12/25/18 17:23 Dose: 4 mg Morphine Sulfate (Morphine) 4 mg IVP Q6 PRN PRN Reason: Pain, severe (8-10) Stop: 12/26/18 19:50 Last Admin: 12/25/18 10:42 Dose: 4 mg - Labs Labs: 12/25/18 12:45 12/23/18 06:35 PT 12.1 Seconds (9.8-13.1) 12/24/18 11:00 INR 1.1 12/24/18 11:00 APTT 23.0 Seconds (25.6-37.1) L 12/24/18 11:00 Attending/Attestation - Attestation I have personally seen and examined this patient.: Yes I have fully participated in the care of the patient.: Yes I have reviewed all pertinent clinical information, including history, physical exam and plan: Yes Notes (Text): Abd Wall Hematoma/Rectus Sheath Hematoma ( from Lovenox injections , pt also on ASA and Brillinta) Acute Blood Loss Anemia likely from extravasation of blood into abd wall Chronic COPD on Home Oxygen Constipation CAD s/p Stent ( May 2018) Chronic Pain/Fibromyalgia with Implanted Morphine Pump -IR consulted for poss Embolization due to noted active extravasation seen on CT -Dr Atkins reviewed case , not feasible, multiple areas , rec to monitor H/H - Surgery consulted - Hgb dropped to 7.5 from 12.2 , pt was transfused 2 units PRBC - Pain mgt - pt has Morphine pump - will call her Pain mgt speciallist Dr Dickey - monitor H/H -cont Oxygen at 2 liters - Duoneb prn - cont Medrol 4 mg bid - hold Brilinta and ASA - Lactulose daily, Colace, Fleet prn - consulted Cardio Dr Abdi - pt has Drug eleuting stent placed in May - discussed case with Dr Abdi - rec to restart Plavix now that H/H is stable as pt is at risk for Stent Thrombosis, monitor pt for recurrence of bleeding in the hospital while on Plavix over the weekend
[2018-12-25] MEDS: Albuterol-Ipratrop 3 mg / 0.5 (3 ml) UD INH SCH ×3 (07:55→19:38)
--- NOTE | 2018-12-25 08:23 | CP.PCM.PN ---
<Modesta Oglesby - Last Filed: 12/25/18 08:24> Subjective - Date & Time of Evaluation Date of Evaluation: 12/25/18 Time of Evaluation: 08:24 - Subjective Subjective: General Surgery Note: Dr. Marie 63 year old female patient seen and examined at bedside. Patient resting comfortably and in NAD at this time with family member present at beside. She reports mild pain to her abdomen, however the pain continues to improve. She notes that the bruising is beginning to resolve as well since she was first admitted. Denies nausea/vomiting/fever/chest pain. Objective - Vital Signs/Intake and Output Vital Signs (last 24 hours): Temp Pulse Resp BP Pulse Ox 98.1 F 62 16 114/72 96 12/25/18 05:00 12/25/18 05:00 12/25/18 05:00 12/25/18 05:00 12/25/18 05:00 - Medications Medications: Current Medications Albuterol (Ventolin Hfa 90 Mcg/Actuation (8 G)) 2 puff IH Q4 PRN PRN Reason: Shortness of Breath Albuterol/Ipratropium (Duoneb 3 Mg/0.5 Mg (3 Ml) Ud) 3 ml IH Q6 PRN PRN Reason: Shortness of Breath Albuterol/Ipratropium (Duoneb 3 Mg/0.5 Mg (3 Ml) Ud) 3 ml INH RTID [facility] Last Admin: 12/25/18 07:55 Dose: 3 ml Docusate Sodium (Colace) 200 mg PO DAILY [facility] Last Admin: 12/24/18 09:07 Dose: 200 mg Lactulose (Enulose) 20 gm PO DAILY [facility] Last Admin: 12/24/18 09:07 Dose: 20 gm Methylprednisolone (Medrol) 4 mg PO BID [facility] Last Admin: 12/24/18 17:16 Dose: 4 mg Morphine Sulfate (Morphine) 4 mg IVP Q6 PRN PRN Reason: Pain, severe (8-10) Stop: 12/26/18 19:50 Last Admin: 12/25/18 03:35 Dose: 4 mg Ticagrelor (Brilinta) 90 mg PO BID [facility] Last Admin: 12/22/18 17:54 Dose: Not Given - Labs Labs: 12/25/18 04:50 12/23/18 06:35 PT 12.1 Seconds (9.8-13.1) 12/24/18 11:00 INR 1.1 12/24/18 11:00 APTT 23.0 Seconds (25.6-37.1) L 12/24/18 11:00 - Constitutional Appears: Non-toxic, No Acute Distress - Head Exam Head Exam: ATRAUMATIC, NORMOCEPHALIC - Eye Exam Eye Exam: Normal appearance - Respiratory Exam Respiratory Exam: Wheezes - Cardiovascular Exam Cardiovascular Exam: REGULAR RHYTHM - GI/Abdominal Exam GI & Abdominal Exam: Distended, Soft Additional comments: Extensive ecchymosis appreciated to the left abdomen, resolving - Neurological Exam Neurological Exam: Alert, Awake, Oriented x3 - Psychiatric Exam Psychiatric exam: Normal Affect, Normal Mood Assessment and Plan - Assessment and Plan (Free Text) Assessment: 63 year old female patient with left rectus hematoma Plan: - Patient transfused with PRBC (x2) yesterday, Hgb 9.3 today - No plan for acute surgical intervention - IR consult, for possible embolization - Repeat H/H in the am - C/w pain control - Hold anticoagulation - Transfuse PRN - Further recs per Dr. Frank Oglesby PGY1 <Manjinder Marie - Last Filed: 12/25/18 09:51> Objective - Vital Signs/Intake and Output Vital Signs (last 24 hours): Temp Pulse Resp BP Pulse Ox 98.1 F 62 20 119/61 93 L 12/25/18 08:33 12/25/18 08:33 12/25/18 08:33 12/25/18 08:33 12/25/18 08:33 - Medications Medications: Current Medications Albuterol (Ventolin Hfa 90 Mcg/Actuation (8 G)) 2 puff IH Q4 PRN PRN Reason: Shortness of Breath Albuterol/Ipratropium (Duoneb 3 Mg/0.5 Mg (3 Ml) Ud) 3 ml IH Q6 PRN PRN Reason: Shortness of Breath Albuterol/Ipratropium (Duoneb 3 Mg/0.5 Mg (3 Ml) Ud) 3 ml INH RTID [facility] Last Admin: 12/25/18 07:55 Dose: 3 ml Docusate Sodium (Colace) 200 mg PO DAILY [facility] Last Admin: 12/25/18 09:26 Dose: 200 mg Lactulose (Enulose) 20 gm PO DAILY [facility] Last Admin: 12/25/18 09:26 Dose: 20 gm Methylprednisolone (Medrol) 4 mg PO BID [facility] Last Admin: 12/25/18 09:27 Dose: 4 mg Morphine Sulfate (Morphine) 4 mg IVP Q6 PRN PRN Reason: Pain, severe (8-10) Stop: 12/26/18 19:50 Last Admin: 12/25/18 03:35 Dose: 4 mg Ticagrelor (Brilinta) 90 mg PO BID [facility] Last Admin: 12/22/18 17:54 Dose: Not Given - Labs Labs: 12/25/18 04:50 12/23/18 06:35 PT 12.1 Seconds (9.8-13.1) 12/24/18 11:00 INR 1.1 12/24/18 11:00 APTT 23.0 Seconds (25.6-37.1) L 12/24/18 11:00 Assessment and Plan - Assessment and Plan (Free Text) Plan: Pt resting comfortably, feels much better tolerating diet. abdominal pain has resolved. Pt s/p 2 units PRBC with appropriate response. Pt remains hemodynamically stable. gen: awake, alert, NAD, heent: nc/at, eomi, on NC O2 abd: soft, NT, ND, Ecchymosis to left abdomen/flank, no swelling or distention -HH stable -no further surgical intervention at this point, surgery will sign off
[2018-12-25] MEDS: FLUTICASONE PROPION/SALMETEROL 113MCG/14MCG 60 PUFF IH SCH ×2 (09:25→17:24)
[2018-12-25 13:41] LABS: MEAN CELL VOLUME 91.5 fl (81.0-99.0); MEAN CORPUSCULAR HGB CONC 32.8 g/dL (33.0-37.0); RBC 3.33 Mil/uL (3.80-5.20); RED CELL DISTRIBUTION WIDTH 14.8 % (11.5-14.5); WHITE BLOOD COUNT 9.1 K/uL (4.8-10.8)
[2018-12-26] MEDS: Morphine 4 MG/ML VIAL IVP PRN ×2 (05:57→12:28)
[2018-12-26 07:35] LABS: BASO % 0.1 % (0.0-2.0); EOS # 0.1 K/uL (0.0-0.7); EOS % 0.9 % (0.0-4.0); HEMOGLOBIN 9.8 g/dL (12.0-16.0); LYMPH # 2.7 K/uL (1.0-4.3); LYMPH % 32.2 % (20.0-40.0); MEAN CORPUSCULAR HEMOGLOBIN 30.7 pg (27.0-31.0); MEAN CORPUSCULAR HGB CONC 33.8 g/dL (33.0-37.0); MEAN PLATELET VOLUME 7.3 fl (7.2-11.7); MONO # 0.6 K/uL (0.0-0.8); MONO % 7.4 % (0.0-10.0); NEUT % 59.4 % (50.0-75.0); NRBC % 0.5 % (0.0-0.0); RBC 3.19 Mil/uL (3.80-5.20); RED CELL DISTRIBUTION WIDTH 14.6 % (11.5-14.5); WHITE BLOOD COUNT 8.4 K/uL (4.8-10.8)
[2018-12-26] MEDS: Albuterol-Ipratrop 3 mg / 0.5 (3 ml) UD INH SCH ×3 (07:52→19:19)
[2018-12-26] MEDS: FLUTICASONE PROPION/SALMETEROL 113MCG/14MCG 60 PUFF IH SCH ×2 (09:26→16:52)
--- NOTE | 2018-12-26 10:07 | CP.PCM.PN ---
Subjective - Date & Time of Evaluation Date of Evaluation: 12/26/18 Time of Evaluation: 10:05 - Subjective Subjective: Pt seen and examined bedside. No new complaints, reports easier breathing today but consintued pain at site of large hematoma on abdomen. Ambulating to bathroom and voiding without difficulty. Denies nausea, headache, dizziness, vomiting, CP, and diarrhea. Objective - Vital Signs/Intake and Output Vital Signs (last 24 hours): Temp Pulse Resp BP Pulse Ox 98.1 F 63 20 113/69 97 12/26/18 08:09 12/26/18 08:09 12/26/18 08:09 12/26/18 08:09 12/26/18 08:09 - Medications Medications: Current Medications Albuterol (Ventolin Hfa 90 Mcg/Actuation (8 G)) 2 puff IH Q4 PRN PRN Reason: Shortness of Breath Albuterol/Ipratropium (Duoneb 3 Mg/0.5 Mg (3 Ml) Ud) 3 ml IH Q6 PRN PRN Reason: Shortness of Breath Albuterol/Ipratropium (Duoneb 3 Mg/0.5 Mg (3 Ml) Ud) 3 ml INH RTID [facility] Last Admin: 12/26/18 07:52 Dose: 3 ml Clopidogrel Bisulfate (Plavix) 75 mg PO DAILY [facility] Last Admin: 12/26/18 09:26 Dose: 75 mg Docusate Sodium (Colace) 200 mg PO DAILY [facility] Last Admin: 12/26/18 09:26 Dose: 200 mg Lactulose (Enulose) 20 gm PO DAILY [facility] Last Admin: 12/26/18 09:26 Dose: 20 gm Methylprednisolone (Medrol) 4 mg PO BID [facility] Last Admin: 12/26/18 09:26 Dose: 4 mg Morphine Sulfate (Morphine) 4 mg IVP Q6 PRN PRN Reason: Pain, severe (8-10) Stop: 12/26/18 19:50 Last Admin: 12/26/18 05:57 Dose: 4 mg - Labs Labs: 12/26/18 05:40 12/23/18 06:35 PT 12.1 Seconds (9.8-13.1) 12/24/18 11:00 INR 1.1 12/24/18 11:00 APTT 23.0 Seconds (25.6-37.1) L 12/24/18 11:00 - Constitutional Appears: Non-toxic, No Acute Distress - ENT Exam ENT Exam: Mucous Membranes Moist - Respiratory Exam Respiratory Exam: NORMAL BREATHING PATTERN. absent: Respiratory Distress Additional comments: O2 NC - GI/Abdominal Exam Additional comments: ecchymosis from left flank across the anterior abdomen continues to show improvement in appearance compared to yesterday; minimal epigastric tenderness; no rigidity or guarding - Extremities Exam Extremities Exam: absent: Pedal Edema - Neurological Exam Neurological Exam: Alert, Awake, Oriented x3 - Psychiatric Exam Psychiatric exam: Normal Affect, Normal Mood - Skin Additional comments: ecchymosis as noted above Assessment and Plan - Assessment and Plan (Free Text) Assessment: 63 yo female with history of HTN, COPD, fibromyalgia, migraines, chronic fatigue and [place] 07/2018 s/p stent with recent discharge for COPD exacerbation admitted for further management of 11.3cm intramuscular or submuscular hematoma at left rectus abdominus muscle. Plan: Abdominal wall hematoma /rectus sheath hematoma -s/p 2 prbc transfusion yesterday; Hemoglobin 9.3 this morning -As per DR Atkins Chest & Abd CT reported no active bleed and continued monitoring of H & H. - If Hgb <8, transfuse -C/w pain management as recommended by Dr. Karimi- IV morphine PRN Acute blood loss anemia (likely from extravasation of blood into abdominal wall -stable, treansfer to med-surg -s/p 2 prbc transfusion -Hemoglobin 9.8 -CBC Q24 COPD with hypoxemia (chronic) -c/w oxygen via nasal canula to maintain 02 sat b/w 88-92% -C/w Alb Q4 prn -C/w Dooneb Q6 prn -C/w Salumedrol 3 mg PO BID Recent Hx of [place] and s/p Stent -Plavix 75mg PO as per Dr. Abdi HTN (Chronic, Controlled) -hold meds for now Newly dx DM-II - A1C 6.6 Constipation -Chronic, likely secondary to long-term morphine use -C/w colace daily, fleet enema prn
--- NOTE | 2018-12-26 13:25 | CP.PCM.CON ---
History of Present Illness - History of Present Illness History of Present Illness: Consultation for evaluation of DAPT in the setting of rectus sheath hematoma HPI: Shital is a 63-year-old female with past medical history significant for coronary artery disease who had an acute inferior wall TN in May 2018 at which time she had angioplasty and stenting of the RCA also has history of hypertension fibromyalgia rheumatoid arthritis migraine hyperlipidemia who was recently discharged from the hospital after a bout of COPD exacerbation during the hospitalization she was given subcutaneous heparin she now presented with bruising and discomfort along the abdominal wall area and a drop in hemoglobin by 3 grams. Her Brilinta was held for the last 3 days and I was consulted for evaluation of dual antiplatelet therapy because of recent history of stenting I had recommended to start her back on Plavix and observe for 48 hours and then subsequently discharged home on baby asa with plavix Review of Systems - Review of Systems Systems not reviewed;Unavailable: Acuity of Condition - Constitutional Constitutional: As Per HPI - EENT Eyes: As Per HPI Ears: As Per HPI Nose/Mouth/Throat: As Per HPI - Breasts Breasts: As Per HPI - Cardiovascular Cardiovascular: As Per HPI - Respiratory Respiratory: As Per HPI - Gastrointestinal Gastrointestinal: As Per HPI - Genitourinary Genitourinary: As Per HPI - Reproductive: Female Reproductive:Female: As Per HPI - Menstruation Menstruation: As Per HPI - Musculoskeletal Musculoskeletal: As Per HPI - Integumentary Integumentary: As Per HPI - Neurological Neurological: As Per HPI - Psychiatric Psychiatric: As Per HPI - Endocrine Endocrine: As Per HPI - Hematologic/Lymphatic Hematologic: As Per HPI Past Patient History - Infectious Disease Hx of Infectious Diseases: None - Past Medical History & Family History Past Medical History?: Yes - Past Social History Smoking Status: Former Smoker - CARDIAC Hx Hypercholesterolemia: Yes Hx Hypertension: Yes - PULMONARY Hx Asthma: Yes Hx Chronic Obstructive Pulmonary Disease (COPD): Yes - NEUROLOGICAL Hx Migraine: Yes - HEENT Hx HEENT Problems: No - RENAL Hx Chronic Kidney Disease: No - ENDOCRINE/METABOLIC Hx Endocrine Disorders: No - HEMATOLOGICAL/ONCOLOGICAL Hx Human Immunodeficiency Virus (HIV): No - INTEGUMENTARY Hx Dermatological Problems: No - MUSCULOSKELETAL/RHEUMATOLOGICAL Hx Musculoskeletal Disorders: No Hx Falls: No - GASTROINTESTINAL Hx Gastrointestinal Disorders: No - GENITOURINARY/GYNECOLOGICAL Hx Genitourinary Disorders: No - PSYCHIATRIC Hx Anxiety: Yes Hx Substance Use: No - SURGICAL HISTORY Hx Cholecystectomy: Yes Hx Coronary Stent: Yes - ANESTHESIA Hx Anesthesia: Yes Hx Anesthesia Reactions: No Hx Malignant Hyperthermia: No Meds Allergies/Adverse Reactions: Allergies Allergy/AdvReac Type Severity Reaction Status Date / Time "hospital tape" Allergy RASH Uncoded 12/17/18 15:02 - Medications Medications: Current Medications Albuterol (Ventolin Hfa 90 Mcg/Actuation (8 G)) 2 puff IH Q4 PRN PRN Reason: Shortness of Breath Albuterol/Ipratropium (Duoneb 3 Mg/0.5 Mg (3 Ml) Ud) 3 ml IH Q6 PRN PRN Reason: Shortness of Breath Albuterol/Ipratropium (Duoneb 3 Mg/0.5 Mg (3 Ml) Ud) 3 ml INH RTID [facility] Last Admin: 12/26/18 07:52 Dose: 3 ml Clopidogrel Bisulfate (Plavix) 75 mg PO DAILY [facility] Last Admin: 12/26/18 09:26 Dose: 75 mg Docusate Sodium (Colace) 200 mg PO DAILY [facility] Last Admin: 12/26/18 09:26 Dose: 200 mg Lactulose (Enulose) 20 gm PO DAILY [facility] Last Admin: 12/26/18 09:26 Dose: 20 gm Methylprednisolone (Medrol) 4 mg PO BID [facility] Last Admin: 12/26/18 09:26 Dose: 4 mg Morphine Sulfate (Morphine) 4 mg IVP Q6 PRN PRN Reason: Pain, severe (8-10) Stop: 12/26/18 19:50 Last Admin: 12/26/18 12:28 Dose: 4 mg Physical Exam - Constitutional Appears: Well - Head Exam Head Exam: ATRAUMATIC, NORMAL INSPECTION, NORMOCEPHALIC - Eye Exam Eye Exam: EOMI, Normal appearance, PERRL Pupil Exam: NORMAL ACCOMODATION, PERRL - ENT Exam ENT Exam: Mucous Membranes Moist, Normal Exam - Neck Exam Neck exam: Positive for: Normal Inspection - Respiratory Exam Respiratory Exam: Clear to Auscultation Bilateral, NORMAL BREATHING PATTERN - Cardiovascular Exam Cardiovascular Exam: REGULAR RHYTHM - GI/Abdominal Exam GI & Abdominal Exam: Normal Bowel Sounds, Soft. absent: Tenderness - Extremities Exam Extremities exam: Positive for: normal inspection - Back Exam Back exam: NORMAL INSPECTION - Neurological Exam Neurological exam: Alert, CN II-XII Intact, Normal Gait, Oriented x3, Reflexes Normal - Psychiatric Exam Psychiatric exam: Normal Affect, Normal Mood - Skin Skin Exam: Dry, Intact, Normal Color, Warm Results - Vital Signs Recent Vital Signs: Last Vital Signs Temp 98.1 F 12/26/18 12:00 Pulse 74 12/26/18 12:00 Resp 20 12/26/18 12:00 BP 121/70 12/26/18 12:00 Pulse Ox 97 12/26/18 12:00 - Labs Result Diagrams: 12/26/18 05:40 12/23/18 06:35 Labs: Laboratory Results - last 24 hr 12/25/18 12/26/18 12:45 05:40 WBC 9.1 8.4 RBC 3.33 L 3.19 L Hgb 10.0 L 9.8 L Hct 30.5 L 29.1 L MCV 91.5 91.0 MCH 30.0 30.7 MCHC 32.8 L 33.8 RDW 14.8 H 14.6 H Plt Count 224 236 MPV 7.3 Neut % (Auto) 59.4 Lymph % (Auto) 32.2 [place] % (Auto) 7.4 Eos % (Auto) 0.9 Baso % (Auto) 0.1 Neut # (Auto) 5.0 Lymph # (Auto) 2.7 [place] # (Auto) 0.6 Eos # (Auto) 0.1 Baso # (Auto) 0.0 Assessment & Plan (1) Rectus sheath hematoma Assessment and Plan: resume plavix in am observe x 48 hours if H&H stable then restart asa 81mg and dc home on asa and plavix Status: Acute (2) CAD (coronary artery disease) Assessment and Plan: resume bb and acei ( low dose ) Status: Acute (3) COPD (chronic obstructive pulmonary disease) Status: Acute (4) HTN (hypertension) Status: Acute (5) Hyperlipidemia Status: Acute
[2018-12-26] MEDS ORDERED: Morphine 4 MG/ML VIAL IVP PRN (20:06)
--- NOTE | 2018-12-27 06:28 | CP.PCM.PN ---
Subjective - Date & Time of Evaluation Date of Evaluation: 12/27/18 Time of Evaluation: 09:26 - Subjective Subjective: Patient seen and examined this morning at bedside. Patient sitting upright breathing comfortably on 2 L of NC saturating at 94%. Patient's abdominal pain is well controlled with current pain medication. She denies any f/c/n/v/d/cp or sob. Objective - Vital Signs/Intake and Output Vital Signs (last 24 hours): Temp Pulse Resp BP Pulse Ox 97.8 F 76 18 130/79 96 12/27/18 00:15 12/27/18 00:15 12/27/18 00:15 12/27/18 00:15 12/27/18 00:15 - Medications Medications: Current Medications Albuterol (Ventolin Hfa 90 Mcg/Actuation (8 G)) 2 puff IH Q4 PRN PRN Reason: Shortness of Breath Albuterol/Ipratropium (Duoneb 3 Mg/0.5 Mg (3 Ml) Ud) 3 ml IH Q6 PRN PRN Reason: Shortness of Breath Albuterol/Ipratropium (Duoneb 3 Mg/0.5 Mg (3 Ml) Ud) 3 ml INH RTID [facility] Last Admin: 12/26/18 19:19 Dose: 3 ml Clopidogrel Bisulfate (Plavix) 75 mg PO DAILY [facility] Last Admin: 12/26/18 09:26 Dose: 75 mg Docusate Sodium (Colace) 200 mg PO DAILY [facility] Last Admin: 12/26/18 09:26 Dose: 200 mg Lactulose (Enulose) 20 gm PO DAILY [facility] Last Admin: 12/26/18 09:26 Dose: 20 gm Methylprednisolone (Medrol) 4 mg PO BID [facility] Last Admin: 12/26/18 16:52 Dose: 4 mg Morphine Sulfate (Morphine) 4 mg IVP Q6 PRN PRN Reason: Pain, severe (8-10) Last Admin: 12/27/18 02:11 Dose: 4 mg - Labs Labs: 12/26/18 05:40 12/23/18 06:35 PT 12.1 Seconds (9.8-13.1) 12/24/18 11:00 INR 1.1 12/24/18 11:00 APTT 23.0 Seconds (25.6-37.1) L 12/24/18 11:00 - Constitutional Appears: Non-toxic - Head Exam Head Exam: ATRAUMATIC - Eye Exam Pupil Exam: PERRL - ENT Exam ENT Exam: Mucous Membranes Moist - Respiratory Exam Respiratory Exam: absent: Respiratory Distress - Cardiovascular Exam Cardiovascular Exam: REGULAR RHYTHM, +S1, +S2 - GI/Abdominal Exam GI & Abdominal Exam: Soft. absent: Guarding, Rigid, Tenderness Additional comments: ecchymosis noted diffusely on abdomen, left flank, and back as expected - Neurological Exam Neurological Exam: Alert, Awake, Oriented x3 - Psychiatric Exam Psychiatric exam: Normal Mood - Skin Skin Exam: Dry Assessment and Plan - Assessment and Plan (Free Text) Assessment: A/P: 63 yo female with history of HTN, COPD, fibromyalgia, migraines, chronic fatigue and [place] 07/2018 s/p stent with recent discharge for COPD exacerbation admitted for further management of 11.3cm intramuscular or submuscular hematoma at left rectus abdominus muscle. Abdominal wall hematoma /rectus sheath hematoma -s/p 2 prbc transfusion ; H & H stable with Hemoglobin 9.9 this morning -Chest & Abd CT previously reviewed with Dr. Atkins who reported no active bleed and continued monitoring of H & H. - If Hgb <8, transfuse -C/w pain management as recommended by Dr. Karimi- IV morphine PRN Acute blood loss anemia (likely from extravasation of blood into abdominal wall -s/p 2 prbc transfusion; Hemoglobin 9.9 this morning -Monitor of H & H COPD with hypoxemia (chronic) -c/w oxygen via nasal canula to maintain 02 sat b/w 88-92% -C/w Alb Q4 prn -C/w Dooneb Q6 prn -C/w Salumedrol 3 mg PO BID Recent Hx of [place] and s/p Stent -Plavix 75 mg PO was restarted as recommended by Dr. Abdi -IF H & H remains stable will dc home with ASA & plavix tomorrow HTN (Chronic, Controlled) -hold meds Newly dx DM-II - A1C 6.6 - C/w Diabetic diet Constipation ( chronic, likely due to chronic morphine use) -C/w colace daily, fleet enema prn
[2018-12-27 07:01] LABS: HEMOGLOBIN 9.9 g/dL (12.0-16.0); MEAN CELL VOLUME 92.5 fl (81.0-99.0); MEAN CORPUSCULAR HEMOGLOBIN 30.9 pg (27.0-31.0); MEAN CORPUSCULAR HGB CONC 33.4 g/dL (33.0-37.0); RBC 3.2 Mil/uL (3.80-5.20); RED CELL DISTRIBUTION WIDTH 14.4 % (11.5-14.5); WHITE BLOOD COUNT 8.4 K/uL (4.8-10.8)
[2018-12-27] MEDS: Albuterol-Ipratrop 3 mg / 0.5 (3 ml) UD INH SCH ×3 (07:30→19:15)
[2018-12-27 07:53] LABS: ALB/GLOB RATIO 1.2 (1.0-2.1); ALBUMIN 3.1 g/dL (3.5-5.0); ALT/SGPT 44 U/L (9-52); AST/SGOT 26 U/L (14-36); BLOOD UREA NITROGEN 11 mg/dl (7-17); CALCIUM 8.1 mg/dL (8.4-10.2); GFR NON-AFRICAN AMERICAN > 60
[2018-12-27] MEDS: Oxycodone/Acetaminophen 5/325 mg Tab PO PRN ×4 (08:36→20:43)
[2018-12-27] MEDS: FLUTICASONE PROPION/SALMETEROL 113MCG/14MCG 60 PUFF IH SCH ×2 (08:45→16:44)
[2018-12-27] MEDS ORDERED: Potassium Chloride 20 mEq ER Tab PO ONE (13:37)
[2018-12-27 16:35] VITALS: RESP 18
[2018-12-27 21:39] VITALS: BMI 24.1
[2018-12-28] MEDS: Oxycodone/Acetaminophen 5/325 mg Tab PO PRN ×4 (00:17→12:38)
[2018-12-28 06:27] LABS: BLOOD UREA NITROGEN 13 mg/dl (7-17); CALCIUM 8.6 mg/dL (8.4-10.2); GFR NON-AFRICAN AMERICAN > 60
[2018-12-28 06:28] LABS: BASO % 0.2 % (0.0-2.0); EOS # 0.2 K/uL (0.0-0.7); EOS % 1.7 % (0.0-4.0); LYMPH # 2.9 K/uL (1.0-4.3); LYMPH % 32.7 % (20.0-40.0); MEAN CORPUSCULAR HEMOGLOBIN 30.8 pg (27.0-31.0); MEAN CORPUSCULAR HGB CONC 33.1 g/dL (33.0-37.0); MONO # 0.7 K/uL (0.0-0.8); MONO % 7.5 % (0.0-10.0); NEUT # 5.2 K/uL (1.8-7.0); NEUT % 57.9 % (50.0-75.0); NRBC % 0.2 % (0.0-0.0); RBC 3.26 Mil/uL (3.80-5.20)
[2018-12-28] MEDS: Albuterol-Ipratrop 3 mg / 0.5 (3 ml) UD INH SCH ×2 (07:37→14:02)
[2018-12-28 09:13] VITALS: BP 111/63; PULSE 60; TEMP 97.1; O2SAT 100
[2018-12-28] MEDS: FLUTICASONE PROPION/SALMETEROL 113MCG/14MCG 60 PUFF IH SCH (09:13)
--- NOTE | 2018-12-28 09:14 | CP.PCM.DIS ---
Provider - Provider Date of Admission: 12/25/18 08:31 Attending physician: Nirmal Martin MD Primary care physician: Venu Andrade MD Consults: 12/22/18 07:05 Surgery [General Surgery Consult] Stat Comment: Consulting Provider: Kirit Garcia Consulting Physician: Kirit Garcia Reason for Consult: abdominal wall hematoma 12/22/18 16:30 Physician Consult Routine Comment: Consulting Provider: Prashanth Karimi Consulting Physician: Prashanth Karimi Reason for Consult: pain management 12/25/18 12:02 Physician Consult Routine Comment: Consulting Provider: Cole Abdi Consulting Physician: Cole Abdi Reason for Consult: abdominal hematoma, off brilinta at this time Time Spent in preparation of Discharge (in minutes): 30 Hospital Course - Lab Results Lab Results: Most Recent Lab Values WBC 9.0 K/uL (4.8-10.8) 12/28/18 05:45 RBC 3.26 Mil/uL (3.80-5.20) L 12/28/18 05:45 Hgb 10.0 g/dL (12.0-16.0) L 12/28/18 05:45 Hct 30.3 % (34.0-47.0) L 12/28/18 05:45 MCV 93.0 fl (81.0-99.0) 12/28/18 05:45 MCH 30.8 pg (27.0-31.0) 12/28/18 05:45 MCHC 33.1 g/dL (33.0-37.0) 12/28/18 05:45 RDW 15.0 % (11.5-14.5) H 12/28/18 05:45 Plt Count 276 K/uL (130-400) 12/28/18 05:45 MPV 7.0 fl (7.2-11.7) L 12/28/18 05:45 Neut % (Auto) 57.9 % (50.0-75.0) 12/28/18 05:45 Lymph % (Auto) 32.7 % (20.0-40.0) 12/28/18 05:45 [place] % (Auto) 7.5 % (0.0-10.0) 12/28/18 05:45 Eos % (Auto) 1.7 % (0.0-4.0) 12/28/18 05:45 Baso % (Auto) 0.2 % (0.0-2.0) 12/28/18 05:45 Neut # (Auto) 5.2 K/uL (1.8-7.0) 12/28/18 05:45 Lymph # (Auto) 2.9 K/uL (1.0-4.3) 12/28/18 05:45 [place] # (Auto) 0.7 K/uL (0.0-0.8) 12/28/18 05:45 Eos # (Auto) 0.2 K/uL (0.0-0.7) 12/28/18 05:45 Baso # (Auto) 0.0 K/uL (0.0-0.2) 12/28/18 05:45 Neutrophils % (Manual) 68 % (42-75) 12/22/18 10:20 Lymphocytes % (Manual) 22 % (20-50) 12/22/18 10:20 Monocytes % (Manual) 7 % (0-10) 12/22/18 10:20 Metamyelocytes % 1 % (0-0) H 12/22/18 10:20 Myelocytes % 2 % (0-0) H 12/22/18 10:20 Platelet Estimate Normal (NORMAL) 12/22/18 10:20 Hypochromasia (manual) Slight 12/22/18 10:20 Target Cells Slight 12/22/18 10:20 Ovalocytes Slight 12/22/18 10:20 PT 12.1 Seconds (9.8-13.1) 12/24/18 11:00 INR 1.1 12/24/18 11:00 APTT 23.0 Seconds (25.6-37.1) L 12/24/18 11:00 Sodium 139 mmol/l (132-148) 12/28/18 05:45 Potassium 4.2 MMOL/L (3.6-5.0) 12/28/18 05:45 Chloride 104 mmol/L (98-107) 12/28/18 05:45 Carbon Dioxide 30 mmol/L (22-30) 12/28/18 05:45 Anion Gap 9 (10-20) L 12/28/18 05:45 BUN 13 mg/dl (7-17) 12/28/18 05:45 Creatinine 0.7 mg/dl (0.7-1.2) 12/28/18 05:45 Est GFR ( Amer) > 60 12/28/18 05:45 Est GFR (Non-Af Amer) > 60 12/28/18 05:45 Random Glucose 112 mg/dL (65-105) H 12/28/18 05:45 Lactic Acid 1.5 mmol/L (0.7-2.1) 12/22/18 02:51 Calcium 8.6 mg/dL (8.4-10.2) 12/28/18 05:45 Total Bilirubin 0.8 mg/dl (0.2-1.3) 12/27/18 05:20 AST 26 U/L (14-36) 12/27/18 05:20 ALT 44 U/L (9-52) 12/27/18 05:20 Alkaline Phosphatase 47 U/L (38-126) 12/27/18 05:20 Total Protein 5.8 G/DL (6.3-8.2) L 12/27/18 05:20 Albumin 3.1 g/dL (3.5-5.0) L D 12/27/18 05:20 Globulin 2.7 gm/dL (2.2-3.9) 12/27/18 05:20 Albumin/Globulin Ratio 1.2 (1.0-2.1) 12/27/18 05:20 Lipase 55 U/L (23-300) 12/22/18 02:51 Urine Color [place] (YELLOW) 12/23/18 08:30 Urine Clarity Cloudy (Clear) 12/23/18 08:30 Urine pH 5.0 (5.0-8.0) 12/23/18 08:30 Ur Specific [place] 1.036 (1.003-1.030) H 12/23/18 08:30 Urine Protein 30 mg/dL (NEGATIVE) 12/23/18 08:30 Urine Glucose (UA) Neg mg/dL (NEGATIVE) 12/23/18 08:30 Urine Ketones Trace mg/dL (NEGATIVE) 12/23/18 08:30 Urine Blood Negative (NEGATIVE) 12/23/18 08:30 Urine Nitrate Negative (NEGATIVE) 12/23/18 08:30 Urine Bilirubin Negative (NEGATIVE) 12/23/18 08:30 Urine Urobilinogen 1.0 mg/dL (0.2-1.0) 12/23/18 08:30 Ur Leukocyte Esterase Neg [place]/uL (Negative) 12/23/18 08:30 Urine RBC (Auto) 3 /hpf (0-3) 12/23/18 08:30 Urine Microscopic WBC 5 /hpf (0-5) 12/23/18 08:30 Ur Squamous Epith Cells 1 /hpf (0-5) 12/23/18 08:30 Urine Bacteria Rare (<OCC) 12/23/18 08:30 Blood Type O POSITIVE 12/22/18 14:20 Antibody Screen Negative 12/22/18 14:20 Crossmatch See Detail 12/22/18 14:20 BBK History Checked Patient has bt 12/22/18 14:20 - Hospital Course Hospital Course: 63 yo female with history of HTN, COPD, fibromyalgia, migraines, chronic fatigue and [place] 07/2018 s/p stent with recent discharge for COPD exacerbation admitted for further management of 11.3cm left rectus sheath hematoma. Patient was given lovenox for DVT prophylaxis during the prior admission and was also on Brillinta. Surgery and IR were consulted and brillinta was held. H& H was monitored and Hgb noted to drop from 12 to 7.5. She was transfused [address] showed no active bleed. At present Hgb stable 10. Cardiology was negative and plavix was recommended because patient has resent cardiac stent placed. Patient will be discharged on plavix and aspirin today. Patient will be discharged today with fu with PMD & traffic and transport planner. 1.Left Abdominal rectus muscle sheath spontaneous hematoma after lovenox use 2. Acute blood loss anemia secondary to hematoma 3.Chronic COPD on home O2 4.Hypertension, stable, chronic , controlled 5.Migraine [place] 6.Fibromyalgia 7. New [place] with stent -Discharged with aspirin and plavix 8. DM type II -HGb A1c 6.6 9. Constipation Discharge Exam - Head Exam Head Exam: ATRAUMATIC - Eye Exam Pupil Exam: PERRL - ENT Exam ENT Exam: Mucous Membranes Moist - Respiratory Exam Respiratory Exam: NORMAL BREATHING PATTERN - Cardiovascular Exam Cardiovascular Exam: REGULAR RHYTHM, +S1, +S2 - GI/Abdominal Exam GI & Abdominal Exam: Normal Bowel Sounds, Soft. absent: Guarding, Rigid, Tenderness Additional comments: ecchymosis resolving on the left flank, abdomen, and back - Neurological Exam Neurological exam: Alert, Oriented x3 - Psychiatric Exam Psychiatric exam: Normal Mood - Skin Skin Exam: Dry Discharge Plan - Discharge Medications Prescriptions: Clopidogrel Bisulfate [Plavix] 75 mg PO DAILY 30 Days #30 tablet Docusate Sodium [Colace] 200 mg PO DAILY 30 Days #30 capsule - Follow Up Plan Condition: FAIR Disposition: HOME/ ROUTINE Referrals: Venu Andrade MD [Primary Care Provider] - Clinical Quality Measures - CQM - VTE Did patient receive overlap therapy during hosptialization?: No
--- NOTE | 2018-12-28 19:05 | PQF ---
PROVIDER RESPONSE TEXT: Should read as recent HI with stent placed in May by doctor Abdi REVIEWER QUERY TEXT: Documentation Clarification Your help is requested in clarifying the following clinical documentation, if you can please further specify in the medical record and discharge summary. Documentation of New HI with stent noted in the medical record. Noted to have a history of HI with stent placement per Dr. Abdi in May 2018. Please clarify if the patient had a New HI for this admission or previous admission The patient's Clinical Indicators include: x Query created by: Emilia Ledezma on 12/28/2018 1:25 PM Electronically signed by: Kori Hdz 12/28/2018 7:02 PM
== END 2018-12-28 14:45 | disposition home or self-care (01) | DRG 812 ==
LOC: H.ER 02:07 → OBSVTOIN 08:58 → H.ERHOLD 08:58 → UNDOADMOB 08:58 → INTOOBSV 08:58 → H.ERHOLD 11:52 → H.MEDSURG1 11:52 → H.TEL 12-23 22:47 → H.MEDSURG1 12-23 22:47 → H.TEL 12-25 08:31 → OBSVTOIN 12-25 08:31 → H.MEDSURG1 12-25 08:31 → H.ERHOLD 12-25 08:31 → H.MEDSURG1 12-26 23:18
PROC: 30233N1 Transfusion of Nonautologous Red Blood Cells into Peripheral Vein, Percutaneous Approach (ICD-10-PCS; principal; 2018-12-24)
DX: T80.89XA Other complications following infusion, transfusion and therapeutic injection, initial encounter (principal); D62 Acute posthemorrhagic anemia; M79.81 Nontraumatic hematoma of soft tissue; Z79.02 Long term (current) use of antithrombotics/antiplatelets; J44.9 Chronic obstructive pulmonary disease, unspecified; G89.29 Other chronic pain; M79.7 Fibromyalgia; R09.02 Hypoxemia; Z99.81 Dependence on supplemental oxygen; E78.00 Pure hypercholesterolemia, unspecified; E78.5 Hyperlipidemia, unspecified; G43.909 Migraine, unspecified, not intractable, without status migrainosus; Z79.82 Long term (current) use of aspirin; Z95.5 Presence of coronary angioplasty implant and graft; Z96.649 Presence of unspecified artificial hip joint; I25.10 Atherosclerotic heart disease of native coronary artery without angina pectoris; F41.9 Anxiety disorder, unspecified; I10 Essential (primary) hypertension; I25.2 Old myocardial infarction; K59.00 Constipation, unspecified; Y84.8 Other medical procedures as the cause of abnormal reaction of the patient, or of later complication, without mention of misadventure at the time of the procedure; K59.03 Drug induced constipation; T40.2X5A Adverse effect of other opioids, initial encounter; E11.9 Type 2 diabetes mellitus without complications